=== PATIENT | female | born 1995 | race Caucasian/White ===

== ENCOUNTER 2020-01-19 01:04 | Emergency (ER) | payer BC, SELFPAY ==
--- OUTSIDE RECORDS SUMMARY | 2020-01-19 01:06 | XMS REPORT ---
:1995 [facility] Address [address] [place] [address] Care Team Providers Name Role Phone LINSEY GILLILAND Unavailable Unavailable Problems This patient has no known problems. Allergies, Adverse Reactions, Alerts This patient has no known allergies or adverse reactions. Medications This patient has no known medications. Results Test Description Test Time Test Comments Text Results Atomic Results Result Comments Culture, Urine 2017-05-08 10:14:00 Test Item Value Reference Range Comments Culture, Urine (test code=URC) NF Culture, Urine (test code=URC1) 25 MSF Chemistry - [id number] 01:45:00 Test Item Value Reference Range Comments Chemistry - Specials (test code=TSH3) 1.2111 uIU/mL 0.35-4.94 [id number] 01:41:00 Test Item Value Reference Range Comments Chemistry (test code=AMERICO) 28.0 U/L 25-125 [id number] 01:41:00 Test Item Value Reference Range Comments Chemistry (test code=LIP) 7 U/L 8-78 [id number] 01:41:00 Test Item Value Reference Range Comments Chemistry (test Less than 6.0 6.0-30.0 Therapeutic Range: 10.0 - 30.0 code=ACET-T) mcg/mL ug/mLToxic Range: Possible toxicity: 150 - 200 ug/mL Probable toxicity: Greater than 200 ug/mL*IMPORTANT TESTING INFORMATION* The half-life of NAC is 2 hours. The total NAC clearanceis 5.6 hours for adults and 11 hours for Newborns. Testing acetaminophen levels prior to a reasonable timeframe for clearance can cause falsely decreasedacetaminophen levels. Chemistry (test Less than 10 Less than 10 The pharmacological response to code=ETOH) mg/dL blood alcohol levels mayvary from individual to individual. Negative: Less than 10 mg/dL Toxic: 50 - 100 mg/dL Depression of EXCELSIOR MACHINE TENDER: Greater than 100 mg/dL Fatalities reported: Greater than 400 mg/dL Chemistry (test Less than 8.0 15.0-30.0 code=SALCY) mg/dL [id number] 01:32:00 Test Item Value Reference Range Comments Hematology (test code=WBCT) 10.8 thou/uL 4.8-10.8 Hematology (test code=RBCT) 4.69 mill/uL 4.20-5.40 Hematology (test code=HGBT) 14.3 g/dL 12.0-16.0 Hematology (test code=HCTT) 41.1 % 36.0-47.0 Hematology (test code=MCV) 87.8 fl 81.0-99.0 Hematology (test code=MCH) 30.5 pg 27.0-31.0 Hematology (test code=MCHC) 34.8 g/dL 32.0-36.0 Hematology (test code=RDW) 12.9 % 11.5-14.5 Hematology (test code=PLTT) 270 thou/uL 130-400 Hematology (test code=MPV) 10.3 fL 7.4-10.4 Hematology (test code=%NEUT) 69.3 % 42.0-75.0 Hematology (test code=%LYMPH) 22.9 % 21.0-51.0 Hematology (test code=%MONO) 6.3 % 0.0-10.0 Hematology (test code=%EOS) 0.6 % 0.0-10.0 Hematology (test code=%BASO) 0.9 % 0.0-1.0 Hematology (test code=NEUT#) 7.5 thou/uL 1.40-6.50 Hematology (test code=LYMPH#) 2.5 thou/uL 1.20-3.40 Hematology (test code=MONO#) 0.7 thou/uL 0.11-0.59 Hematology (test code=EOS#) 0.1 thou/uL 0.0-0.7 Hematology (test code=BASO#) 0.1 thou/uL 0.0-0.2 Chemistry - [id number] 01:32:00 Test Item Value Reference Range Comments Chemistry - Specials Less than 1.20 See Ranges Males and Non (test code=HCGQ) mIU/mL females: Less than 10 mIU/mLPregnancy, weeks of gestation mIU/mL 0.2 - 1 week 5 - 50 1 - 2 weeks 50 - 500 2 - 3 weeks 100 - 5,000 3 - 4 weeks 500 - 10,000 4 - 5 weeks 1,000 - 50,000 5 - 6 weeks 10,000 - 100,000 6 - 8 weeks 15,000 - 200,000 2 - 3 months 10,000 - 100,000 [id number] 01:24:00 Test Item Value Reference Range Comments Chemistry (test 140 mmol/L 136-145 code=NA-T) Chemistry (test code=K-T) 3.5 mmol/L 3.5-5.1 Chemistry (test code=CL) 108 mmol/L 98-107 Chemistry (test code=CO2) 20 mmol/L 22-29 Chemistry (test 16 mmol/L 10-20 code=ANGP) Chemistry (test code=BUN) 13 mg/dL 7.0-18.7 Chemistry (test 0.74 mg/dL 0.6-1.1 code=CREATT) Chemistry (test Greater than 90 Reference Range for code=EGFRMDRD) Estimated GFR: Greater than 90 mL/min/1.73 m2NOTE:The MDRD equation has not been validated for use with theelderly (over 70 years of age), women, patientswith serious comorbid condition or persons with extremes ofbody size, muscle mass, or nutritional status. Chemistry (test 113 mg/dL 70-105 code=GLU-T) Chemistry (test code=CA) 9.8 mg/dL 7.8-10.44 Chemistry (test 0.7 mg/dL 0.2-1.2 code=TBILI) Chemistry (test code=TP) 7.3 g/dL 6.0-8.3 Chemistry (test code=ALB) 4.5 g/dL 3.5-5.0 Chemistry (test 2.8 g/dL 2.4-3.5 code=GLOB) Chemistry (test code=AG) 1.6 g/dL 1.2-2.2 Chemistry (test code=ALP) 83 U/L 40-150 Chemistry (test code=AST) 14 U/L 5-34 Chemistry (test code=ALT) 14 U/L 8-55 [id number] 01:20:00 Test Item Value Reference Range Comments Urinalysis (test Dark Yellow Yellow code=UACLR) Urinalysis (test Slightly Cloudy Clear code=UACLY) Urinalysis (test 1.031 1.002-1.036 code=SPGR) Urinalysis (test 6.0 5.0-9.0 code=CARMEN) Urinalysis (test Negative Negative code=UALEU) Urinalysis (test Negative Negative code=UANIT) Urinalysis (test > or equal to 300 Neg-Trace code=PROUADIP) mg/dL Urinalysis (test Negative mg/dL Negative code=GLUCU) Urinalysis (test Negative mg/dL Negative code=KETU) Urinalysis (test 2.0 mg/dL 0.2-1.0 code=UAUROB) Urinalysis (test Small Negative CAU code=UABIL) TION Urine Bilirubin has a high incidence of false positiveresults due to urine color interference.Interpret results in conjunction with other clinicalfindings. Urinalysis (test Trace Negative code=UABLD) Urinalysis (test 4-6 HPF 0-3 code=UARBC) Urinalysis (test 11-20 HPF 0-3 code=UAWBC) Urinalysis (test 11-20 HPF 0-3 code=UASQUAM) Urinalysis (test 0-3 HPF 0-3 code=UATRANS) Urinalysis (test 0-3 HPF 0-3 code=UARENAL) Urinalysis (test 1+ HPF None Seen code=UABAC) Urinalysis (test Rare HPF None Seen code=UAYEAST) Urinalysis (test RARE AMORPH URATES Negative code=UACRST) HPF Urine Source: Urine [id number] 01:18:00 Test Item Value Reference Range Comments Toxicology (test Detected NotDetected code=ASCENCION) Toxicology (test Not Detected NotDetected code=PCP) Toxicology (test Not Detected NotDetected code=COCN) Toxicology (test Detected NotDetected code=METHAMPU) Toxicology (test Not Detected NotDetected code=OPIA) Toxicology (test Detected NotDetected code=AMPHU) Toxicology (test Not Detected NotDetected code=LIBIA) Toxicology (test Not Detected NotDetected code=TRICY) Toxicology (test Not Detected NotDetected code=MTD) Toxicology (test Not Detected NotDetected code=CATALINA) Toxicology (test Not Detected NotDetected code=OXYCOD) Toxicology (test Not Detected NotDetected code=PPX) Toxicology (test The [employer] Profile-V Panel code=MTCUTOFF) for Qualitative Drugs ofAbuse assays are for presumptive screening testing only.The drug class and detection limits are as follows:Drug Class Detection LimitAmphetamine 500 ng/mL*Barbiturates 200 ng/mLBenzodiazepines 150 ng/mL*Cocaine 150 ng/mL*Methamphetamine 500 ng/mL*Methadone 200 ng/mL*Opiates 100 ng/mL*Oxycodone 100 ng/mLPCP 25 ng/mLPropoxyphene 300 ng/mLTricyclic Antidepressants 300 ng/mLCannabinoids (THC) 50 ng/mLTests which yield a presumptive positive result must betested using a more specific alternate chemical method inorder to obtain a confirmed analytical result. Additionalconfirmation and identification may be ordered on a routinebasis, if desired. Presumptive positive urines are held fortwo weeks. Urine Source: Urine Voided
[2020-01-19] MEDS ORDERED: NA CHLORIDE 0.9% 1,000 ML ONE (01:53)
[2020-01-19 01:59] LABS: Absolute Lymphocytes (CBC) 3.5 K/uL (0.7-4.9); Basophils % 0.7 % (0-1.3); Hematocrit 39.4 % (36.0-45.0); Lymphocytes % 23.7 % (15.3-44.8); RBC Red Blood Cell Count 4.52 M/uL (3.86-4.86)
[2020-01-19 02:01] LABS: Protime INR 0.92
[2020-01-19 02:19] LABS: ALT/SGPT 25 U/L (12-78); AST/SGOT 15 U/L (15-37); Albumin 3.4 g/dL (3.4-5.0); Alkaline Phosphatase 89 U/L (45-117); BUN Blood Urea Nitrogen 10 mg/dL (7-18); Bicarbonate 21 mmol/L (21-32); Bilirubin Direct < 0.1 mg/dL (0-0.2); Bilirubin Total 0.2 mg/dL (0.2-1.0); Glucose Level 167 mg/dL (74-106); Potassium 3.5 mmol/L (3.5-5.1); Protein, Total 7.4 g/dL (6.4-8.2); Sodium Level 139 mmol/L (136-145); Troponin (Emerg Dept Use Only) < 0.02 ng/mL (0.0-0.045)
[2020-01-19] MEDS ORDERED: MORPHINE 4 MG/ML SYR ONE (02:45)
[2020-01-19] MEDS ORDERED: ONDANSETRON 4 MG/2 ML VIAL ONE (02:45)
--- NOTE | 2020-01-19 03:00 | ER ---
Nurse's Notes [facility] Name: Nina Parrish Age: 24 yrs Sex: Female : 1995 Arrival Date: 01/19/2020 Time: 01:06 Bed 17 Private MD: Diagnosis: Chest pain, unspecified Presentation: 01/19 01:21 Presenting complaint: Patient states: Pt reports she started having chest pain two to ea three days ago, reports pain radiates to back, states "I also have a lump in my left breast that has been there for the past ten years". Transition of care: patient was not received from another setting of care. Onset of symptoms was January 19, 2020. Risk Assessment: Do you want to hurt yourself or someone else? Patient reports no desire to harm self or others. Initial Sepsis Screen: Does the patient meet any 2 criteria? HR > 90 bpm. Does the patient have a suspected source of infection? No. Patient's initial sepsis screen is negative. Care prior to arrival: None. 01:21 Method Of Arrival: Ambulatory ea 01:21 Acuity: OMAIRA 3 ea Triage Assessment: :24 General: Appears uncomfortable, Behavior is appropriate for age. Pain: Complains of ea pain in left breast Pain radiates to back and chest. Cardiovascular: Patient's skin is warm and dry. Respiratory: Airway is patent Respiratory effort is even, unlabored, Respiratory pattern is regular, symmetrical. Derm: Skin is pink, warm \\T\\ dry. Musculoskeletal: Circulation, motion, and sensation intact. [employer] OFFICER: 01:22 LMP N/A - control method ea Historical: - Allergies: :24 No Known Allergies; ea - Home Meds: :24 None [Active]; ea - PMHx: :24 None; ea - PSHx: :24 None; ea - Immunization history:: Adult Immunizations up to date. - Coronavirus screen:: The patient has NOT traveled to [place] in the past 14 days. Proceed with normal triage process as indicated. - Social history:: Smoking status: Patient reports the use of cigarette tobacco products, denies chronic smoking, but will smoke occasionally. - Ebola Screening: : No symptoms or risks identified at this time. Screenin:23 Abuse screen: Denies threats or abuse. Nutritional screening: No deficits noted. ea Tuberculosis screening: No symptoms or risk factors identified. Fall Risk None identified. Assessment: 01:35 General: Appears in no apparent distress. Behavior is calm, cooperative, appropriate wh for age. Pain: Complains of pain in left breast Pain radiates to back Pain currently is 66 out of 10 on a pain scale. Quality of pain is described as aching, Pain began 2-3 days ago. Neuro: Level of Consciousness is awake, alert, obeys commands, Oriented to person, place, time, situation, Appropriate for age. Cardiovascular: Heart tones S1 S2 Rhythm is regular. Respiratory: Airway is patent Respiratory effort is even, unlabored, Respiratory pattern is regular, symmetrical, Breath sounds are clear bilaterally. GI: Abdomen is flat, non-distended. : No signs and/or symptoms were reported regarding the genitourinary system. EENT: No signs and/or symptoms were reported regarding the EENT system. Derm: Skin is intact, is healthy with good turgor, Skin is pink, warm \\T\\ dry. normal. Musculoskeletal: Circulation, motion, and sensation intact. 02:51 Reassessment: Patient appears in no apparent distress at this time. No changes from previously documented assessment. Patient and/or family updated on plan of care and expected duration. Pain level reassessed. Patient is alert, oriented x 3, equal unlabored respirations, skin warm/dry/pink. Vital Signs: 01:22 BP 134 / 78; Pulse 119; Resp 18; Temp 98.9; Pulse Ox 95% ; Weight 98.43 kg; Height 5 ea ft. 1 in. (154.94 cm); Pain 6/10; 02:54 BP 116 / 65; Pulse 92; Resp 18; Pulse Ox 98% on R/A; wh 03:09 BP 109 / 74; Pulse 102; Resp 17; Temp 98.5; Pulse Ox 100% on R/A; rv 01:22 Body Mass Index 41.00 (98.43 kg, 154.94 cm) ED Course: 01:06 Patient arrived in ED. ag3 01:21 Trent Schmidt NP is PHCP. pm1 01:21 Matheus Ann MD is Attending Physician. pm1 01:22 Triage completed. ea 01:24 Arm band placed on right wrist. Patient placed in an exam room, on a stretcher, on ea pulse oximetry. 01:25 Patient maintains SpO2 saturation greater than 95% on room air. ea 01:35 Patient has correct armband on for positive identification. Bed in low position. Call light in reach. Side rails up X 1. Pulse ox on. NIBP on. 01:49 Ceferino Proctor is Primary Nurse. 01:57 Inserted saline lock: 24 gauge in right hand, using aseptic technique. ea 02:34 XRAY Chest (1 view) In Process Unspecified. EDMS 03:09 No provider procedures requiring assistance completed. IV discontinued, intact, rv bleeding controlled, No redness/swelling at site. Pressure dressing applied. Administered Medications: 01:57 Drug: NS 0.9% 1000 ml Route: IV; Rate: 1000 ml; Site: right hand; ea 03:10 Follow up: Response: No adverse reaction; IV Status: Completed infusion ea 03:10 Follow up: IV Status: Completed infusion; IV Intake: 1000ml rv 02:47 Drug: morphine 4 mg Route: IVP; Site: right hand; ea 03:10 Follow up: Response: No adverse reaction ea 02:47 Drug: Zofran 4 mg Route: IVP; Site: right hand; ea 03:10 Follow up: Response: No adverse reaction rv Intake: 03:10 IV: 1000ml; Total: 1000ml. rv Outcome: 02:59 Discharge ordered by . pm1 03:09 Discharged to home ambulatory. rv 03:09 Condition: good 03:09 Discharge instructions given to patient, Instructed on discharge instructions, follow up and referral plans. medication usage, Demonstrated understanding of instructions, follow-up care, medications, Prescriptions given X 1. 03:10 Patient left the ED. rv Signatures: Dispatcher [employer] EDID Trent Schmidt, [employer]IC[employer] INTERNAL MEDICINE NURSE PRACTITIONER pm1 Emmie Pantoja, RN Ceferino Rob ea Malcolm Fragoso RN RN Delma Vargas3
--- NOTE | 2020-01-19 03:01 | EDPHYS ---
Physician Documentation [facility] Name: Nina Parrish Age: 24 yrs Sex: Female : 1995 Arrival Date: 01/19/2020 Time: 01:06 Bed 17 Private MD: ED Physician Matheus Ann HPI: 01/19 01:28 This 24 yrs old Female presents to ER via Ambulatory with complaints of Chest pm1 Pain. 01:28 The patient or guardian reports chest pain that is located primarily in the anterior pm1 aspect of right upper chest and left breast. Onset: The symptoms/episode began/occurred 1 week(s) ago. The pain radiates to back. Associated signs and symptoms: The patient has no apparent associated signs or symptoms, Pertinent negatives: abdominal pain, cough, fever, shortness of breath, vomiting. Modifying factors: The patient symptoms are alleviated by nothing, the patient symptoms are aggravated by Deep breathing. The chest pain is described as sharp. Duration: The patient or guardian reports multiple episodes. The patient has not experienced similar symptoms in the past. The patient has not recently seen a physician. Reports right breast mas present for 10 years. 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 - Coronavirus screen:: The patient has NOT traveled to [place] in the past 14 days. Proceed with normal triage process as indicated. - Social history:: Smoking status: Patient reports the use of cigarette tobacco products, denies chronic smoking, but will smoke occasionally. - Ebola Screening: : No symptoms or risks identified at this time. ROS: 01:28 Constitutional: Negative for fever, chills, and weight loss, Eyes: Negative for injury, pm1 pain, redness, and discharge, ENT: Negative for injury, pain, and discharge, Neck: Negative for injury, pain, and swelling. 01:28 Respiratory: Negative for shortness of breath, cough, wheezing, and pleuritic chest pain, Abdomen/GI: Negative for abdominal pain, nausea, vomiting, diarrhea, and constipation. 01:28 : Negative for injury, bleeding, discharge, and swelling, MS/Extremity: Negative for injury and deformity, Skin: Negative for injury, rash, and discoloration, Neuro: Negative for headache, weakness, numbness, tingling, and seizure. 01:28 Cardiovascular: Positive for chest pain, Negative for edema, palpitations. 01:28 Back: Positive for of the left scapular area and right scapular area. Exam: :28 Constitutional: This is a well developed, well nourished patient who is awake, alert, pm1 and in no acute distress. Head/Face: Normocephalic, atraumatic. Neck: Trachea midline, no thyromegaly or masses palpated, and no cervical lymphadenopathy. Supple, full range of motion without nuchal rigidity, or vertebral point tenderness. No Meningismus. :28 Cardiovascular: Regular rate and rhythm with a normal S1 and S2. No gallops, murmurs, or rubs. No pulse deficits. Respiratory: Lungs have equal breath sounds bilaterally, clear to auscultation and percussion. No rales, rhonchi or wheezes noted. No increased work of breathing, no retractions or nasal flaring. Abdomen/GI: Soft, non-tender, with normal bowel sounds. No distension or tympany. No guarding or rebound. No evidence of tenderness throughout. Back: No spinal tenderness. No costovertebral tenderness. Full range of motion. Skin: Warm, dry with normal turgor. Normal color with no rashes, no lesions, and no evidence of cellulitis. MS/ Extremity: Pulses equal, no cyanosis. Neurovascular intact. Full, normal range of motion. :28 Chest/axilla: Inspection: normal, Palpation: tenderness, that is mild, of the anterior aspect of left upper chest, that totally reproduces the patient's complaints, Breasts: exam deferred to PCP. :28 Neuro: Orientation: is normal, Motor: is normal, moves all fours. Vital Signs: 01:22 BP 134 / 78; Pulse 119; Resp 18; Temp 98.9; Pulse Ox 95% ; Weight 98.43 kg; Height 5 ea ft. 1 in. (154.94 cm); Pain 6/10; 02:54 BP 116 / 65; Pulse 92; Resp 18; Pulse Ox 98% on R/A; wh 03:09 BP 109 / 74; Pulse 102; Resp 17; Temp 98.5; Pulse Ox 100% on R/A; rv 01:22 Body Mass Index 41.00 (98.43 kg, 154.94 cm) ea MDM: 01:22 Patient medically screened. pm1 02:58 Data reviewed: vital signs. Data interpreted: Pulse oximetry: on room air is 98 %. pm1 Interpretation: normal. Counseling: I had a detailed discussion with the patient and/or guardian regarding: the historical points, exam findings, and any diagnostic results supporting the discharge/admit diagnosis, lab results, radiology results, the need for outpatient follow up, to return to the emergency department if symptoms worsen or persist or if there are any questions or concerns that arise at home. 01/19 01:28 Order name: Basic Metabolic Panel; Complete Time: 02:42 pm01/19 01:28 Order name: CBC with Diff; Complete Time: 02:42 pm01/19 01:28 Order name: LFT's; Complete Time: 02:42 pm01/19 01:28 Order name: Magnesium; Complete Time: 02:42 pm01/19 01:28 Order name: PT-INR; Complete Time: 02:42 pm01/19 01:28 Order name: Troponin (emerg Dept Use Only); Complete Time: 02:42 pm01/19 01:28 Order name: XRAY Chest (1 view) pm01/19 01:28 Order name: EKG; Complete Time: 01:31 pm01/19 01:28 Order name: Cardiac monitoring; Complete Time: 01:49 pm01/19 02:51 Order name: Urine Dipstick--Ancillary (enter results); Complete Time: 03:08 mt 01/19 02:51 Order name: Urine --Ancillary (enter results); Complete Time: 03:08 mt 01/19 01:28 Order name: EKG - Nurse/Tech; Complete Time: 01:49 pm01/19 01:28 Order name: IV Saline Lock; Complete Time: 01:57 pm01/19 01:28 Order name: Labs collected and sent; Complete Time: 01:49 pm01/19 01:28 Order name: O2 Per Protocol; Complete Time: 01:49 pm01/19 01:28 Order name: O2 Sat Monitoring; Complete Time: 01:49 pm1 01/19 01:28 Order name: Urine Dipstick-Ancillary (obtain specimen); Complete Time: 02:51 pm1 01/19 01:28 Order name: Urine Test (obtain specimen); Complete Time: 02:51 pm1 Administered Medications: 01:57 Drug: NS 0.9% 1000 ml Route: IV; Rate: 1000 ml; Site: right hand; ea 03:10 Follow up: Response: No adverse reaction; IV Status: Completed infusion ea 03:10 Follow up: IV Status: Completed infusion; IV Intake: 1000ml rv 02:47 Drug: morphine 4 mg Route: IVP; Site: right hand; ea 03:10 Follow up: Response: No adverse reaction ea 02:47 Drug: Zofran 4 mg Route: IVP; Site: right hand; ea 03:10 Follow up: Response: No adverse reaction rv Disposition: 01/19/20 02:59 Discharged to Home. Impression: Chest pain, unspecified. - Condition is Stable. - Discharge Instructions: Nonspecific Chest Pain. - Prescriptions for Cyclobenzaprine 10 mg Oral Tablet - take 1 tablet by ORAL route every 8 hours As needed; 30 tablet. - Medication Reconciliation Form, Thank You Letter, Antibiotic Education, Prescription Opioid Use, Work release form form. - Follow up: Emergency Department; When: As needed; Reason: Worsening of condition. Follow up: Private Physician; When: 2 - 3 days; Reason: Recheck today's complaints, Continuance of care, Re-evaluation by your physician. - Problem is new. - Symptoms have improved. Addendum: 01/25/2020 16:30 Co-signature as Attending Physician, Matheus jaimes a2 Signatures: Dispatcher [employer] EDMS Trent Schmidt NP VAMP MAKER pm1 Emmie Pantoja RN RN ea Alzahri, Mohammad, MD MD ma2 Malcolm Fragoso RN RN rv Corrections: (The following items were deleted from the chart) 01/19 03:10 02:59 01/19/2020 02:59 Discharged to Home. Impression: Chest pain, unspecified. rv Condition is Stable. Forms are Medication Reconciliation Form, Thank You Letter, Antibiotic Education, Prescription Opioid Use. Follow up: Emergency Department; When: As needed; Reason: Worsening of condition. Follow up: Private Physician; When: 2 - 3 days; Reason: Recheck today's complaints, Continuance of care, Re-evaluation by your physician. Problem is new. Symptoms have improved. pm1
[2020-01-19 03:06] LABS: Urine Blood 1+ (NEG); Urine Glucose NEGATIVE (NEG); Urine Protein NEGATIVE (NEG); Urine Specific Gravity 1.025 (1.005-1.030); Urine pH 5.5 (5.0-7.0)
[2020-01-19 04:51] VITALS: BP 109/74; TEMP 98.5; O2SAT 100
--- NOTE | 2020-01-19 06:55 | RAD REPORT ---
EXAM DESCRIPTION: RAD - Chest Single View - 01/19/2020 2:30 am CLINICAL HISTORY: CHEST PAIN Chest pain. COMPARISON: No comparisons FINDINGS: Portable technique limits examination quality. Mild nonspecific interstitial prominence may represent asthma or bronchitis. The lungs are otherwise clear. The heart is normal in size. No displaced fractures.
--- NOTE | 2020-01-19 10:00 | EKG ---
Test Date: 2020-01-19 Test Time: 01:21:38 Country Printer: CLIFFORD MEASUREMENT RESULTS: Intervals: Rate: 105 ME: 160 QRSD: 86 QT: 340 QTc: 449 [place]: P: 42 ME: 160 QRS: 9 T: 47 INTERPRETIVE STATEMENTS: Sinus tachycardia Possible Anterior infarct, age undetermined Abnormal ECG No previous ECG available for comparison Electronically Signed On 01-19-20 10:00:18 CENTER CUSTOMER SERVICE ASSOCIATE by Ernesto Riggs
== END 2020-01-19 03:10 | disposition home or self-care (01) ==
LOC: ER 01:04
DX: R07.9 Chest pain, unspecified (principal); Z72.0 Tobacco use
CPT/HCPCS: 36415; 71045; 80048; 80076; 81003; 81025; 83735; 84484; 85025; 85610; 93005; 96361; 96374; 96375; 99284; J2405; J7030

== ENCOUNTER 2020-02-11 17:19 | Emergency (ER) | payer SELFPAY ==
--- OUTSIDE RECORDS SUMMARY | 2020-02-11 17:22 | XMS REPORT ---
:1995 [facility] Address [address] [place] [address] Care Team Providers Name Role Phone LINSEY [...] Urine (test code=URC1) 25 MSF Chemistry - [id number] 01:45:00 Test Item Value Reference Range Comments Chemistry - Specials (test code=TSH3) 1.2111 uIU/mL 0.35-4.94 [id number] 01:41:00 Test Item Value Reference Range Comments Chemistry (test code=AMERICO) 28.0 U/L 25-125 [id number] 01:41:00 Test Item Value Reference Range Comments Chemistry (test code=LIP) 7 U/L 8-78 [id number] 01:41:00 Test Item Value Reference Range Comments [...] Toxic: 50 - 100 mg/dL Depression of BAG MAKING MACHINE TENDER: Greater than 100 mg/dL Fatalities reported: Greater than 400 mg/dL Chemistry (test Less than 8.0 15.0-30.0 code=SALCY) mg/dL [id number] 01:32:00 Test Item Value Reference Range Comments [...] (test code=BASO#) 0.1 thou/uL 0.0-0.2 Chemistry - [id number] 01:32:00 Test Item Value Reference Range Comments [...] 2 - 3 months 10,000 - 100,000 [id number] 01:24:00 Test Item Value Reference Range Comments [...] 5-34 Chemistry (test code=ALT) 14 U/L 8-55 [id number] 01:20:00 Test Item Value Reference Range Comments [...] URATES Negative code=UACRST) HPF Urine Source: Urine [id number] 01:18:00 Test Item Value Reference Range Comments [...] Not Detected NotDetected code=PPX) Toxicology (test The [employer] Profile-V Panel code=MTCUTOFF) for Qualitative Drugs ofAbuse [...]
--- NOTE | 2020-02-11 18:58 | RAD REPORT ---
EXAM DESCRIPTION: RAD - Chest Pa And Lat (2 Views) - 02/11/2020 6:37 pm CLINICAL HISTORY: CHEST PAIN, intermittent left-sided pain COMPARISON: Portable chest January 19, 2020 TECHNIQUE: Frontal and lateral views of the chest were obtained. FINDINGS: The lungs are clear of a peripheral mass or consolidation. Interstitial pattern matches co mparison. Heart size is normal and central vasculature is within normal limits. No pleural effusio n or pneumothorax seen. No acute bony finding noted. No aortic abnormality. IMPRESSION: No acute cardiopulmonary process.
[2020-02-11 19:28] LABS: Urine Bacteria <20 /HPF (<20); Urine Culture Reflex Order NOT NEEDED
--- NOTE | 2020-02-11 20:48 | RAD REPORT ---
EXAM DESCRIPTION: CT - Chest For Pe Angio - 02/11/2020 8:30 pm CLINICAL HISTORY: CHEST PAIN CHEST PAIN , left-sided chest pain COMPARISON: Chest Pa And Lat (2 Views) dated 02/11/2020 TECHNIQUE: Dynamically enhanced 3 mm thick images of the chest were obtained during administration o f approximately 150mL Isovue 370 IV contrast. Coronal and oblique MIP reconstruction images were gene rated and reviewed. Exam utilizes a protocol to evaluate the pulmonary arterial tree. All CT scans are performed using dose optimization technique as appropriate and may include automated exposure control or mA/KV adjustment according to patient size. FINDINGS: No pulmonary emboli are identified. The aorta as imaged shows no acute or suspicious finding. No pericardial thickening or effusion. No infiltrate or mass in the lung parenchyma. No pleural effusion or pleural thickening. No mediastinal or hilar suspicious masses. No chest wall masses or abnormal axillary lymphadenopathy. IMPRESSION: No pulmonary emboli identified. No other significant or suspicious findings.
--- NOTE | 2020-02-11 21:52 | ER ---
Nurse's Notes [facility] Name: Nina Parrish Age: 24 yrs Sex: Female : 1995 Arrival Date: 02/11/2020 Time: 17:22 Bed 24 Private MD: Diagnosis: Chest pain, unspecified;Abnormal uterine and vaginal bleeding, unspecified Presentation: 02/10 17:38 Chief complaint: Patient states: Left sided chest pain that radiates to the back for aj1 the past 2 weeks. Reports episodes are intermittent and she describes them as feeling like pressure on her chest. Patient also reports that she has a Nexplanon implant, she has not had a period in 2 years, but now she has had vaginal bleeding for the past 2 days. Coronavirus screen: The patient has NOT traveled to a country currently being monitored by the CDC within the last 14 days. Ebola Screen: Patient denies travel to an Ebola-affected area in the 21 days before illness onset. Initial Sepsis Screen: Does the patient meet any 2 criteria? No. Patient's initial sepsis screen is negative. Does the patient have a suspected source of infection? No. Patient's initial sepsis screen is negative. Risk Assessment: Do you want to hurt yourself or someone else? Patient reports no desire to harm self or others. 17:38 Method Of Arrival: Ambulatory aj1 17:38 Acuity: OMAIRA 3 aj1 Triage Assessment: 17:41 General: Appears in no apparent distress. comfortable, Behavior is calm, cooperative, aj1 appropriate for age. Pain: Complains of pain in anterior aspect of left upper chest Pain radiates to back Pain currently is 6 out of 10 on a pain scale. Quality of pain is described as pressure. Cardiovascular: Reports chest pain. 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 - Social history:: Smoking status: Reported history of juuling and/or vaping. Screenin:00 Abuse screen: Denies threats or abuse. Denies injuries from another. Nutritional aj1 screening: No deficits noted. Tuberculosis screening: No symptoms or risk factors identified. Assessment: 18:00 General: Appears in no apparent distress. comfortable, Behavior is calm, cooperative, aj1 appropriate for age. Pain: Complains of pain in anterior aspect of left upper chest Pain radiates to back. Pain: Pain began 2 weeks ago. Neuro: Level of Consciousness is awake, alert, obeys commands, Oriented to person, place, time, situation. Cardiovascular: Reports chest pain, Denies palpitations, shortness of breath, Heart tones S1 S2 present Patient's skin is warm and dry. Rhythm is regular. Respiratory: Airway is patent Respiratory effort is even, unlabored, Respiratory pattern is regular, symmetrical. GI: No signs and/or symptoms were reported involving the gastrointestinal system. : Reports vaginal bleeding that is bright red. EENT: No signs and/or symptoms were reported regarding the EENT system. Derm: No signs and/or symptoms reported regarding the dermatologic system. Skin is pink, warm \T\ dry. normal. Musculoskeletal: No signs and/or symptoms reported regarding the musculoskeletal system. Circulation, motion, and sensation intact. 19:14 Reassessment: Patient appears in no apparent distress at this time. Patient and/or ls4 family updated on plan of care and expected duration. Pain level reassessed. Patient is alert, oriented x 3, equal unlabored respirations, skin warm/dry/pink. Respiratory: Airway is patent Respiratory effort is even, unlabored, Breath sounds are clear bilaterally. 20:00 Reassessment: Patient appears in no apparent distress at this time. Patient and/or ls4 family updated on plan of care and expected duration. Pain level reassessed. Patient is alert, oriented x 3, equal unlabored respirations, skin warm/dry/pink. 21:00 Reassessment: Patient appears in no apparent distress at this time. Patient and/or ls4 family updated on plan of care and expected duration. Pain level reassessed. Patient is alert, oriented x 3, equal unlabored respirations, skin warm/dry/pink. Patient states feeling better. 22:00 Reassessment: Patient appears in no apparent distress at this time. Patient and/or ls4 family updated on plan of care and expected duration. Pain level reassessed. Patient is alert, oriented x 3, equal unlabored respirations, skin warm/dry/pink. 22:41 Also complains of no other symptoms. ls4 Vital Signs: 17:38 BP 126 / 95; Pulse 88; Resp 18; Temp 98.4; Pulse Ox 99% on R/A; Weight 90.72 kg (R); aj1 Height 5 ft. 1 in. (154.94 cm) (R); Pain 6/10; 22:15 BP 129 / 99; Pulse 75; Resp 14; Temp 98.2; Pulse Ox 99% on R/A; Pain 3/10; ls4 17:38 Body Mass Index 37.79 (90.72 kg, 154.94 cm) aj1 ED Course: 17:22 Patient arrived in ED. ag5 17:38 Celi Batres, RN is Primary Nurse. aj1 17:40 Triage completed. aj1 17:41 Arm band placed on Patient placed in an exam room. aj1 18:00 Patient has correct armband on for positive identification. Pulse ox on. NIBP on. aj1 18:00 No provider procedures requiring assistance completed. Patient maintains SpO2 aj1 saturation greater than 95% on room air. 18:11 Harmony Ness FNP-C is PHCP. snw 18:11 Marquise Sales MD is Attending Physician. snw 18:48 Chest Pa And Lat (2 Views) XRAY In Process Unspecified. EDMS 20:31 CT Chest For PE Angio In Process Unspecified. EDMS 22:00 IV discontinued, intact, bleeding controlled, No redness/swelling at site. ls4 Administered Medications: 22:39 Not Given (Patient Refused): TORadol 30 mg IVP once ls4 Outcome: 21:52 Discharge ordered by . snw 21:55 Discharged to home ambulatory. ls4 21:55 Condition: good 21:55 Discharge instructions given to patient, family, Instructed on discharge instructions, ls4 follow up and referral plans. medication usage, Demonstrated understanding of instructions, follow-up care, medications. 21:55 Patient left the ED. ls4 Signatures: Dispatcher [employer] EDVA Celi Batres, RN RN aj1 Harmony Ness FNP-C FNP-Divya Lara RN RN ls4 Pamela Blood ag5 Corrections: (The following items were deleted from the chart) 22:44 21:55 Discharged to home ambulatory, ls4 ls4 22:44 22:42 Patient left the ED. ls4 ls4
--- NOTE | 2020-02-11 21:53 | EDPHYS ---
Physician Documentation [facility] Name: Nina Parrish Age: 24 yrs Sex: Female : 1995 Arrival Date: 02/11/2020 Time: 17:22 Bed 24 Private MD: ED Physician Marquise Sales HPI: 02/10 20:35 This 24 yrs old Female presents to ER via Ambulatory with complaints of Chest snw Pain, Vaginal Bleeding. 20:35 The patient or guardian reports chest pain that is located primarily in the anterior snw chest wall, left. 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 - Social history:: Smoking status: Reported history of juuling and/or vaping. ROS: 20:32 Constitutional: Negative for fever, chills, and weight loss, Eyes: Negative for injury, snw pain, redness, and discharge, ENT: Negative for injury, pain, and discharge, Neck: Negative for injury, pain, and swelling, Respiratory: Negative for shortness of breath, cough, wheezing, and pleuritic chest pain, Abdomen/GI: Negative for abdominal pain, nausea, vomiting, diarrhea, and constipation, Back: Negative for injury and pain, MS/Extremity: Negative for injury and deformity, Skin: Negative for injury, rash, and discoloration, Neuro: Negative for headache, weakness, numbness, tingling, and seizure. 20:32 Cardiovascular: Positive for chest pain, of the anterior aspect of left upper chest. 20:32 : Positive for vaginal bleeding x 2 days - implanted control placed per Dr. Calderon 2 years ago, no menses until past two days. Exam: 20:32 Constitutional: This is a well developed, well nourished patient who is awake, alert, snw and in no acute distress. Head/Face: Normocephalic, atraumatic. Eyes: Pupils equal round and reactive to light, extra-ocular motions intact. Lids and lashes normal. Conjunctiva and sclera are non-icteric and not injected. Cornea within normal limits. Periorbital areas with no swelling, redness, or edema. ENT: Nares patent. No nasal discharge, no septal abnormalities noted. Tympanic membranes are normal and external auditory canals are clear. Oropharynx with no redness, swelling, or masses, exudates, or evidence of obstruction, uvula midline. Mucous membranes moist. Neck: Trachea midline, no thyromegaly or masses palpated, and no cervical lymphadenopathy. Supple, full range of motion without nuchal rigidity, or vertebral point tenderness. No Meningismus. Chest/axilla: Normal chest wall appearance and motion. Nontender with no deformity. No lesions are appreciated. Cardiovascular: Regular rate and rhythm with a normal S1 and S2. No gallops, murmurs, or rubs. Normal PMI, no JVD. No pulse deficits. Respiratory: Lungs have equal breath sounds bilaterally, clear to auscultation and percussion. No rales, rhonchi or wheezes noted. No increased work of breathing, no retractions or nasal flaring. Abdomen/GI: Soft, non-tender, with normal bowel sounds. No distension or tympany. No guarding or rebound. No evidence of tenderness throughout. Back: No spinal tenderness. No costovertebral tenderness. Full range of motion. Skin: Warm, dry with normal turgor. Normal color with no rashes, no lesions, and no evidence of cellulitis. MS/ Extremity: Pulses equal, no cyanosis. Neurovascular intact. Full, normal range of motion. Neuro: Awake and alert, GCS 15, oriented to person, place, time, and situation. Cranial nerves II-XII grossly intact. Motor strength 5/5 in all extremities. Sensory grossly intact. Cerebellar exam normal. Normal gait. Psych: Awake, alert, with orientation to person, place and time. Behavior, mood, and affect are within normal limits. Vital Signs: 17:38 BP 126 / 95; Pulse 88; Resp 18; Temp 98.4; Pulse Ox 99% on R/A; Weight 90.72 kg (R); aj1 Height 5 ft. 1 in. (154.94 cm) (R); Pain 6/10; 22:15 BP 129 / 99; Pulse 75; Resp 14; Temp 98.2; Pulse Ox 99% on R/A; Pain 3/10; ls4 17:38 Body Mass Index 37.79 (90.72 kg, 154.94 cm) aj1 MDM: 18:31 Patient medically screened. snw 21:20 Data interpreted: Pulse oximetry: on room air is 99 %. Interpretation: normal. snw Counseling: I had a detailed discussion with the patient and/or guardian regarding: the historical points, exam findings, and any diagnostic results supporting the discharge/admit diagnosis, the presence of at least one elevated blood pressure reading (>120/80) during this emergency department visit, lab results, radiology results, the need for outpatient follow up, to return to the emergency department if symptoms worsen or persist or if there are any questions or concerns that arise at home, smoking cessation. Response to treatment: the patient's symptoms have mildly improved after treatment. Special discussion: Based on the patient's history, exam, and Dx evaluation, there is no indication for emergent intervention or inpatient Tx. It is understood by the patient/guardian that if the Sx's persist or worsen they need to return immediately for re-evaluation. Based on the history and exam findings, there is no indication for further emergent testing or inpatient evaluation. I discussed with the patient/guardian the need to see the primary care provider for further evaluation of the symptoms. 22:03 ECG:. Data reviewed: vital signs, nurses notes. snw 02/10 18:14 Order name: Urine Microscopic Only; Complete Time: 19:33 snw 02/10 18:14 Order name: DD; Complete Time: 19:48 snw 02/10 18:14 Order name: Chest Pa And Lat (2 Views) XRAY; Complete Time: 19:33 snw 02/10 19:48 Order name: CT Chest For PE Angio; Complete Time: 20:57 snw 02/10 20:57 Order name: EKG; Complete Time: 20:57 snw 02/10 18:14 Order name: Urine Test (obtain specimen); Complete Time: 19:13 snw 02/10 18:14 Order name: Urine Dipstick-Ancillary (obtain specimen); Complete Time: 19:13 snw 02/10 20:57 Order name: EKG - Nurse/Tech; Complete Time: 22:16 snw EC:20 Rhythm is regular. QRS [place] is Normal. [place] interval is normal. QRS interval is normal. snw QT interval is normal. No Q waves. T waves are Normal. Clinical impression: Normal ECG. Administered Medications: 22:39 Not Given (Patient Refused): TORadol 30 mg IVP once ls4 Disposition: 02/11 07:38 Co-signature as Attending Physician, Marquise Sales MD I agree with the assessment and kdr plan of care. Disposition: 02/11/20 21:52 Discharged to Home. Impression: Chest pain, unspecified, Abnormal uterine and vaginal bleeding, unspecified. - Condition is Stable. - Discharge Instructions: Nonspecific Chest Pain, Hypertension, Dysfunctional Uterine Bleeding, Heat Therapy. - Prescriptions for Diclofenac Sodium 75 mg Oral Tablet Sustained Release - take 1 tablet by ORAL route 2 times per day; 30 tablet. orphenadrine citrate 100 mg Oral Tablet Sustained Release - take 1 tablet by ORAL route 2 times per day As needed; 20 tablet. - Work release form, Medication Reconciliation Form, Thank You Letter, Antibiotic Education, Prescription Opioid Use form. - Follow up: Emergency Department; When: As needed; Reason: Worsening of condition. Follow up: Private Physician; When: 2 - 3 days; Reason: Recheck today's complaints, Continuance of care, Re-evaluation by your physician. Signatures: Dispatcher [employer] EDMS Celi Batres RN RN aj1 Marquise Sales MD MD [facility] Harmony Ness, HOSPITALIST MEDICAL DIRECTOR-C HOSPITALIST MEDICAL DIRECTOR-Csnw Divya Barnes RN RN ls4 Corrections: (The following items were deleted from the chart) 02/10 22:42 21:52 02/11/2020 21:52 Discharged to Home. Impression: Chest pain, unspecified; ls4 Abnormal uterine and vaginal bleeding, unspecified. Condition is Stable. Forms are Medication Reconciliation Form, Thank You Letter, Antibiotic Education, Prescription Opioid Use. Follow up: Emergency Department; When: As needed; Reason: Worsening of condition. Follow up: Private Physician; When: 2 - 3 days; Reason: Recheck today's complaints, Continuance of care, Re-evaluation by your physician. snw
[2020-02-11 23:00] VITALS: O2SAT 99
[2020-02-11 23:01] VITALS: BP 129/99; TEMP 98.2
--- NOTE | 2020-02-12 07:29 | EKG ---
Test Date: 2020-02-11 Test Time: 21:48:14 Filter Screen Cleaner: ALYSHA MEASUREMENT RESULTS: Intervals: Rate: 73 MA: 146 QRSD: 94 QT: 422 QTc: 464 [place]: P: 37 MA: 146 QRS: 12 T: 37 INTERPRETIVE STATEMENTS: Normal sinus rhythm Normal ECG Compared to ECG 01/19/2020 01:21:38 Sinus tachycardia no longer present Myocardial infarct finding no longer present Electronically Signed On 02-12-20 07:27:43 CDT by Ernesto Riggs
== END 2020-02-11 22:42 | disposition home or self-care (01) ==
LOC: ER 17:19
DX: N93.9 Abnormal uterine and vaginal bleeding, unspecified (principal)
CPT/HCPCS: 36415; 71046; 71275; 81015; 85379; 93005; 99284; Q9967

== ENCOUNTER 2020-06-07 20:20 | Emergency (ER) | payer SELFPAY ==
--- NOTE | 2020-06-07 21:53 | ER ---
Nurse's Notes [facility] Name: Nina Parrish Age: 24 yrs Sex: Female : 1995 Arrival Date: 06/07/2020 Time: 20:22 Bed 11 Private MD: Diagnosis: Dental Abscess Presentation: 06/07 21:07 Chief complaint: Patient states: Abscess on gum on lower mouth. Pain and swelling on ca1 mouth at the lower lip area. Coronavirus screen: Proceed with normal triage. Patient denies a cough. Patient denies shortness of breath or difficulty breathing. Patient denies measured and/or subjective temperature greater than 100.4F prior to today's visit. Patient denies travel on a cruise ship or to a country the [facility] currently lists as an affected area. Patient denies contact with known and/or suspected case of COVID-19. Ebola Screen: Patient negative for fever greater than or equal to 101.5 degrees Fahrenheit, and additional compatible Ebola Virus Disease symptoms Patient denies exposure to infectious person. Patient denies travel to an Ebola-affected area in the 21 days before illness onset. No symptoms or risks identified at this time. Initial Sepsis Screen: Does the patient meet any 2 criteria? No. Patient's initial sepsis screen is negative. Does the patient have a suspected source of infection? No. Patient's initial sepsis screen is negative. Risk Assessment: Do you want to hurt yourself or someone else? Patient reports no desire to harm self or others. Onset of symptoms was June 07, 2020. 21:07 Method Of Arrival: Ambulatory ca1 21:07 Acuity: OMAIRA 5 ca1 [place] HAND: 21:10 LMP N/A - control method ca1 Historical: - Allergies: 21:10 No Known Allergies; ca1 - Home Meds: 21:10 Cyclobenzaprine Oral [Active]; ca1 - PMHx: 21:10 None; ca1 - PSHx: 21:10 D\T\C; ca1 - Immunization history:: Adult Immunizations not up to date, Last tetanus immunization: unknown. - Social history:: Smoking status: Patient reports the use of cigarette tobacco products, smokes one-half pack cigarettes per day. Screenin:46 Abuse screen: Denies threats or abuse. Denies injuries from another. Nutritional ca1 screening: No deficits noted. Tuberculosis screening: No symptoms or risk factors identified. Fall Risk None identified. Assessment: 21:46 General: Appears in no apparent distress. comfortable, Behavior is calm, cooperative, ca1 appropriate for age. Pain: Complains of pain in lower left lateral incisor, lower left central incisor, lower right central incisor and lower right lateral incisor Pain currently is 9 out of 10 on a pain scale. Neuro: Level of Consciousness is awake, alert, obeys commands, Oriented to person, place, time, situation, Appropriate for age. Derm: Skin is intact, is healthy with good turgor, Skin is pink, warm \T\ dry. Abscess located on mouth is dime sized, has purulent drainage, was lanced by patient prior to arrival. Musculoskeletal: Circulation, motion, and sensation intact. Capillary refill < 3 seconds. Vital Signs: 21:07 BP 96 / 57; Pulse 73; Resp 15 S; Temp 97.3(TE); Pulse Ox 100% on R/A; Weight 93.44 kg ca1 (R); Height 5 ft. 1 in. (154.94 cm) (R); Pain 7/10; 21:47 BP 110 / 69; Pulse 81; Resp 15 S; Pulse Ox 100% on R/A; ca1 21:07 Body Mass Index 38.92 (93.44 kg, 154.94 cm) ca1 ED Course: 20:22 Patient arrived in ED. cl3 21:09 Triage completed. ca1 21:10 Arm band placed on right wrist. ca1 21:45 Corby Chan PA is PHCP. jr8 21:45 Ramo Lemus MD is Attending Physician. jr8 21:46 Alecia Bishop, MIRIAM is Primary Nurse. ca1 21:46 Patient has correct armband on for positive identification. Call light in reach. Side ca1 rails up X 1. Pulse ox on. NIBP on. 21:46 No provider procedures requiring assistance completed. Patient did not have IV access ca1 during this emergency room visit. Administered Medications: 21:51 Drug: TORadol 30 mg Route: IM; Site: right gluteus; ca1 21:57 Follow up: Response: Medication administered at discharge. ca1 Outcome: 21:52 Discharge ordered by . jr8 21:57 Discharged to home ambulatory. ca1 21:57 Condition: stable 21:57 Discharge instructions given to patient, Instructed on discharge instructions, follow up and referral plans. medication usage, Demonstrated understanding of instructions, follow-up care, medications, Prescriptions given X 2. 21:57 Patient left the ED. ca1 Signatures: Corby Chan PA PA jr8 Acob, Cheryl RN RN ca1 Crystal Adamson cl3
--- NOTE | 2020-06-07 21:53 | EDPHYS ---
Physician Documentation [facility] Name: Nina Parrish Age: 24 yrs Sex: Female : 1995 Arrival Date: 06/07/2020 Time: 20:22 Bed 11 Private MD: ED Physician Ramo Lemus HPI: 06/07 21:49 This 24 yrs old Female presents to ER via Ambulatory with complaints of jr8 Abcess On Gums. 21:49 Onset: The symptoms/episode began/occurred gradually, 2 day(s) ago. Associated signs jr8 and symptoms: The patient has no apparent associated signs or symptoms. The patient has not experienced similar symptoms in the past. The patient has not recently seen a physician. 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 - Social history:: Smoking status: Patient reports the use of cigarette tobacco products, smokes one-half pack cigarettes per day. ROS: 21:49 Eyes: Negative for injury, pain, redness, and discharge, Neck: Negative for injury, jr8 pain, and swelling, Cardiovascular: Negative for chest pain, palpitations, and edema, Respiratory: Negative for shortness of breath, cough, wheezing, and pleuritic chest pain, Abdomen/GI: Negative for abdominal pain, nausea, vomiting, diarrhea, and constipation, Back: Negative for injury and pain, MS/Extremity: Negative for injury and deformity, Skin: Negative for injury, rash, and discoloration, Neuro: Negative for headache, weakness, numbness, tingling, and seizure. 21:49 ENT: Positive for dental pain, Gum pain Exam: 21:49 Constitutional: This is a well developed, well nourished patient who is awake, alert, jr8 and in no acute distress. ENT: Nares patent. No nasal discharge, no septal abnormalities noted. Tympanic membranes are normal and external auditory canals are clear. Oropharynx with no redness or evidence of obstruction, uvula midline. Mucous membranes moist. Right gum line by first incisor with small draining abscess. Gingival disease noted throughout mouth with poor dentition and cavities Cardiovascular: Regular rate and rhythm with a normal S1 and S2. No gallops, murmurs, or rubs. Normal PMI, no JVD. No pulse deficits. Respiratory: Lungs have equal breath sounds bilaterally, clear to auscultation and percussion. No rales, rhonchi or wheezes noted. No increased work of breathing, no retractions or nasal flaring. Skin: Warm, dry with normal turgor. Normal color with no rashes, no lesions, and no evidence of cellulitis. MS/ Extremity: Pulses equal, no cyanosis. Neurovascular intact. Full, normal range of motion. Neuro: Awake and alert, GCS 15, oriented to person, place, time, and situation. Cranial nerves II-XII grossly intact. Motor strength 5/5 in all extremities. Sensory grossly intact. Cerebellar exam normal. Normal gait. Vital Signs: 21:07 BP 96 / 57; Pulse 73; Resp 15 S; Temp 97.3(TE); Pulse Ox 100% on R/A; Weight 93.44 kg ca1 (R); Height 5 ft. 1 in. (154.94 cm) (R); Pain 7/10; 21:47 BP 110 / 69; Pulse 81; Resp 15 S; Pulse Ox 100% on R/A; ca1 21:07 Body Mass Index 38.92 (93.44 kg, 154.94 cm) ca1 MDM: 21:48 Patient medically screened. [facility] 21:49 Data reviewed: vital signs, nurses notes, and as a result, I will discharge patient. [facility] Data interpreted: Pulse oximetry: on room air is 100 %. Interpretation: normal. Counseling: I had a detailed discussion with the patient and/or guardian regarding: the historical points, exam findings, and any diagnostic results supporting the discharge/admit diagnosis, the need for outpatient follow up, a dentist, to return to the emergency department if symptoms worsen or persist or if there are any questions or concerns that arise at home. ED course: Was able to express gum abscess without lancing it. Will put on pain meds and Abx. If worse to come back. Otherwise needs to f/u with dentist . Administered Medications: 21:51 Drug: TORadol 30 mg Route: IM; Site: right gluteus; ca1 21:57 Follow up: Response: Medication administered at discharge. ca1 Disposition: 06/07/20 21:52 Discharged to Home. Impression: Dental Abscess . - Condition is Stable. - Discharge Instructions: Dental Abscess. - Prescriptions for Amoxicillin 875 mg Oral Tablet - take 1 tablet by ORAL route every 12 hours for 10 days; 20 tablet. Ibuprofen 800 mg Oral Tablet - take 1 tablet by ORAL route every 12 hours As needed take with food; 20 tablet. - Medication Reconciliation Form, Thank You Letter, Antibiotic Education, Prescription Opioid Use form. - Follow up: Private Physician; When: 5 - 6 days; Reason: Recheck today's complaints, Continuance of care, Re-evaluation by your physician. - Problem is new. - Symptoms have improved. Addendum: 06/13/2020 16:37 Co-signature as Attending Physician, Ramo Lemus MD I agree with the assessment and t w4 plan of care. Signatures: Corby Chan PA PA jr8 Ramo Lemus MD MD tw4 Alecia Bishop RN RN ca1 Corrections: (The following items were deleted from the chart) 06/07 21:57 21:52 06/07/2020 21:52 Discharged to Home. Impression: Dental Abscess . Condition is ca1 Stable. Forms are Medication Reconciliation Form, Thank You Letter, Antibiotic Education, Prescription Opioid Use. Follow up: Private Physician; When: 5 - 6 days; Reason: Recheck today's complaints, Continuance of care, Re-evaluation by your physician. Problem is new. Symptoms have improved. jr8
[2020-06-07] MEDS ORDERED: KETOROLAC 30 MG/ML INJ ONE (21:58)
[2020-06-07 22:57] VITALS: BP 96/57; TEMP 97.3; O2SAT 100
--- OUTSIDE RECORDS SUMMARY | 2020-06-08 02:37 | XMS REPORT | Continuity of Care Document ---
:1995 Author Organization [facility] t Address [address] [place] [address] Care Team Providers Name Role Phone GILLILAND Attending Clinician Unavailable Problems This patient has no known problems. Allergies, Adverse Reactions, Alerts This patient has no known allergies or adverse reactions. Medications This patient has no known medications. Procedures This patient has no known procedures. Results Test Description Test Time Test Comments Results Result Comments Source Culture, Urine 2017-05-08 10:14:00 Test Item Value Reference Range Interpretation Comme nts Culture, Urine (test code = URC) NF N Culture, Urine (test code = URC1) 25 MSF N Chemistry - [id number] 01:45:00 Test Item Value Reference Range Interpretation Comments Chemistry - Specials (test code 1.2111 uIU/mL 0.35-4.94 N = TSH3) [id number] 01:41:00 Test Item Value Reference Range Interpretation Comments Chemistry (test code = AMERICO) 28.0 U/L 25-125 N [id number] 01:41:00 Test Item Value Reference Range Interpretation Comments Chemistry (test code = LIP) 7 U/L 8-78 L [id number] 01:41:00 Test Item Value Reference Range Interpretation Comments Chemistry (test Less than 6.0-30.0 L Therapeutic Range: 10.0 - code = ACET-T) 6.0 mcg/mL 30.0 ug/mLTox ic Range: Possible tox icity: 150 - 200 ug/mL Probable toxicity: Grea ter than 200 ug/mL*IMPORTANT TESTING INFORMATION* T he half-life of NAC is 2 chepe rs. The total NAC clearanceis 5.6 hours for adults and 11 hours for Newborns. Test ing acetaminophen l evels prior to a reasonable timeframe for clearance c an cause falsely decreasedacetam inophen levels. Chemistry (test Less than Less than 10 The pharmaco logical response code = ETOH) 10 mg/dL to blood alcoho l levels mayvary from in dividual to individual. Negative: Less than 10 mg/dL Toxic: 50 - 10 0 mg/dL Depression o f SOIL ANALYST: Greater than 100 mg/dL Fatalities reported: Greater than 400 mg/dL Chemistry (test Less than 15.0-30.0 L code = SALCY) 8.0 mg/dL [id number] 01:32:00 Test Item Value Reference Range Interpretation Comments Hematology (test code = WBCT) 10.8 thou/uL 4.8-10.8 N Hematology (test code = RBCT) 4.69 mill/uL 4.20-5.40 N Hematology (test code = HGBT) 14.3 g/dL 12.0-16.0 N Hematology (test code = HCTT) 41.1 % 36.0-47.0 N Hematology (test code = MCV) 87.8 fl 81.0-99.0 N Hematology (test code = MCH) 30.5 pg 27.0-31.0 N Hematology (test code = MCHC) 34.8 g/dL 32.0-36.0 N Hematology (test code = RDW) 12.9 % 11.5-14.5 N Hematology (test code = PLTT) 270 thou/uL 130-400 N Hematology (test code = MPV) 10.3 fL 7.4-10.4 N Hematology (test code = %NEUT) 69.3 % 42.0-75.0 N Hematology (test code = %LYMPH) 22.9 % 21.0-51.0 N Hematology (test code = %MONO) 6.3 % 0.0-10.0 N Hematology (test code = %EOS) 0.6 % 0.0-10.0 N Hematology (test code = %BASO) 0.9 % 0.0-1.0 N Hematology (test code = NEUT#) 7.5 thou/uL 1.40-6.50 H Hematology (test code = LYMPH#) 2.5 thou/uL 1.20-3.40 N Hematology (test code = MONO#) 0.7 thou/uL 0.11-0.59 H Hematology (test code = EOS#) 0.1 thou/uL 0.0-0.7 N Hematology (test code = BASO#) 0.1 thou/uL 0.0-0.2 N Chemistry - [id number] 01:32:00 Test Item Value Reference Range Interpretation Comments Chemistry - Less than 1.20 See Ranges Males and Specials (test code mIU/mL Nonpregn ant females: = HCGQ) Less than 10 mIU/mLPregnancy , weeks of gestat ion mIU/mL 0. 2 - 1 week 5 - 50 1 - 2 weeks 50 - 500 2 - 3 weeks 1 00 - 5,000 3 - 4 we eks 500 - 10,000 4 - 5 weeks 1,000 - 5 0,000 5 - 6 weeks 10, 000 - 100,000 6 - 8 weeks 15,000 - 200,00 0 2 - 3 months 10,000 - 100,000 [id number] 01:24:00 Test Item Value Reference Range Interpretation Comments Chemistry (test 140 mmol/L 136-145 N code = NA-T) Chemistry (test 3.5 mmol/L 3.5-5.1 N code = K-T) Chemistry (test 108 mmol/L 98-107 H code = CL) Chemistry (test 20 mmol/L 22-29 L code = CO2) Chemistry (test 16 mmol/L 10-20 N code = ANGP) Chemistry (test 13 mg/dL 7.0-18.7 N code = BUN) Chemistry (test 0.74 mg/dL 0.6-1.1 N code = CREATT) Chemistry (test Greater than 90 Referenc e Range for code = EGFRMDRD) Estimated G FR: Gre ater than 90 mL/min/ 1.73 m2NOTE:The MDRD equation has no t been validated for use with theeld erly (over 70 years of age), women, patients with serious comorbi d condition or pe rsons with extremes o fbody size, muscle ma ss, or nutritional status. Chemistry (test 113 mg/dL 70-105 H code = GLU-T) Chemistry (test 9.8 mg/dL 7.8-10.44 N code = CA) Chemistry (test 0.7 mg/dL 0.2-1.2 N code = TBILI) Chemistry (test 7.3 g/dL 6.0-8.3 N code = TP) Chemistry (test 4.5 g/dL 3.5-5.0 N code = ALB) Chemistry (test 2.8 g/dL 2.4-3.5 N code = GLOB) Chemistry (test 1.6 g/dL 1.2-2.2 N code = AG) Chemistry (test 83 U/L 40-150 N code = ALP) Chemistry (test 14 U/L 5-34 N code = AST) Chemistry (test 14 U/L 8-55 N code = ALT) [id number] 01:20:00 Test Item Value Reference Range Interpretation Comments Urinalysis (test Dark Yellow Yellow code = UACLR) Urinalysis (test Slightly Cloudy Clear code = UACLY) Urinalysis (test 1.031 1.002-1.036 N code = SPGR) Urinalysis (test 6.0 5.0-9.0 N code = CARMEN) Urinalysis (test Negative Negative code = UALEU) Urinalysis (test Negative Negative code = UANIT) Urinalysis (test > or equal to Neg-Trace A code = PROUADIP) 300 mg/dL Urinalysis (test Negative mg/dL Negative code = GLUCU) Urinalysis (test Negative mg/dL Negative code = KETU) Urinalysis (test 2.0 mg/dL 0.2-1.0 A code = UAUROB) Urinalysis (test Small Negative A code = UABIL) CAUTION *Urine Bilirubin has a high incidence of fa lse positiveresults due to urine color interference.In terpret results in conj unction with other clinicalfinding s. Urinalysis (test Trace Negative A code = UABLD) Urinalysis (test 4-6 HPF 0-3 code = UARBC) Urinalysis (test 11-20 HPF 0-3 A code = UAWBC) Urinalysis (test 11-20 HPF 0-3 A code = UASQUAM) Urinalysis (test 0-3 HPF 0-3 code = UATRANS) Urinalysis (test 0-3 HPF 0-3 code = UARENAL) Urinalysis (test 1+ HPF None Seen A code = UABAC) Urinalysis (test Rare HPF None Seen code = UAYEAST) Urinalysis (test RARE AMORPH Negative code = UACRST) URATES HPF Urine Source: Urine [id number] 01:18:00 Test Item Value Reference Range Interpretation Comments Toxicology (test Detected NotDetected A code = ASCENCION) Toxicology (test Not Detected NotDetected code = PCP) Toxicology (test Not Detected NotDetected code = COCN) Toxicology (test Detected NotDetected A code = METHAMPU) Toxicology (test Not Detected NotDetected code = OPIA) Toxicology (test Detected NotDetected A code = AMPHU) Toxicology (test Not Detected NotDetected code = LIBIA) Toxicology (test Not Detected NotDetected code = TRICY) Toxicology (test Not Detected NotDetected code = MTD) Toxicology (test Not Detected NotDetected code = CATALINA) Toxicology (test Not Detected NotDetected code = OXYCOD) Toxicology (test Not Detected NotDetected code = PPX) Toxicology (test The MedT ox Profile-V code = MTCUTOFF) Panel for Q ualitative Drugs ofAbuse a ssays are for presump tive screening testi ng only.The drug c lass and detection l imits are as follows: Drug Class Detection LimitAmphetamin e 500 ng/mL*Barbitura lashonda 200 ng/mLBenzodiaze pines 150 ng/mL*Cocaine 150 ng/mL*Methamphe tamine 500 ng/mL*Methadone 200 ng/mL*Opiates 100 ng/mL*Oxycodone 100 n g/mLPCP 25 ng/mLPropox yphene 30 0 ng/mLTricyclic Antidepressants 300 ng/mLCannabinoi ds (THC) 50 ng/mLTests whic h yield a presumptive p ositive result must bet ested using a more sp ecific alternate chemi sandy method inorder to obtain a confir med analytical resu lt. Additionalconfi rmation and identificat ion may be ordered on a routinebasis, i f desired. Presu mptive positive urines are held fortwo malachi delgado. Urine Source: Urine Voided
== END 2020-06-07 21:57 | disposition home or self-care (01) ==
LOC: ER 20:20
DX: K04.7 Periapical abscess without sinus (principal); F17.210 Nicotine dependence, cigarettes, uncomplicated
CPT/HCPCS: 96372; 99283

== ENCOUNTER 2021-05-29 15:33 | Emergency (ER) | payer SELFPAY ==
--- OUTSIDE RECORDS SUMMARY | 2021-05-29 15:35 | XMS REPORT | Continuity of Care Document ---
:1995 Author Organization [facility] t Address [address] [place] [address] Care Team Providers Name Role Phone GILLILAND [...] = URC1) 25 MSF N Chemistry - [id number] 01:45:00 Test Item Value Reference Range Interpretation Comments Chemistry - Specials (test code 1.2111 uIU/mL 0.35-4.94 N = TSH3) [id number] 01:41:00 Test Item Value Reference Range Interpretation [...] - 10 0 mg/dL Depression o f POLE FRAMER: Greater than 100 mg/dL Fatalities reported: Greater than 400 mg/dL Chemistry (test Less than 15.0-30.0 L code = SALCY) 8.0 mg/dL [id number] 01:41:00 Test Item Value Reference Range Interpretation Comments Chemistry (test code = AMERICO) 28.0 U/L 25-125 N [id number] 01:41:00 Test Item Value Reference Range Interpretation Comments Chemistry (test code = LIP) 7 U/L 8-78 L [id number] 01:32:00 Test Item Value Reference Range Interpretation [...] BASO#) 0.1 thou/uL 0.0-0.2 N Chemistry - [id number] 01:32:00 Test Item Value Reference Range Interpretation [...] 2 - 3 months 10,000 - 100,000 [id number] 01:24:00 Test Item Value Reference Range Interpretation [...] 14 U/L 8-55 N code = ALT) [id number] 01:20:00 Test Item Value Reference Range Interpretation [...] = UACRST) URATES HPF Urine Source: Urine [id number] 01:18:00 Test Item Value Reference Range Interpretation [...] desired. Presu mptive positive urines are held [facility]. Urine Source: Urine Voided
--- NOTE | 2021-05-29 17:25 | ER ---
Nurse's Notes [facility] Name: Nina Parrish Age: 25 yrs Sex: Female : 1995 Arrival Date: 05/29/2021 Time: 15:35 Bed Waiting Private MD: Diagnosis: Presentation: 05/29 15:39 Chief complaint: Patient states: "I have this spot on my right leg upper thigh where it jd3 looks like there are popped blood vessels and it it hurting. I am also maybe about 2 months .". Coronavirus screen: At this time, the client does not indicate any symptoms associated with coronavirus-19. Ebola Screen: Patient negative for fever greater than or equal to 101.5 degrees Fahrenheit, and additional compatible Ebola Virus Disease symptoms. Initial Sepsis Screen: Does the patient meet any 2 criteria? No. Patient's initial sepsis screen is negative. Does the patient have a suspected source of infection? No. Patient's initial sepsis screen is negative. Risk Assessment: Do you want to hurt yourself or someone else? Patient reports no desire to harm self or others. Onset of symptoms was May 29, 2021. 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 - Social history:: Smoking status: Patient reports the use of cigarette tobacco products, denies chronic smoking, but will smoke occasionally. Vital Signs: 15:42 BP 116 / 89; Pulse 96; Resp 17 S; Temp 98.2(TE); Pulse Ox 100% on R/A; Weight 86.18 kg jd3 (R); Height 5 ft. 1 in. (154.94 cm) (R); Pain 3/10; 15:42 Body Mass Index 35.90 (86.18 kg, 154.94 cm) jd3 ED Course: 15:35 Patient arrived in ED. ds1 15:41 Triage completed. jd3 15:43 Arm band placed on. jd3 17:02 Karie Little, RN is Primary Nurse. sv 17:04 Patient's name was called from ER [place]. No response. jd3 17:24 Patient's name was called from ER [place]. No response. jd3 Administered Medications: No medications were administered Outcome: 17:24 Patient left the ED. jd3 Signatures: Karie Little, RN Milla Flores ds1 German Santana RN RN jstan
[2021-05-29 18:28] VITALS: BP 116/89; TEMP 98.2; O2SAT 100
== END 2021-05-29 17:24 | disposition left against medical advice (07) ==
LOC: ER 15:33
DX: Z02.9 Encounter for administrative examinations, unspecified (principal)
CPT/HCPCS: 99281

== ENCOUNTER 2024-09-09 18:11 | Emergency (ER) | payer OTHER, SELFPAY ==
--- OUTSIDE RECORDS SUMMARY | 2024-09-09 18:14 | XMS REPORT | Continuity of Care Document ---
Author Name Unknown Address [address] [facility] [address] [place] [address] [facility] Address [address] [facility] [address] [place] [address] Care Team Providers Care Dural Mechanic Name Role Phone Butch Vo Attending Clinician Unavailable Amy Handy Attending Clinician Unavaila Rdaha Harrell Attending Clinician Unavailab Zo Wadsworth Attending Clinician Unavailable Will Lopez Attending Clinician Unavailab Ena Luna Attending Clinician Unavailable Amy Brand Attending Clinician Unavailable Timi Bolivar Attending Clinician Unavailable Venita Attending Clinician Unavailable Johann Steel Attending Clinician Unavailable Butch Ribeiro Attending Clinician Unavailable Bhupinder Campos Attending Clinician Unavailable Rakan Rodriguez Attending Clinician Unavailable Sunday Berkowitz Attending Clinician Unavailable Ke Damico Attending Clinician Unavailable JASE GILLILAND Attending Clinician Unavailable Sean Gary Attending Clinician Unavailable Demarco Temple Attending Clinician Unavailable Ricardo Benz Attending Clinician Unakacie ellsworthle Audrey_OrmbergMD Admitting Clinician Unavailable Rakan Rodriguez Admitting Clinician Unavailable Demarco Temple Admitting Clinician Unavailable Payers Payer Name Policy Type Policy Number Effective Date Expirati on Date Source [employer] [facility] (MEDICAID HMO) [id number] 2022 00:00:00 2022 00:00:00 Allergies, Adverse Reactions, Alerts Allergy Name Allergy Type Status Severity Reaction(s) Onset Date Inactive Date Treating Clinician Comments Source No Known Allergie s DA Active U 12-04 00:00: 00 [facility] No Known Allergie s DA Active U 2020-12 00:00: 00 [facility] No Known Allergie s DA Active U 02-21 00:00: 00 [facility] Vital Signs Vital Name Observation Time Observation Value Comments S ource WEIGHT 2021-12-04 20:52:00 98.413461 kg HEIGHT 2021-12-04 20:52:00 154.94 cm Body Mass Index (BMI) 2021-11-09 13:40:38 40.0 Height 2021-11-09 13:40:38 61 Weight 2021-11-09 13:40:38 3392 Pre- Weight 2021-11-09 13:40:38 2160 Hx Suicide Attempt 2021-11-09 13:40:38 N Largest Baby Weight: 2021-11-09 13:40:38 8#4 OZ Hx Suicide Attempt 2021-11-09 13:40:36 N Largest Baby Weight: 2021-11-09 13:40:36 8#4 OZ Body Mass Index (BMI) 2021-11-09 13:40:36 40.0 Height 2021-11-09 13:40:36 61 Weight 2021-11-09 13:40:36 3392 Pre- Weight 2021-11-09 13:40:36 2160 Hx Suicide Attempt 2021-11-06 11:48:16 N Largest Baby Weight: 2021-11-06 11:48:16 8#4 OZ Body Mass Index (BMI) 2021-11-06 11:48:16 40.0 Height 2021-11-06 11:48:16 61 Weight 2021-11-06 11:48:16 3392 Pre- Weight 2021-11-06 11:48:16 2160 Hx Suicide Attempt 2021-10-29 22:32:14 N Largest Baby Weight: 2021-10-29 22:32:14 8#4 OZ Body Mass Index (BMI) 2021-10-29 22:32:14 40.0 Height 2021-10-29 22:32:14 61 Weight 2021-10-29 22:32:14 3392 Pre- Weight 2021-10-29 22:32:14 2160 Hx Suicide Attempt 2021-10-29 20:37:32 N Largest Baby Weight: 2021-10-29 20:37:32 8#4 OZ Body Mass Index (BMI) 2021-10-29 20:37:32 40.0 Height 2021-10-29 20:37:32 61 Weight 2021-10-29 20:37:32 3392 Pre- Weight 2021-10-29 20:37:32 2160 Hx Suicide Attempt 2021-10-29 20:35:28 N Largest Baby Weight: 2021-10-29 20:35:28 8#4 OZ Pre- Weight 2021-10-29 20:35:28 2160 WEIGHT 2021-10-29 20:35:00 96.588605 kg HEIGHT 2021-10-29 20:35:00 154.94 cm Hx Suicide Attempt 2021-10-29 20:10:56 N Largest Baby Weight: 2021-10-29 20:10:56 8#4 OZ Pre- Weight 2021-10-29 20:10:56 2160 Hx Suicide Attempt 2021-11-09 13:40:36 N Largest Baby Weight: 2021-11-09 13:40:36 8#4 OZ Pre- Weight 2021-11-09 13:40:36 2160 Hx Suicide Attempt 2021-11-06 11:48:16 N Largest Baby Weight: 2021-11-06 11:48:16 8#4 OZ Pre- Weight 2021-11-06 11:48:16 2160 Hx Suicide Attempt 2021-11-06 11:47:44 N Largest Baby Weight: 2021-11-06 11:47:44 8#4 OZ Pre- Weight 2021-11-06 11:47:44 2160 Hx Suicide Attempt 2021-11-06 11:47:14 N Largest Baby Weight: 2021-11-06 11:47:14 8#4 OZ Pre- Weight 2021-11-06 11:47:14 2160 Largest Baby Weight: 2021-10-17 07:37:42 8#4 OZ Pre- Weight 2021-10-17 07:37:42 2160 Hx Suicide Attempt 2021-10-17 07:37:42 N Hx Suicide Attempt 2021-10-17 07:37:39 N Largest Baby Weight: 2021-10-17 07:37:39 8#4 OZ Pre- Weight 2021-10-17 07:37:39 2160 Hx Suicide Attempt 2021-10-08 05:28:14 N Largest Baby Weight: 2021-10-08 05:28:14 8#4 OZ Pre- Weight 2021-10-08 05:28:14 2160 Hx Suicide Attempt 2021-10-08 05:27:07 N Largest Baby Weight: 2021-10-08 05:27:07 8#4 OZ Pre- Weight 2021-10-08 05:27:07 2160 Hx Suicide Attempt 2021-10-08 05:25:04 N Largest Baby Weight: 2021-10-08 05:25:04 8#4 OZ Pre- Weight 2021-10-08 05:25:04 2160 Hx Suicide Attempt 2021-10-08 05:25:03 N Largest Baby Weight: 2021-10-08 05:25:03 8#4 OZ Pre- Weight 2021-10-08 05:25:03 2160 Hx Suicide Attempt 2021-11-09 13:40:36 N Largest Baby Weight: 2021-11-09 13:40:36 8#4 OZ Pre- Weight 2021-11-09 13:40:36 2160 Hx Suicide Attempt 2021-11-06 11:48:16 N Largest Baby Weight: 2021-11-06 11:48:16 8#4 OZ Pre- Weight 2021-11-06 11:48:16 2160 Hx Suicide Attempt 2021-10-17 07:37:42 N Largest Baby Weight: 2021-10-17 07:37:42 8#4 OZ Pre- Weight 2021-10-17 07:37:42 2160 Hx Suicide Attempt 2021-10-08 05:25:04 N Largest Baby Weight: 2021-10-08 05:25:04 8#4 OZ Pre- Weight 2021-10-08 05:25:04 2160 Hx Suicide Attempt 2021-10-08 01:31:37 N Largest Baby Weight: 2021-10-08 01:31:37 8#4 OZ Pre- Weight 2021-10-08 01:31:37 2160 Pre- Weight 2021-10-08 01:29:10 2160 Hx Suicide Attempt 2021-10-08 01:29:10 N Largest Baby Weight: 2021-10-08 01:29:10 8#4 OZ Hx Suicide Attempt 2021-10-08 01:22:52 N Largest Baby Weight: 2021-10-08 01:22:52 8#4 OZ Pre- Weight 2021-10-08 01:22:52 2160 WEIGHT 2016-11-13 02:19:00 80.976151 kg HEIGHT 2016-11-13 02:19:00 154.94 cm WEIGHT 2014-05-21 14:26:00 84.580118 kg HEIGHT 2014-05-21 14:26:00 162.56 cm Encounters Start Date/Time End Date/Time Encounter Type Admission Type Attending [facility] Care Department Encounter ID Source 2024-07-19 17:06:00 Outpatient Butch Vo [facility] [id number] [facility] 2024-07-13 17:18:00 Outpatient Amy Handy [facility] HP[facility] [id number] [facility] 2024-03-25 10:40:01 Outpatient Amy Brand [facility] HP[facility] [id number] [facility] 2024-02-19 09:28:00 Outpatient Amy Brand [facility] HP[facility] [id number] [facility] 2024-01-24 11:05:01 Outpatient Amy Brand HP[facility] HP[facility] [id number] [facility] 2024-01-22 10:11:00 Outpatient Amy Brand HPNT HPNT [id number] [facility] 2023-12-17 15:21:00 Outpatient Amy Brand [facility] HP[facility] [id number] [facility] 2023-09-11 08:30:00 Outpatient Butch Vo HPNT HPNT [id number] [facility] 2023-08-21 13:25:00 Outpatient Butch Vo HPNT HP[facility] [id number] [facility] 2023-06-29 15:58:00 Outpatient Radha Clemente HPNT HPNT [id number] [facility] 2023-06-10 15:07:00 Outpatient Butch Vo HPNT HPNT [id number] [facility] 2023-03-14 13:03:05 Outpatient Butch Vo HPNT HPNT [id number] [facility] 2023-03-06 14:22:00 Outpatient Butch Vo HPNT HPNT [id number] [facility] 2023-01-30 09:31:01 Outpatient HPNT HPNT [id number] [facility] 2023-01-29 11:30:01 Outpatient HPNT HPNT [id number] [facility] 2022-09-24 09:15:03 Outpatient HPNT HPNT [id number] [facility] 2022-08-13 14:55:02 Outpatient HPNT HPNT [id number] [facility] 2022-08-01 17:43:00 Outpatient HPNT HPNT [id number] [facility] 2022-05-18 10:26:00 Outpatient HPNT HPNT [id number] [facility] 2022-02-12 11:09:02 Outpatient HPNT HPNT [id number] [facility] 2021-12-27 14:12:22 Outpatient HPNT HPNT [id number] [facility] 2021-12-27 14:05:30 Outpatient HPNT HPNT [id number] [facility] 2024-05-02 10:24:00 2024-05-02 11:57:00 Emergency ER Lester, Zo STLSJM STLS [id number] [facility] 2023-12-16 18:00:00 2023-12-16 22:49:00 Emergency ER Will Lopez STLSJM STLS [id number] [facility] 2023-10-08 12:26:00 2023-10-08 15:35:00 Emergency ER Ena Duarte STLSJM STLS [id number] [facility] 2023-05-14 23:06:00 2023-05-14 23:55:00 Emergency ER Zo Batista STLS STLS [id number] [facility] 2023-03-19 22:41:00 2023-03-19 23:35:00 Emergency ER Ena Duarte [facility] [id number] [facility] 2023-03-01 22:36:00 2023-03-01 23:45:00 Emergency ER Zo Batista STLSJ [facility] [id number] [facility] 2023-02-25 22:34:00 2023-02-26 02:11:00 Emergency ER Zo Batista STLS [facility] [id number] [facility] 2023-02-19 08:51:00 2023-02-19 08:52:00 Outpatient Amy Daily [facility]LSJX ST[facility]JX [id number] [facility] 2023-02-12 00:00:00 2023-02-12 00:00:00 Outpatient mAy Brand STLSJX STLSJX [id number] [facility] 2022-12-03 16:37:00 2022-12-03 18:38:00 Emergency ER Timi Bolivar STLSM STLS [id number] [facility] 2022-11-14 14:47:00 2022-11-14 15:53:00 Emergency ER Zo Batista STLSJM STLS [id number] [facility] 2022-07-24 13:36:00 2022-07-24 14:06:00 Emergency ER Lester, Zo STLSJM STLS [id number] [facility] 2022-05-28 11:36:00 2022-05-28 11:36:00 Outpatient Audrey[facility]Ormb ergMD [facility] [id number] 2022-05-21 16:23:00 2022-05-21 17:30:00 Emergency ER Johann Steel STLSJM [facility] [id number] [facility] 2022-05-18 18:05:00 2022-05-18 19:05:00 Emergency ER Butch Ribeiro STLSJ [facility] [id number] [facility] 2022-04-10 19:00:00 2022-04-10 19:59:00 Emergency ER Zo Batista STLSJ [facility] [id number] [facility] 2022-03-30 21:54:00 2022-03-30 22:35:00 Emergency ER Bhupinder Campos STLSJ STLS [id number] [facility] 2022-03-27 08:15:00 2022-03-27 09:31:00 Emergency ER Zo Batista STLSJM STLS [id number] [facility] 2022-03-11 00:29:00 2022-03-11 01:21:00 Emergency ER Johann Steel STLSJM STLS [id number] [facility] 2021-12-04 20:12:00 2021-12-06 19:55:00 Inpatient Rakan Sue STLSJX OB [id number] [facility] 2021-11-30 10:10:00 2021-11-30 10:11:00 Outpatient Rakan Melvin STLSJX STJX [id number] [facility] 2021-10-29 20:08:00 2021-10-29 22:31:00 Outpatient Rakan Sue STJX STJX [id number] [facility] 2021-10-04 10:05:00 2021-10-04 16:20:00 Outpatient Rakan Sue STLSJX STJX [id number] [facility] 2021-09-20 09:21:00 2021-09-20 09:22:00 [facility] [id number] [facility] 2021-08-22 14:53:00 2021-08-22 14:54:00 Outpatient Lizzie BrandGanesh eugeney STJX STJX [id number] [facility] 2021-08-22 14:00:00 2021-08-22 14:00:00 [facility] [id number] [facility] 2021-07-16 09:48:00 2021-07-16 09:48:00 Emergency ER [facility] [id number] [facility] 2020-08-03 02:29:00 2020-08-03 02:29:00 Emergency ER Ke Damico [facility] [id number] [facility] 2017-05-05 23:33:00 2017-05-06 04:29:00 Emergency ER Jase Gilliland [facility] [id number] [facility] 2016-11-13 01:44:00 2016-11-13 08:15:00 Outpatient ER Rakan Rodriguez [facility] [id number] [facility] 2016-09-27 23:06:00 2016-09-27 23:56:00 Emergency ER Jase Gilliland [facility] [id number] [facility] 2016-09-04 10:41:00 2016-09-04 10:42:00 Outpatient R Rakan Rodriguez [facility] [id number] [facility] 2016-08-22 11:13:00 2016-08-22 12:06:00 Emergency ER Sean Gary [facility] [id number] [facility] 2016-07-06 19:55:00 2016-07-06 22:03:00 Emergency ER Jase Gilliland [facility] [id number] [facility] 2014-05-21 15:28:00 2014-05-24 15:40:00 Inpatient Demarco Young [facility] OB [id number] [facility] 2014-05-07 15:21:00 2014-05-07 15:22:00 Outpatient Lizzie Benz Ricardo [facility] [id number] [facility] Results Test Description Test Time Test Comments Results Result Co mments Source Vaginitis Panel 3 by DNA [id number] 15:57:00* Test Item Value Reference Range Interpretation Comme nts Vaginitis Panel 3 by DNA Pro be (test code = VP3) VPIIICANDI Vaginitis Panel 3 by DNA Pro be (test code = VP31) N A Vaginitis Panel 3 by DNA Pro be (test code = VP31) VPIIITRICH A [id number] 11:40:00* Test Item Value Reference Range Interpretation Comme nts Hematology (test code = WETTRICH) Trichomonas Absent None Seen Hematology (test code = WETCLUE) Clue Cells Absent None Seen Hematology (test code = WETYEAST) BudYeas/Hyph Absent None Seen Hematology (test code = WETSPERM) Spermatozoa Absent None Seen Hematology (test code = WETSOURCE) Vaginal Hematology (test code = WETSEX) No Wet Prep Sources: VaginalSexual Assault Suspected? [id number] 11:18:00* Test Item Value Reference Range Interpretation Comme nts Urinalysis (test code = UACLR) Yellow Yellow Urinalysis (test code = UACLY) Hazy Clear Urinalysis (test code = SPGR) 1.042 1.002-1.036 H Urinalysis (test code = CARMEN) 5.5 5.0-9.0 N Urinalysis (test code = UALEU) Negative Negative Urinalysis (test code = UANIT) Negative Negative Urinalysis (test code = PROUADIP) Negative mg/dL Neg-Trace Urinalysis (test code = GLUCU) >=1000 mg/dL Negative A Urinalysis (test code = KETU) Negative mg/dL Negative Urinalysis (test code = UAUROB) 0.2 mg/dL Less than 2 Urinalysis (test code = UABIL) Negative Negative Urinalysis (test code = UABLD) Trace Negative A Urinalysis (test code = UARBC) 0-3 HPF 0-3 Urinalysis (test code = UAWBC) 0-3 HPF 0-3 Urinalysis (test code = UASQUAM) 11-20 HPF 0-3 A Urinalysis (test code = UABAC) Rare-Few HPF None Seen Urinalysis (test code = UAMCS) 2+ LPF See_Comment A [Automated messa ge] The system which generated this result transmitted reference range: <2+. The reference range was not used to interpret this result as normal/abnormal. Indications to order a Urinalysis: Pelvic or flank painUrine Source: Urine Clean [id number] 11:18:00* Test Item Value Reference Range Interpretation Comme nts Urinalysis (test code = UACRFLXNO) No Indications to order a Urinalysis: Pelvic or flank painUrine Source: Urine Clean [id number] 11:11:00* Test Item Value Reference Range Interpretation Comme [facility] Urinalysis (test code = BHCGUT) Negative Negative Method of sensit ivity- INDETERMINANT: results should be repeated after 48-72 hrs POSITIVE: results may be detected as early as 1 day after the first missed period A dilute urine specimen may not contain representativelevels of hCG.If is still suspected, a first morning urinespecimen OR a random blood specimen should be obtainedfrom the patient 48-72 hours later and re-tested. Urinalysis (test code = PREGUSG) 1.042 1.002-1.036 H [id number] 19:58:00* Test Item Value Reference Range Interpretation Comme [facility] Chemistry (test code = NA-T) 141 mmol/L 136-145 N Chemistry (test code = K-T) 4.2 mmol/L 3.5-5.1 N Chemistry (test code = CL-T) 108 mmol/L 98-107 H Chemistry (test code = CO2-T) 23 mmol/L 22-29 N Chemistry (test code = ANGP) 14 mmol/L 10-20 N Chemistry (test code = BUN) 10 mg/dL 7.0-18.7 N Chemistry (test code = CREATT) 0.67 mg/dL 0.6-1.1 N Chemistry (test code = EGFRCR) 121 Reference Range for Estimated GFR: Greater than 90 mL/min/1.73 p5Ryxfesqr eGFR is based on the CKD-EPI 2020 equation thatdoes not use a race coefficient. Chemistry (test code = GLU-T) 151 mg/dL 70-105 H Chemistry (test code = CA-T) 9.8 mg/dL 7.8-10.44 N Chemistry (test code = TBILI-T) Less than 0.2 mg/dL 0.2-1.2 L Chemistry (test code = TP) 7.1 g/dL 6.0-8.3 N Chemistry (test code = ALB) 4.0 g/dL 3.5-5.0 N Chemistry (test code = GLOB) 3.1 g/dL 2.4-3.5 N Chemistry (test code = AG) 1.3 g/dL 1.2-2.2 N Chemistry (test code = ALP) 73 U/L 40-110 N Chemistry (test code = AST) 17 U/L 5-34 N Chemistry (test code = ALT) 23 U/L 8-55 N [id number] 19:38:00* Test Item Value Reference Range Interpretation Comme nts Hematology (test code = WBCT) 8.1 10x3/uL 4.8-10.8 N Hematology (test code = RBCT) 4.71 mill/uL 4.20-5.40 N Hematology (test code = HGBT) 13.4 g/dL 12.0-16.0 N Hematology (test code = HCTT) 42.5 % 36.0-47.0 N Hematology (test code = MCV) 90.2 fl 78.0-98.0 N Hematology (test code = MCH) 28.5 pg 27.0-31.0 N Hematology (test code = MCHC) 31.6 g/dL 32.0-36.0 L Hematology (test code = RDW) 13.4 % 11.5-14.5 N Hematology (test code = PLTT) 291 10x3/uL 130-400 N Hematology (test code = MPV) 10.4 fL 7.4-10.4 N Hematology (test code = %NEUT) 60.7 % 42.0-75.0 N Hematology (test code = %LYMPH) 27.7 % 21.0-51.0 N Hematology (test code = %MONO) 7.1 % 0.0-10.0 N Hematology (test code = %EOS) 3.3 % 0.0-10.0 N Hematology (test code = %BASO) 1.3 % 0.0-1.0 H Hematology (test code = NEUT#) 4.9 thou/uL 1.40-6.50 N Hematology (test code = LYMPH#) 2.3 thou/uL 1.20-3.40 N Hematology (test code = MONO#) 0.6 thou/uL 0.11-0.59 H Hematology (test code = EOS#) 0.3 thou/uL 0.0-0.7 N Hematology (test code = BASO#) 0.1 thou/uL 0.0-0.2 N [id number] 19:20:00* Test Item Value Reference Range Interpretation Comme nts Urinalysis (test code = UACLR) Yellow Yellow Urinalysis (test code = UACLY) Hazy Clear Urinalysis (test code = SPGR) 1.026 1.005-1.030 N Urinalysis (test code = CARMEN) 5.5 5.0-9.0 N Urinalysis (test code = UALEU) Negative Negative Urinalysis (test code = UANIT) Negative Negative Urinalysis (test code = PROUADIP) Negative mg/dL Neg-Trace Urinalysis (test code = GLUCU) Negative mg/dL Negative Urinalysis (test code = KETU) Negative mg/dL Negative Urinalysis (test code = UAUROB) 0.2 mg/dL Less than 2 Urinalysis (test code = UABIL) Negative Negative Urinalysis (test code = UABLD) Negative Negative Urinalysis (test code = UARBC) None Seen HPF 0-3 Urinalysis (test code = UAWBC) 4-6 HPF 0-3 Urinalysis (test code = UASQUAM) 21-50 HPF 0-3 A Urinalysis (test code = UABAC) 1+ HPF None Seen A HIndications to order a Urinalysis: Pelvic or flank painUrine Source: Urine [id number] 19:20:00* Test Item Value Reference Range Interpretation Comme nts Urinalysis (test code = BHCGUT) Negative Negative Method of sensit ivity- INDETERMINANT: results should be repeated after 48-72 hrs POSITIVE: results may be detected as early as 1 day after the first missed period A dilute urine specimen may not contain representativelevels of hCG.If is still suspected, a first morning urinespecimen OR a random blood specimen should be obtainedfrom the patient 48-72 hours later and re-tested. Urinalysis (test code = PREGUSG) 1.026 1.002-1.036 N [id number] 19:20:00* Test Item Value Reference Range Interpretation Comme nts Urinalysis (test code = UACRFLXNO) No HIndications to order a Urinalysis: Pelvic or flank painUrine Source: Urine [id number] 14:41:00* Test Item Value Reference Range Interpretation Comme nts Coagulation (test code = DDIMTT) 0.38 *mcg/mL 0.27-0.43 N * Reference Rang e Units: mcg/mL of fibrinogen equivalent units(FEU)Based upon a retrospective study of [facility] patients in April 2006, a result of"Less than 0.44 mcg/mL FEU" is predictive of the absence ofa DVT or PE. [id number] 14:28:00* Test Item Value Reference Range Interpretation Comme nts Chemistry (test code = CRP) 0.59 mg/dL See_Comment H [Automated [place] ge] The system which generated this result transmitted reference range: = or < 0.5. The reference range was not used to interpret this result as normal/abnormal. SWhat test does the doctor want? C-REACTIVE PROTEIN (CRP)[id number] 13:58:00* Test Item Value Reference Range Interpretation Comme nts Urinalysis (test code = UACLR) Yellow Yellow Urinalysis (test code = UACLY) Clear Clear Urinalysis (test code = SPGR) 1.020 1.005-1.030 N Urinalysis (test code = CARMEN) 7.5 5.0-9.0 N Urinalysis (test code = UALEU) Negative Negative Urinalysis (test code = UANIT) Negative Negative Urinalysis (test code = PROUADIP) Negative mg/dL Neg-Trace Urinalysis (test code = GLUCU) Negative mg/dL Negative Urinalysis (test code = KETU) Negative mg/dL Negative Urinalysis (test code = UAUROB) 0.2 mg/dL Less than 2 Urinalysis (test code = UABIL) Negative Negative Urinalysis (test code = UABLD) Negative Negative Urinalysis (test code = UARBC) 0-3 HPF 0-3 Urinalysis (test code = UAWBC) 0-3 HPF 0-3 Urinalysis (test code = UASQUAM) 4-6 HPF 0-3 Urinalysis (test code = UABAC) Rare-Few HPF None Seen HIndications to order a Urinalysis: Pelvic or flank painUrine Source: Urine Clean [id number] 13:58:00* Test Item Value Reference Range Interpretation Comme nts Urinalysis (test code = UACRFLXNO) No HIndications to order a Urinalysis: Pelvic or flank painUrine Source: Urine Clean [id number] 13:52:00* Test Item Value Reference Range Interpretation Comme nts Urinalysis (test code = BHCGUT) Negative Negative Method of sensit ivity- INDETERMINANT: results should be repeated after 48-72 hrs POSITIVE: results may be detected as early as 1 day after the first missed period A dilute urine specimen may not contain representativelevels of hCG.If is still suspected, a first morning urinespecimen OR a random blood specimen should be obtainedfrom the patient 48-72 hours later and re-tested. Urinalysis (test code = PREGUSG) 1.020 1.002-1.036 N HCulture, Strep Group A [id number] 16:47:00* Test Item Value Reference Range Interpretation Comme nts Culture, Strep Group A Rflx (test code = STRPACULT) STRPCULT Culture, Strep Group A Rflx (test code = STRPACULT1) N Strep Group A [id number] 23:49:00* Test Item Value Reference Range Interpretation Comme nts Strep Group A Screen (test c ode = STRP) STRPANEG1 Strep Group A Screen (test c ode = STRP1) N Strep Group A Screen (test c ode = STRP1) STRPTH TONS HChemistry - [id number] 23:21:00* Test Item Value Reference Range Interpretation Comme nts Chemistry - Specials (test code = BHCGST) Negative NEGATIVE Method of s ensitivity- Indeterminant: results should be repeated after 48-72 hrs Positive: results may be detected as early as 1 day after the first missed menses. [id number] 23:01:00* Test Item Value Reference Range Interpretation Comme nts Hematology (test code = HGBT) 12.5 g/dL 12.0-16.0 N Hematology (test code = HCTT) 39.4 % 36.0-47.0 N [id number] 12:05:00* Test Item Value Reference Range Interpretation Comme nts Hematology (test code = WBCT) 11.2 10x3/uL 4.8-10.8 H Hematology (test code = RBCT) 4.61 mill/uL 4.20-5.40 N Hematology (test code = HGBT) 13.0 g/dL 12.0-16.0 N Hematology (test code = HCTT) 40.1 % 36.0-47.0 N Hematology (test code = MCV) 87.0 fl 78.0-98.0 N Hematology (test code = MCH) 28.2 pg 27.0-31.0 N Hematology (test code = MCHC) 32.4 g/dL 32.0-36.0 N Hematology (test code = RDW) 13.1 % 11.5-14.5 N Hematology (test code = PLTT) 346 10x3/uL 130-400 N Hematology (test code = MPV) 8.6 fL 7.4-10.4 N Hematology (test code = NE) 47 % 42-75 N Hematology (test code = BA) 4 % 5-11 L Hematology (test code = LY) 37 % 21-51 N Hematology (test code = CANDIE) 1 % 0-10 N Hematology (test code = MO) 8 % 0-10 N Hematology (test code = EO) 3 % 0-10 N Hematology (test code = PCOMMENT) Appears Adequate Hematology (test code = MC) Normal [id number] 02:02:00* Test Item Value Reference Range Interpretation Comme nts Chemistry (test code = TROPI-T) Less than 0.010 ng/mL < 0.028 [id number] 23:23:00* Test Item Value Reference Range Interpretation Comme nts Chemistry (test code = TROPI-R) Less than 0.010 ng/mL < 0.028 * Reference Range 0.00 - 0.028 ng/mL Negative 0.029 - 0.29 ng/mL Indeterminate Greater or Equal to 0.3 ng/mL Strongly suggests HI Chemistry - BNP, HgbA1c, [id number] 23:23:00* Test Item Value Reference Range Interpretation Comme nts Chemistry - BNP, HgbA1c, PTHi (test code = BNP) Less than 10.0 pg/mL 0-100 N [id number] 23:22:00* Test Item Value Reference Range Interpretation Comme nts Chemistry (test code = NA-T) 141 mmol/L 136-145 N Chemistry (test code = K-T) 3.9 mmol/L 3.5-5.1 N Chemistry (test code = CL-T) 108 mmol/L 98-107 H Chemistry (test code = CO2-T) 22 mmol/L 22-29 N Chemistry (test code = ANGP) 15 mmol/L 10-20 N Chemistry (test code = BUN) 15 mg/dL 7.0-18.7 N Chemistry (test code = CREATT) 0.69 mg/dL 0.6-1.1 N Chemistry (test code = EGFRCR) 120 Reference Range for Estimated GFR: Greater than 90 mL/min/1.73 o9Hmmtapod eGFR is based on the CKD-EPI 2020 equation thatdoes not use a race coefficient. Chemistry (test code = GLU-T) 155 mg/dL 70-105 H Chemistry (test code = CA-T) 10.3 mg/dL 7.8-10.44 N Chemistry (test code = TBILI-T) Less than 0.2 mg/dL 0.2-1.2 L Chemistry (test code = TP) 7.1 g/dL 6.0-8.3 N Chemistry (test code = ALB) 4.0 g/dL 3.5-5.0 N Chemistry (test code = GLOB) 3.1 g/dL 2.4-3.5 N Chemistry (test code = AG) 1.3 g/dL 1.2-2.2 N Chemistry (test code = ALP) 66 U/L 40-110 N Chemistry (test code = AST) 12 U/L 5-34 N Chemistry (test code = ALT) 15 U/L 8-55 N Pvtukwwqb4575-16-81 23:22:00* Test Item Value Reference Range Interpretation Comme nts Chemistry (test code = MG-T) 2.1 mg/dL 1.6-2.6 N [id number] 23:20:00* Test Item Value Reference Range Interpretation Comme nts Coagulation (test code = DDIMTT) 0.33 *mcg/mL 0.27-0.43 N * Reference Rang e Units: mcg/mL of fibrinogen equivalent units(FEU)Based upon a retrospective study of [facility] patients in April 2006, a result of"Less than 0.44 mcg/mL FEU" is predictive of the absence ofa DVT or PE. Chemistry - [id number] 23:12:00* Test Item Value Reference Range Interpretation Comme nts Chemistry - Specials (test code = BHCGST) Negative NEGATIVE Method of s ensitivity- Indeterminant: results should be repeated after 48-72 hrs Positive: results may be detected as early as 1 day after the first missed menses. Strep Group A Fzwmhm1093-00-77 18:06:00* Test Item Value Reference Range Interpretation Comme nts Strep Group A Screen (test c ode = STRP) STRPTH A Strep Group A Screen (test c ode = STRP1) P A Chemistry - [id number] 15:34:00* Test Item Value Reference Range Interpretation Comme nts Chemistry - Specials (test code = BHCGST) Negative NEGATIVE Method of s ensitivity- Indeterminant: results should be repeated after 48-72 hrs Positive: results may be detected as early as 1 day after the first missed menses. Huswescxca3822-72-47 15:25:00* Test Item Value Reference Range Interpretation Comme nts Hematology (test code = HGBT) 13.3 g/dL 12.0-16.0 N Hematology (test code = HCTT) 40.7 % 36.0-47.0 N Molecular Testing [id number] 15:01:00* Test Item Value Reference Range Interpretation Comme nts Molecular Testing MM (test code = [id number]) DETECTED NotDetected AA Results called t o: ENDY.[id number]@1501Results called and verbally verified through "read-back".by Neena Shea on 07/24/22 at 1500.Performance of the Cepheid SARS-CoV-2 has only beenestablished in nasopharyngeal swab specimens. This testcannot rule out diseases caused by other bacterial or viralpathogens.Cepheid has been provided an FDA EUA that will be effectiveuntil the declaration that circumstances exist justifyingthe authorization of the emergency use of in vitrodiagnostic tests for detection and/or diagnosis ofCOVID-19 is terminated under Section 564(b)(2) of the Act orthe EUA is revoked under Section 564(g) of the Act. Resident in [facility] Setting: UnknownEmployed in Healthcare: UnknownFirst Test: UnknownHospitalized: UnknownICU: UnknownDate of Symptom Onset: [id number]: UnknownReason for Testing: PUI -SymptomaticSource: Nasopharyngeal SwabSymptomatic as defined by CDC: WgikigiEkvnjujxjp9943-65-60 18:49:00* Test Item Value Reference Range Interpretation Comme nts Urinalysis (test code = UACLR) Yellow Yellow Urinalysis (test code = UACLY) Hazy Clear Urinalysis (test code = SPGR) 1.046 1.002-1.036 H Urinalysis (test code = CARMEN) 5.0 5.0-9.0 N Urinalysis (test code = UALEU) Negative Negative Urinalysis (test code = UANIT) Negative Negative Urinalysis (test code = PROUADIP) 30 mg/dL Neg-Trace A Urinalysis (test code = GLUCU) Negative mg/dL Negative Urinalysis (test code = KETU) Negative mg/dL Negative Urinalysis (test code = UAUROB) 0.2 mg/dL Less than 2 Urinalysis (test code = UABIL) Small Negative A CAUTION Urine Bilirubin has a high incidence of false positiveresults due to urine color interference.Interpret results in conjunction with other clinicalfindings. Urinalysis (test code = UABLD) Negative Negative Urine Source: Urine [id number] 18:49:00* Test Item Value Reference Range Interpretation Comme nts Urinalysis (test code = UARBC) None Seen HPF 0-3 Urinalysis (test code = UAWBC) None Seen HPF 0-3 Urinalysis (test code = UASQUAM) 7-10 HPF 0-3 A Urinalysis (test code = UABAC) Rare-Few HPF None Seen Urinalysis (test code = UAMCS) 2+ LPF See_Comment A [Automated messa ge] The system which generated this result transmitted reference range: <2+. The reference range was not used to interpret this result as normal/abnormal. Urine Source: Urine [id number] 18:45:00* Test Item Value Reference Range Interpretation Comme nts Urinalysis (test code = BHCGUT) Negative Negative Method of sensit ivity- INDETERMINANT: results should be repeated after 48-72 hrs POSITIVE: results may be detected as early as 1 day after the first missed period A dilute urine specimen may not contain representativelevels of hCG.If is still suspected, a first morning urinespecimen OR a random blood specimen should be obtainedfrom the patient 48-72 hours later and re-tested. Urinalysis (test code = PREGUSG) 1.046 1.002-1.036 H [id number] 15:02:00* Test Item Value Reference Range Interpretation Comme nts Chemistry (test code = [id number]) H F GLU 99 Col: 1 0925 1 GLU 207 H Col: 09/20/21 1100 2 GLU 187 H Col: 09/20/21 1200 3 GLU 114 H Col: 09/20/21 1300Normal Ranges Fasting: <95 mg/dL 1 hr: <180 mg/dL 2 hr: <155 mg/dL 3 hr: <140 mg/dLInterpretive Guidelines: A glucose result above the NORMAL range at TWO or more timed intervals is indicative of a POSITIVE result.Ref: International Assoc of Diabetes and StudyGroup Recommendations on the Diagnosis and Classification ofHyperglycemia in . Diabetes Care, Volume 33, Number3, January 2010. Is patient fasting? YMolecular Testing [id number] 17:48:00* Test Item Value Reference Range Interpretation Comme nts Molecular Testing MM (test code = COVIDNAAT) Not Detected NotDetected Negative (Not Detected) results do not preclude infectionwith SARS-CoV-2 virus, and should not be the sole basis of apatient management decision. Consider testing for otherviruses if clinically indicated.The use of this assay as an In vitro diagnostic under theFDA Emergency Use Authorization (EUA) is limited tolaboratories that are certified under the ClinicalLaboratory Improvement Amendments of 1988 (CLIA), 42 U.S.C.263a, to perform high complexity tests. Molecular Testing MM (test code = COVIDSOURCEMM) Nasopharyngeal Swab [facility] Setting: NoEmployed in Healthcare: NoFirst Test: NoHospitalized: NoICU:NoDate of Symptom Onset: [id number]: UnknownReason for Testing: PUI -SymptomaticSource: Nasopharyngeal SwabSymptomatic as defined by CDC: YesCulture, [id number] 10:14:00* Test Item Value Reference Range Interpretation Comme nts Culture, Urine (test code = URC) NF N Culture, Urine (test code = URC1) 25 MSF N Chemistry - Moboghrz2237-96-96 01:45:00* Test Item Value Reference Range Interpretation Comme nts Chemistry - Specials (test c ode = TSH3) 1.2111 uIU/mL 0.35-4.94 N Vxsxjkbzs7871-55-41 01:41:00* Test Item Value Reference Range Interpretation [facility] Chemistry (test code = AMERICO) 28.0 U/L 25-125 N Avzrjtxng9165-68-97 01:41:00* Test Item Value Reference Range Interpretation [facility] Chemistry (test code = LIP) 7 U/L 8-78 L Uruhvqwbs1223-89-94 01:41:00* Test Item Value Reference Range Interpretation [facility] Chemistry (test code = ACET-T) Less than 6.0 mcg/mL 6.0-30.0 L Therapeutic Range: 1 0.0 - 30.0 ug/mLToxic Range: Possible toxicity: 150 - 200 ug/mL Probable toxicity: Greater than 200 ug/mL*IMPORTANT TESTING INFORMATION* The half-life of NAC is 2 hours. The total NAC clearanceis 5.6 hours for adults and 11 hours for Newborns. Testing acetaminophen levels prior to a reasonable timeframe for clearance can cause falsely decreasedacetaminophen levels. Chemistry (test code = ETOH) Less than 10 mg/dL Less than 10 The pharmacological response to blood alcohol levels mayvary from individual to individual. Negative: Less than 10 mg/dL Toxic: 50 - 100 mg/dL Depression of [place] WINDER: Greater than 100 mg/dL Fatalities reported: Greater than 400 mg/dL Chemistry (test code = SALCY) Less than 8.0 mg/dL 15.0-30.0 L [id number] 01:32:00* Test Item Value Reference Range Interpretation [facility] Hematology (test code = WBCT) 10.8 thou/uL [...] BASO#) 0.1 thou/uL 0.0-0.2 N Chemistry - Fxltsmrj1903-43-61 01:32:00* Test Item Value Reference Range Interpretation Comme [facility] Chemistry - Specials (test code = HCGQ) Less than 1.20 mIU/mL See Ranges Males and Non females: Less than 10 mIU/mLPregnancy, weeks of [...] 2 - 3 months 10,000 - 100,000 Ydokneurp1550-34-28 01:24:00* Test Item Value Reference Range Interpretation Comme [facility] Chemistry (test code = NA-T) 140 mmol/L 136-145 N Chemistry (test code = K-T) 3.5 mmol/L 3.5-5.1 N Chemistry (test code = CL) 108 mmol/L 98-107 H Chemistry (test code = CO2) 20 mmol/L 22-29 L Chemistry (test code = ANGP) 16 mmol/L 10-20 N Chemistry (test code = BUN) 13 mg/dL 7.0-18.7 N Chemistry (test code = CREATT) 0.74 mg/dL 0.6-1.1 N Chemistry (test code = EGFRMDRD) Greater than 90 Reference Range for Estimated GFR: Greater than 90 mL/min/1.73 m2NOTE:The MDRD equation has not been validated for use with theelderly (over 70 years of age), women, patientswith serious comorbid condition or persons with extremes ofbody size, muscle mass, or nutritional status. Chemistry (test code = GLU-T) 113 mg/dL 70-105 H Chemistry (test code = CA) 9.8 mg/dL 7.8-10.44 N Chemistry (test code = TBILI) 0.7 mg/dL 0.2-1.2 N Chemistry (test code = TP) 7.3 g/dL 6.0-8.3 N Chemistry (test code = ALB) 4.5 g/dL 3.5-5.0 N Chemistry (test code = GLOB) 2.8 g/dL 2.4-3.5 N Chemistry (test code = AG) 1.6 g/dL 1.2-2.2 N Chemistry (test code = ALP) 83 U/L 40-150 N Chemistry (test code = AST) 14 U/L 5-34 N Chemistry (test code = ALT) 14 U/L 8-55 N Nphibohwwk4401-93-97 01:20:00* Test Item Value Reference Range Interpretation Comme nts Urinalysis (test code = UACLR) Dark Yellow Yellow Urinalysis (test code = UACLY) Slightly Cloudy Clear Urinalysis (test code = SPGR) 1.031 1.002-1.036 N Urinalysis (test code = CARMEN) 6.0 5.0-9.0 N Urinalysis (test code = UALEU) Negative Negative Urinalysis (test code = UANIT) Negative Negative Urinalysis (test code = PROUADIP) > or equal to 300 mg/dL Neg-Trace A Urinalysis (test code = GLUCU) Negative mg/dL Negative Urinalysis (test code = KETU) Negative mg/dL Negative Urinalysis (test code = UAUROB) 2.0 mg/dL 0.2-1.0 A Urinalysis (test code = UABIL) Small Negative A CAUTION Urine Bilirubin has a high incidence of false positiveresults due to urine color interference.Interpret results in conjunction with other clinicalfindings. Urinalysis (test code = UABLD) Trace Negative A Urinalysis (test code = UARBC) 4-6 HPF 0-3 Urinalysis (test code = UAWBC) 11-20 HPF 0-3 A Urinalysis (test code = UASQUAM) 11-20 HPF 0-3 A Urinalysis (test code = UATRANS) 0-3 HPF 0-3 Urinalysis (test code = UARENAL) 0-3 HPF 0-3 Urinalysis (test code = UABAC) 1+ HPF None Seen A Urinalysis (test code = UAYEAST) Rare HPF None Seen Urinalysis (test code = UACRST) RARE AMORPH URATES HPF Negative Urine Source: Urine BjmfkmSjuxsjmarr9764-83-76 01:18:00* Test Item Value Reference Range Interpretation Comme nts Toxicology (test code = ASCENCION) Detected NotDetected A Toxicology (test code = PCP) Not Detected NotDetected Toxicology (test code = COCN) Not Detected NotDetected Toxicology (test code = METHAMPU) Detected NotDetected A Toxicology (test code = OPIA) Not Detected NotDetected Toxicology (test code = AMPHU) Detected NotDetected A Toxicology (test code = LIBIA) Not Detected NotDetected Toxicology (test code = TRICY) Not Detected NotDetected Toxicology (test code = MTD) Not Detected NotDetected Toxicology (test code = CATALINA) Not Detected NotDetected Toxicology (test code = OXYCOD) Not Detected NotDetected Toxicology (test code = PPX) Not Detected NotDetected Toxicology (test code = MTCUTOFF) The [employer] Profile-V Panel for Qualitative Drugs ofAbuse assays are for [...] are held fortwo weeks. Urine Source: Urine VoidedCT Abdomen Pelvis W Con [facility] 1995 [facility] Pt Name: BRIANA FRASER [address] Phys: [place] [address] : 1995 Age: 28 SEX:F [phone] Exam Date: 12/16/23 Status: REG ER Acct: [id number] Loc: [facility]ULIO C[facility]AR Pt Unit #: [id number] Report #: [id number] CC: Will Lopez MD PULSECHECKSJX:[id number] CAT SCAN REPORT Report Status: Signed Order # Category/Exam [id number] CT/CT Abdomen Pelvis W Con ([id number]): . Results EXAM: CT ABDOMEN AND PELVIS WITH CONTRAST TECHNIQUE: CT of the abdomen with intravenous contrast and without oral contrast. Dose modulation, iterative reconstruction, and/or weight-based adjustment of the mA/kV was utilized to reduce the radiation dose to as low as reasonably achievable. INDICATION: Relevant Clinical Info. COMPARISON: comparison. FINDINGS: LOWER THORAX: Unremarkable.. HEPATOBILIARY: No focal hepatic lesion. Hepatic steatosis.. .Gallbladder is unremarkable. . No biliary ductal dilatation. SPLEEN: No splenomegaly. PANCREAS:No focal masses or ductal dilatation. ADRENALS: No adrenal nodule. KIDNEYS/URETERS: 1 cm simple appearing cyst within the left kidney midpole. No hydronephrosis, stones or solid mass lesion. PERITONEU M/RETROPERITONEUM: Stranding within the left anterior abdominal fat (axial image 45). Epiploic appendicitis would be a consideration. LYMPH NODES: No lymphadenopathy. VESSELS: Unremarkable. GI TRACT:Diverticulosis without CT evidence of diverticulitis. No free fluid or free air. No distention or wall thickening. BONES AND SOFT TISSUES: Unremarkable. IMPRESSION: 1. Stranding within the left anterior abdominal fat (axial image 45). Epiploic appendicitis would be a consideration. 2. Diverticulosis. No definite CT evidence of diverticulitis. No free fluid or free air. 3. Hepatic steatosis. 4. 3.3 cm soft tissue lesion within the left breast, indeterminate on imaging. Correlation with outpatient mammography and ultrasound is recommended. Reported By: Karina Gonzalez MD Electronically Signed Date/Time: 12/16/232108 Technologist: KAMERON Dictated Date/Time: 12/16/232101 Transcribed Date/Time:XR Knee Rt 4 View [facility] B[facility] FR[facility] JAN : 1995 Sex: [facility] Pt Name: BRIANA FRASER [address] Phys: Ena Duarte MDMaedd, [place] [address] : 1995 Age: 27 SEX:F [phone] Exam Date: 03/19/23 Status: DEP ER Acct: [id number] Loc: MYLENE Pt Unit #: [id number] Report #: [id number] CC: Ena Duarte MD IMAGING SERVICES REPORT Report Status: Signed Order # Category/Exam [id number] RAD/XR Knee Rt 4 View STANDARD ([id number]): . Results Radiograph right knee 4 views: HISTORY: 27-year-old female with acute on chronic right knee pain FINDINGS: Difficult to evaluate for joint effusion because of overlyingclothing. There is probably edema in Hoffa's fat pad. No fracture or dislocation. Joint spaces are maintained without erosions or osteophytes. No destructive osseous lesion. IMPRESSION: 1. No osseousabnormality. 2. Edema in Hoffa's fat pad and questionable joint effusion. Reported By: Rakesh Barrios MD Electronically Signed Date/Time: 03/20/23100 Technologist: KALI Dictated Date/Time: 03/20/23 010 Transcribed Date/Time:XR Chest 1 View PortableUNIVERSITY MED[facility]ame: BRIANA FRASER : 1995 Sex: [facility] Pt Name: BRIANA FRASER [address] Phys: [place] [address] : 1995 Age: 27 SEX:F [phone] Exam Date: 02/25/23 Status: REG ERAcct: [id number] Loc: [facility]IO C[facility] Pt Unit #: [id number] Report #: [id number] CC: LesterZo DO IMAGING SERVICES REPORT Report Status: Signed Order # Category/Exam [id number] RAD/XR Chest 1 View Portable ([id number]): . Results RADIOGRAPH CHEST 1 VIEW: DATE: 02/25/2023 HISTORY: Chest pain FINDINGS: There are no airspace densities, pulmonary edema, pneumothorax, or cardiomegaly. The lateral costophrenic angles are sharp. IMPRESSION: No acute cardiopulmonary findings. Reported By: Rakesh Barrios MD Electronically Signed Date/Time: 02/25/232307 Technologist: ELZBIETA Dictated Date/Time: 02/25/232301 Transcribed Date/Time:US Breast Limited Lt Name: BRIANA FRASER : 1995 Sex: F Pt Name: BRIANA FRASER JAN Phys: Amy Brand NP , : 1995 Age: 27 SEX:F Exam Date: 02/19/23 Status: REG CLI Acct: [id number] Loc: CSLT Pt Unit #: [id number] Report #: [id number] CC: Amy Brand NP ULTRASOUND REPORT Report Status: Signed Order # Category/Exam [id number] ULT/US Breast Limited Lt ([id number]): . Results US Breast Limited Lt History: Left breast palpable lump Comparison: None. Findings: Real-timegrayscale and color evaluation of the left breast was performed first by the technologist and then in real-time by the radiologist. Corresponding to the palpable abnormality left breast which appears to be 3 adjacent fibroadenomas measuring 1.1 cm in greatest transverse dimension, 1.5 cm greatest transverse dimension, and 1.9 cm in greatest transverse dimension all abutting each other and individually and as a conglomerate encapsulated with fibrous septations. No angular margins. No abnormal calcifications. Impression: BI-RADS Category 3: Likely benign. Imaging appearance of benign fibroadenoma left breast 11:00 1 cm from the nipple in the area of palpable abnormality. Of note the patient does state she did have an ultrasound of this same region numerous years ago and a benign mass was present at thattime. Six-month follow-up ultrasound recommended for confirmation of stability. Reported By: BUTCH RASMUSSEN Electronically Signed Date/Time: 02/19/23 1007 Technologist: Dictated Date/Time: 02/19/23 0938 Transcribed Date/Time:US OB Ltd Name: BRIANA FRASER JAN : 1995 Sex: [facility] Pt Name: BRIANA FRASER [address] [facility] Phys: [place] [address] : 1995 Age: 26 SEX:F Exam Date: 10/04/21 Status: REG [facility] Acct: [id number] Loc: [facility]/OP Pt Unit #: [id number] Report #: [id number] CC: Mariana Vega ULTRASOUND REPORTOrder # Category/Exam [id number] ULT/ OB [facility] ([id number]): . Results EXAM: OB [facility] 10/04/2021 11:47 AM HISTORY: CSH . H/O Leaking fluid, needs EDILIA TECHNIQUE: Grayscale, M-mode Doppler, color Doppler and spectral Doppler images were obtained. Imaging is focused on the clinical indication. COMPARISON: Second trimester OB ultrasound 08/22/2021 FINDINGS: GESTATION: Number of gestations: Single. Presentation: Cephalic. heart rate: 159 bpm. Placental location: Anterior Previa: No evidence for previa. EDILIA: 6.93 cm. BIOMETRY: Biparietal diameter: 7.38cm, 29 weeks 4 days, Not calculated..Head circumference: 27.15 cm, 29 weeks 4 days, Not calculated. Abdominal circumference: 25.62 cm, 29 weeks 6 days, Not calculated. Femoral length: 5.49cm, 29 weeks 0 days, Not calculated. Estimated weight: 1403 g +/- 210.52g (3 lbs. 1 oz. +/- 7 ounces), Not calculated. The average gestationalage by ultrasound is 29 weeks 4 days +/- 2 weeks 0 dayswith estimated due date of 12/16/2021. The estimated dates by clinical data is 29 weeks 2 dayswith estimated due date of 12/18/2021. IMPRESSION: 1. Single live intrauterine gestation with size and dates as above. 2. EDILIA: 6.93 cm on today's exam. Previously measuring 8.3 cm on 08/22/2021 comparison. Reported By: Jose Gibson Electronically Signed : 10/04/2021 12:25 PM Reported By: Jose Gibson MD Electronically Signed Date/Time: 10/04/21 1225 Technologist: CHANTAL Dictated Date/Time: 10/04/21 1218 Transcribed Date/Time: OB Complete STANDARD Name: BRIANA FRASER : 1995 Sex: [facility] Pt Name: BRIANA FRASER [address] [facility] Phys: [place] [address] : 1995 Age: 26 SEX:F Exam Date: 08/22/21 Status: REG CLI Acct: [id number] Loc: [facility] Pt Unit #: [id number] Report #: [id number] CC: Amy Brand NP ULTRASOUND REPORT Order # Category/Exam [id number] ULT/US OB Complete STANDARD ([id number]): . Results EXAM: Completeobstetrical ultrasound HISTORY: Encounter for supervision of normal first TECHNIQUE: Grayscale, M-mode Doppler and Doppler images were obtained of the abdomen and pelvis to evaluate the fahad ent's known . COMPARISON: None. FINDINGS: Number of gestations: Single. Presentation: Cephalic. Placental location: Anterior Previa: No evidence for previa. Cervical length: 4.3 cm. EDILIA: 8.31 cm. heart rate: 157 bpm. Biparietal diameter: 5.6cm, 23 weeks 1 day, 15th percentile. Head circumference: 20.93 cm, 23 weeks 0 days, 7th percentile Abdominal circumference: 18.95 cm, 23 weeks 5 days, 32nd percentile Femoral length: 3.98cm, 22 weeks 6 days, 9th percentile Estimated weight: 579.25 g +/- 86.89g (1 lb. 4 oz. +/- 3 ounces), 14th percentile SURVEY: head: Normalappearing. Cerebellum: Normal appearing. Cisterna magna: Normal appearing. Lateral ventricles: Normal appearing. 4 chamber heart: Normal appearing.. Stomach: Normal appearing. Kidneys: Normal appearing. Cord insertion: Normal appearing. Bladder: Normal appearing. Spine: Normal appearing. Lips and nose: Not well seen. Extremities: Normal appearing. Three-vessel CORD: Normal appearing. The averagegestational age by ultrasound is 23 weeks 1 daywith estimated due date of December 18, 2021. The estimated dates by clinical data is 24 weeks 0 dayswith estimated due date of December 12, 2021. IMPRESSION: 1. Single live intrauterine gestation with size and dates as above. 2. The lips and nose were not well seen on the survey. Follow-up exam in one to 2 weeks is recommended to complete survey. The fetus is slightly small for gestational age. A follow-up examination would be helpful todocument interval growth. Reported By: Harris Reid MD Electronically Signed Date/Time: 08/22/21 1558 Technologist: Dictated Date/Time: 08/22/21 155 Transcribed Date/Time: Notes Date/Time Note Provider Source 2021-10-29 20:56:00 [facility] Name: BRIANA FRASER [address] [facility] : 1995, Age: 26, Sex: [place] [address] Unit #: [id number], Status: REG [facility] Location: [facility]/OP Report Dict DrTennille: Georgia Cotton MD Admission Date: Report #: [id number] Discharge Date: CC: Labor and Delivery H P Labor and Delivery H P Chief complaint: other (back pain) HPI: 26 y/o at 32w6d, patient of Dr. Rodriguez, presents with constant left flank and lower back pain for 3-4 days. Believes it is muscle spasms. Took Tylenol and drinking water all day with little relief. Does have some dysuria and frequency. Sees Dr. Rodriguez tomorrow Denies VB, LOF, ctx, or decreased FM. ROS neg for HEENT, cv, pulm, gi, gu, neuro, psych, skin, musculoskeletal or constitutional symptoms other than mentioned above. 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 No e/o pyelonephritis or UTI. status reassuring with reactive NST. - Plan -: Given a dose of morphine for pain relief, Rx for Flexeril sent to pharmacy. D/c home with precautions. Comfort measures discussed. Advised to keep all appointments. <Electronically signed by Georgia Cotton MD> 10/29/21 2158 Georgia Cotton STLSJX 2021-10-04 11:46:00 [facility] Name: BRIANA FRASER [address] [facility] : 1995, Age: 26, [place]: [place] [address] Unit #: [id number], Status: REG [facility] Location: CSHLD/OP Report Dict DrTennille: Mariana Vega DO Admission Date: Report #: [id number] Discharge Date: CC: Labor and Delivery H P Labor and Delivery H P Chief complaint: loss of fluid, decreased movement (States she felt leaking yesterday. Noted that it was clear to yellow.), other (Noted some blood when she wiped. She started having vaginal pressure at the same time.) HPI: 26yo EDC [id number] presents for vaginal bleeding and decreased movement. Patient states she had some leaking yesterday, but felt vaginal pressure today along with seeing blood when she wiped. She also stated prior to coming to hospital she didn't feel her baby move. Since being in triage, she has felt a lot of movement. 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 Denies SI or HI today, blood transfusion x 2, GDM FHx: HTN-maternal and paternal side, DM - maternal and maternal side, Cancer - Mother (cervical), PGM (breast) Current medications: pre-jose daniel vitamins Previous surgical history: dilation and curettage, other (LEEP () Colpo x 2 (, )) Allergies/Adverse Reactions: Allergies Allergy/AdvReac Type Severity Reaction Status Date / Time No Known Allergies Allergy Verified 02/22/20 20:51 Social history: tobacco use (Stopped ), alcohol use (Social drinker, stopped 3yrs ago), drug use (Meth addiction, stopped , is currently in support group) - Physical Exam Vital signs reviewed and normal: yes General: NAD Heart: RRR Lungs: CTAB Abdomen: gravid Extremeties: trace edema FHT: variability present (Strip appropriate for gestational age) - Vaginal Exam cm dilated: 0 (No vaginal bleeding or pooling apprecited) Effacement: 0% - OB Labs Blood type: unknown RH: unknown Antibody Screen: unknown HIV: unknown RPR: unknown HEPSAg: unknown 1 hour GCT: unknown GBS: unknown Urine drug screen: not done ( labs not available at the time of this encounter) - Assessment 1. IUP @ 29.3 wk 2. Bedside US shows an anterior placenta, VTX presentation, but fluid looks low 3. H/O Vaginal bleeding 4. H/O DFM - Plan -: 1. Bedside US 2. Obtain a formal US 3. Obtain aminosure, VP3, UA, and GC/Chlamydia <Electronically signed by Mariana Vega DO> 10/04/21 1219 Mariana Vega STLSJX
[2024-09-09 19:07] LABS: Absolute Basophils 0.1 K/uL (0-0.5); Absolute Eosinophils 0.2 K/uL (0-0.5); Absolute Lymphocytes (CBC) 3.1 K/uL (0.7-4.9); Absolute Monocytes 0.8 K/uL (0.1-1.3); Absolute Neutrophil 6.7 K/uL (1.8-8.0); Basophils % 0.6 % (0-1.3); Hematocrit 37.6 % (36.0-45.0); Hemoglobin 12.7 g/dL (12.0-15.0); Lymphocytes % 28.6 % (15.3-44.8); MCH 30.3 pg (27.0-35.0); MCHC 33.9 g/dL (32.0-36.0); MCV 89.6 fL (80-100); MPV 8.4 fL (7.6-11.3); Monocytes % 7.3 % (3.3-12.3); Neutrophils % 61.5 % (41.7-73.7); Nucleated Red Blood Cells % 0.1 % (0-0); Platelets 369 thou/uL (152-406); Red Cell Distribution Width 14.4 % (12.1-15.2)
[2024-09-09 19:11] LABS: ALT/SGPT 15 U/L (13-56); Albumin 3.1 g/dL (3.4-5.0); Albumin/Globulin Ratio 0.8 (1.1-1.8); Alkaline Phosphatase 61 U/L (45-117); Anion Gap 9.8 mEq/L (5.0-15.0); BUN Blood Urea Nitrogen 15 mg/dL (7-18); Bicarbonate 23 mEq/L (21-32); Globulin 3.9 g/dL (2.3-3.5); Glomerular Filtration Rate 125 ml/min (=/>90); Glucose Level 104 mg/dL (74-106); Magnesium 2.1 mg/dL (1.6-2.4); Potassium 3.8 mEq/L (3.5-5.1); Sodium Level 139 mEq/L (136-145); Troponin High Sensitivity 7.4 pg/mL (<58.9)
[2024-09-09 19:12] LABS: AST/SGOT < 10 U/L (15-37); Bilirubin Direct < 0.2 mg/dL (0-0.2); Bilirubin Total < 0.2 mg/dL (0.2-1.0)
--- NOTE | 2024-09-09 19:13 | RAD REPORT ---
EXAMINATION: ONE VIEW CHEST XR CLINICAL INDICATION: Female, 29 years old.,CHEST PAIN TECHNIQUE: Frontal chest projection is submitted. Examination is limited by patient positioning and t echnique. COMPARISON: 02/11/2020 FINDINGS: The lungs are well inflated and clear. No pneumothorax or sizable effusion. The heart is normal in s ize. IMPRESSION: No acute intrathoracic abnormalities.
--- NOTE | 2024-09-09 19:22 | ER ---
Nurse's Notes [facility] Name: Nina Parrish Age: 29 yrs Sex: Female : 1995 Arrival Date: 09/09/2024 Time: 18:11 Bed 2 Private MD: Diagnosis: Chest pain, unspecified Presentation: 09/09 18:27 Chief complaint: Patient states: CP for years, worse for 2 days. Coronavirus screen: ll1 Client denies travel out of the [place] in the last 14 days. At this time, the client does not indicate any symptoms associated with coronavirus-19. Ebola Screen: Patient denies travel to an Ebola-affected area in the 21 days before illness onset. Initial Sepsis Screen: Does the patient meet any 2 criteria? No. Patient's initial sepsis screen is negative. Does the patient have a suspected source of infection? No. Patient's initial sepsis screen is negative. Risk Assessment: Do you want to hurt yourself or someone else? Patient reports no desire to harm self or others. Onset of symptoms was September 08, 2024. 18:27 Method Of Arrival: Ambulatory ll1 18:27 Acuity: OMAIRA 3 ll1 Triage Assessment: 18:28 General: Appears in no apparent distress. Behavior is calm, cooperative, appropriate ll1 for age. Pain: Complains of pain in chest Quality of pain is described as aching, pressure, Pain began 2-3 days ago. Cardiovascular: Reports chest pain. 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 - Infectious Disease History:: Denies. - Social history:: Smoking status: Patient denies any tobacco usage or history of. Screenin:27 [facility] ED Fall Risk Assessment (Adult) History of falling in the last 3 months, me1 including since admission No falls in past 3 months (0 pts) Confusion or Disorientation No (0 pts) Intoxicated or Sedated No (0 pts) Impaired Gait No (0 pts) Mobility Assist Device Used No (0 pt) Altered Elimination No (0 pt) Score/Fall Risk Level 0 - 2 = Low Risk Maintained a safe environment, Provided non-skid footwear, Hourly rounding (assess needs \T\ fall precautionary measures) done. Abuse screen: Denies threats or abuse. Nutritional screening: No deficits noted. Tuberculosis screening: No symptoms or risk factors identified. Assessment: 18:27 General: Appears uncomfortable, well developed, well nourished, Behavior is calm, me1 cooperative, appropriate for age, Reports epigastric cp 4/10 that is sharp and tight and radiates straight through to her back. Pain: Complains of pain in xiphoid area Pain radiates to thoracic area Pain currently is 4 out of 10 on a pain scale. Quality of pain is described as sharp, tight Pain began suddenly, this morning. Neuro: Level of Consciousness is awake, alert, obeys commands, Oriented to person, place, time, situation, Appropriate for age. Cardiovascular: Patient's skin is warm and dry. Respiratory: Airway is patent Respiratory effort is even, unlabored, Respiratory pattern is regular, symmetrical. GI: No signs and/or symptoms were reported involving the gastrointestinal system. : No signs and/or symptoms were reported regarding the genitourinary system. EENT: No signs and/or symptoms were reported regarding the EENT system. Derm: Skin is intact, is healthy with good turgor, Skin is pink, warm \T\ dry. Musculoskeletal: No signs and/or symptoms reported regarding the musculoskeletal system. Vital Signs: 18:27 BP 129 / 92; Pulse 76; Resp 19; Temp 97.7; Pulse Ox 96% on R/A; Weight 81.65 kg; Height ll1 5 ft. 1 in. ; 19:00 BP 124 / 76; Pulse 63; Resp 19; Temp 98.1; Pulse Ox 98% ; me1 18:27 Body Mass Index 34.01 (81.65 kg, 154.94 cm) ll1 ED Course: 18:12 Patient arrived in ED. mr 18:12 Ari[facility]ared[facility]-C [facility] kb 18:12 Rafal Mclain MD is Attending Physician. kb 18:14 Arm band placed on Patient placed in an exam room, on a stretcher. 1 18:22 EKG completed in triage. Results shown to MD. 1 18:27 Patient has correct armband on for positive identification. Bed in low position. Call me1 light in reach. Side rails up X2. Provided Education on: POC. Verbalized understanding. . Client placed on continuous cardiac and pulse oximetry monitoring. NIBP monitoring applied. vehicle monitor technician on. Pulse ox on. NIBP on. 18:27 No provider procedures requiring assistance completed. Patient maintains SpO2 me1 saturation greater than 95% on room air. 18:28 Triage completed. 1 18:32 EKG done, by ED staff, reviewed by Ariela REYES. pa1 18:49 Chanda Sawyer, RN is Primary Nurse. pa1 18:49 Basic Metabolic Panel Sent. pa1 18:49 CBC with Diff Sent. me1 18:49 LFT's Sent. pa1 18:49 Magnesium Sent. pa1 18:49 Troponin HS Sent. pa1 18:49 Initial lab(s) drawn, by me, sent to lab. Inserted saline lock: 22 gauge in left me1 antecubital area, using aseptic technique. 19:03 XRAY Chest (1 view) In Process Unspecified. EDMS 19:36 IV discontinued, intact, bleeding controlled, No redness/swelling at site. Pressure me1 dressing applied. Administered Medications: No medications were administered Medication: 18:27 VIS not applicable for this client. pa1 Outcome: 19:21 Discharge ordered by . kb 19:36 Discharged to home ambulatory, pa1 19:36 Condition: stable 19:36 Discharge instructions given to patient, Instructed on discharge instructions, follow up and referral plans. Demonstrated understanding of instructions, follow-up care, 19:37 Patient left the ED. pa1 Signatures: Dispatcher [employer] EDPA Ariela Paredes FNP-C FNP-Courtney Lockett, Jason Reg Fang Hinkle, RN RN 1 Chanda Sawyer, RN RN pa1 Corrections: (The following items were deleted from the chart) 18:27 18:14 Allergies: No Known Allergies; [facility]
--- NOTE | 2024-09-09 19:22 | EDPHYS ---
Physician Documentation [facility] Name: Nina Parrish Age: 29 yrs Sex: Female : 1995 Arrival Date: 09/09/2024 Time: 18:11 Bed 2 Private MD: ED Physician Rafal Mclain HPI: 09/09 19:33 This 29 yrs old Female presents to ER via Ambulatory with complaints of Chest Pain. kb 19:33 Pt is a 29 year old female who presents for chest pain to center of her chest that has kb been ongoing for years, but became constant yesterday. Denies nausea, vomiting, shortness of breath. States she was recently diagnosed bipolar and PTSD but hasn't started medications for that yet. 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 - Infectious Disease History:: Denies. - Social history:: Smoking status: Patient denies any tobacco usage or history of. ROS: 19:17 Constitutional: As per HPI kb Exam: 19:17 Constitutional: This is a well developed, well nourished patient who is awake, alert, kb and in no acute distress. Head/Face: Normocephalic, atraumatic. ENT: Moist Mucous membranes Cardiovascular: Regular rate Respiratory: Respirations even and unlabored. No increased work of breathing. Talking in full sentences Abdomen/GI: Soft, non-tender. No distention Skin: Warm, dry with normal turgor. Normal color. MS/ Extremity: Pulses equal, no cyanosis. Neurovascular intact. Full, normal range of motion. Neuro: Awake and alert, GCS 15, oriented to person, place, time, and situation. Moves all extremities. Normal gait. 19:17 ECG was reviewed by the Attending Physician. Vital Signs: 18:27 BP 129 / 92; Pulse 76; Resp 19; Temp 97.7; Pulse Ox 96% on R/A; Weight 81.65 kg; Height ll1 5 ft. 1 in. ; 19:00 BP 124 / 76; Pulse 63; Resp 19; Temp 98.1; Pulse Ox 98% ; me1 18:27 Body Mass Index 34.01 (81.65 kg, 154.94 cm) ll1 MDM: 18:13 Patient medically screened. kb 19:33 Differential diagnosis: acute mi, arrhythmia, stress reaction. Data reviewed: vital kb signs, nurses notes. Counseling: I had a detailed discussion with the patient and/or guardian regarding the historical points, exam findings, and any diagnostic results supporting the discharge/admit diagnosis, lab results, radiology results, the need for outpatient follow up, a family practitioner, to return to the emergency department if symptoms worsen or persist or if there are any questions or concerns that arise at home. 09/09 18:25 Order name: Basic Metabolic Panel; Complete Time: 19:15 kb 09/09 18:25 Order name: CBC with Diff; Complete Time: 19:16 kb 09/09 18:25 Order name: LFT's; Complete Time: 19:15 kb 09/09 18:25 Order name: Magnesium; Complete Time: 19:15 kb 09/09 18:25 Order name: Troponin HS; Complete Time: 19:15 kb 09/09 18:25 Order name: XRAY Chest (1 view); Complete Time: 19:15 kb 09/09 18:25 Order name: EKG; Complete Time: 18:25 kb 09/09 18:25 Order name: Cardiac monitoring; Complete Time: 18:32 kb 09/09 18:25 Order name: EKG - Nurse/Tech; Complete Time: 18:32 kb 09/09 18:25 Order name: IV Saline Lock; Complete Time: 18:49 kb 09/09 18:25 Order name: Labs collected and sent; Complete Time: 18:49 kb 09/09 18:25 Order name: O2 Per Protocol; Complete Time: 18:32 kb 09/09 18:25 Order name: O2 Sat Monitoring; Complete Time: 18:32 kb EC:17 Rate is 63 beats/min. Rhythm is regular. QRS Rembert is Normal. PA interval is normal at kb 158 msec. QRS interval is normal at 88 msec. QT interval is normal at 437 msec. Administered Medications: No medications were administered Disposition Summary: 09/09/24 19:21 Discharge Ordered Notes: Location: Home kb Condition: Stable kb Diagnosis - Chest pain, unspecified kb Followup: kb - With: Emergency Department - When: As needed - Reason: Worsening of condition Followup: kb - With: Private Physician - When: 2 - 3 days - Reason: Recheck today's complaints, Continuance of care, Re-evaluation by your physician Discharge Instructions: - Discharge Summary Sheet kb - Nonspecific Chest Pain, Adult, [id number] kb Forms: - Medication Reconciliation Form kb - Antibiotic Education kb - Prescription Opioid Use kb - Patient Portal Instructions kb - Leadership Thank You Letter kb Addendum: 09/11/2024 07:44 I was immediately available for consultation during this patient's visit. I did not e c2 personally see the patient or discuss the patient with the RAUL. . Signatures: Dispatcher [employer] EDAriela Squires, ERIC ROBERTSON-Fang Barbosa RN RN ll1 Chanda Sawyer RN RN me1 Rafal Mclain MD MD ec2 Corrections: (The following items were deleted from the chart) 09/09 18:27 18:14 Allergies: No Known Allergies; [email or web address] ll1
[2024-09-09 22:45] VITALS: BP 124/76; TEMP 98.1; O2SAT 98
--- NOTE | 2024-09-10 16:53 | EKG ---
Test Date: 2024-09-09 Test Time: 18:21:07 Receipt And Report Clerk: LML MEASUREMENT RESULTS: Intervals: Rate: 63 NC: 158 QRSD: 88 QT: 428 QTc: 437 Sutton: P: 20 NC: 158 QRS: 61 T: 42 INTERPRETIVE STATEMENTS: Normal sinus rhythm Normal ECG Compared to ECG 02/11/2020 21:48:14 No significant changes Electronically Signed On 09-10-24 16:50:19 CDT by Pb Sierra
== END 2024-09-09 19:37 | disposition home or self-care (01) ==
LOC: ER 18:11
DX: R07.9 Chest pain, unspecified (principal)
CPT/HCPCS: 36415; 71045; 80048; 80076; 83735; 84484; 85025; 93005

== ENCOUNTER 2025-01-12 18:58 | Emergency (ER) | payer OTHER ==
--- OUTSIDE RECORDS SUMMARY | 2025-01-12 19:01 | XMS REPORT | Continuity of Care Document ---
Author Name Unknown Address [address] 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 Role Phone Pcp, Patient Does Not Have A Primary Care Physic meeta Butch Vo Attending Clinician Unavailable Amy Handy Attending Clinician Unavaila Radha Harrell Attending Clinician Unavailab JESUS Garza Attending Clinician Unavailable Jesus Powell Attending Clinician [phone] Vtc-Lab Attending Clinician Unavailable AVRIL SANTOS Attending Clinician Unavailable Zo Batista Attending Clinician Unavailable Will Lopez Attending Clinician Unavailab Ena Luna Attending Clinician Unavailable Amy Brand Attending Clinician Unavailable Timi Bolivar Attending Clinician Unavailable Venita Attending Clinician Unavailable Johann Steel Attending Clinician Unavailable Butch Ribeiro Attending Clinician Unavailable Bhupinder Campos Attending Clinician Unavailable Sheryl Ruelas MA Attending Clinician UnavailRakan Cannon Attending Clinician Unavailable Sunday Berkowitz Attending Clinician Unavailable BRET MARTINEZ Attending Clinician Unavailab tino Lebron, Ang-Rmchp Attending Clinician Unavailable DEVONTE FUENTES Attending Clinician Unavail able Ke Damico Attending Clinician Unavailable JASE GILLILAND Attending Clinician Unavailable Sean Gary Attending Clinician Unavailable Demarco Temple Attending Clinician Unavailable Ricardo Benz Attending Clinician Unakacie Nathan Admitting Clinician Unavailable Rakan Rodriguez Admitting Clinician Unavailable Demarco Temple Admitting Clinician Unavailable Payers Payer Name Policy Type Policy Number Effective Date Expirati on Date Source [facility] (MEDICAID HMO) [id number] 2022 00:00:00 2022 00:00:00 MEDICAID PENDING PENDING 2021 00:00:00 Problems Condition Name Condition Details Condition Category Status Onset Date Resolution Date Last Treatment Date Treating Clinician Comments Source Panic attack Panic attack Disease Active 2023-12 00:00: 00 [facility] PTSD (post-trau matic stress disorder) PTSD (post-trau matic stress disorder) Disease Active 2023-12 00:00: 00 [facility] Bipolar 1 disorder Bipolar 1 disorder Disease Active 2023-12 00:00: 00 [facility] High cholestero l High cholestero l Disease Active 06-05 00:00: 00 [facility] Rubella non-immune status, antepartum Rubella non-immune status, antepartum Disease Active 06-13 00:00: 00 Overview: Formattin g of this note might be different from the original. Address in PP. [facility] Supervisio n of high risk in first trimester Supervisio n of high risk in first trimester Disease Active 06-12 00:00: 00 [facility] Inmate in correction al facility Inmate in correction al facility Disease Active 06-12 00:00: 00 [facility] Obesity in Obesity in Disease Active 06-12 00:00: 00 [facility] BMI 37.0-37.9, adult BMI 37.0-37.9, adult Disease Active 06-12 00:00: 00 [facility] Multiparit y Multiparit y Disease Active 06-12 00:00: 00 [facility] History of depression History of depression Disease Active 06-12 00:00: 00 [facility] Constipati on, unspecifie d constipati on type Constipati on, unspecifie d constipati on type Disease Active 06-12 00:00: 00 [facility] Alcohol dependence in remission Alcohol dependence in remission Disease Active 06-12 00:00: 00 [facility] History of drug abuse History of drug abuse Disease Active 06-12 00:00: 00 [facility] Cramping affecting , antepartum Cramping affecting , antepartum Disease Active 06-12 00:00: 00 [facility] Chlamydia Chlamydia Disease Active 2016-12 00:00: 00 [facility] Encounter for contracept luis felipe management , unspecifie d type Encounter for contracept luis felipe management , unspecifie d type Disease Active 2016-12 00:00: 00 [facility] Breast mass, right Breast mass, right Disease Active 2016-12 00:00: 00 [facility] Depression , unspecifie d depression type Depression , unspecifie d depression type Disease Active 2016-12 00:00: 00 [facility] Drug usage Drug usage Disease Active 2016-12 00:00: 00 [facility] BMI 25.0-25.9, adult BMI 25.0-25.9, adult Disease Active 2016-12 00:00: 00 [facility] Anemia, unspecifie d type Anemia, unspecifie d type Disease Active 2016-12 00:00: 00 [facility] BMI 25.0-25.9, adult BMI 25.0-25.9, adult Disease Active 2016-12 00:00: 00 [facility] Allergies, Adverse Reactions, Alerts Allergy Name Allergy Type Status Severity Reaction(s) Onset Date Inactive Date Treating Clinician Comments Source No Known Allergie s DA Active U 12-04 00:00: [address] [facility] mary jo No Known Allergie s DA Active U 2020-12 00:00: [address] [facility] mary jo No Known Allergie s DA Active U 02-21 00:00: 00 ST[facility]JX Shrimp Propensi ty to adverse reaction s Active Shortness of Breath 2016-12 00:00: 00 Lips swell [facility] SHRIMP DRUG INGREDI Active SOB 2016-12 00:00: 00 [facility] Social History Social Habit Start Date Stop Date Quantity Comments Source ASSERTION 2021-03-29 00:00:00 [facility] History of tobacco use Cigarette Smoker [facility] Alcoholic beverage intake 2022-03-14 00:00:00 2022-03-14 00:00:00 Current non-drinker of alcohol (finding) [facility] Cigarettes smoked current (pack per day) - Reported 2021-06-12 00:00:00 2021-06-12 00:00:00 [facility] Cigarette pack-years 2021-06-12 00:00:00 2021-06-12 00:00:00 [facility] Tobacco use and exposure 2021-06-12 00:00:00 2021-06-12 00:00:00 Smokeless tobacco non-user [facility] Alcohol intake 2021-06-12 00:00:00 2021-06-12 00:00:00 Current non-drinker of alcohol (finding) [facility] Tobacco Comment 2021-06-12 00:00:00 2021-06-12 00:00:00 trying to wean herself 3-4 cigarrettes per day [facility] History of Social function 2021-06-12 00:00:00 2021-06-12 00:00:00 [facility] Sex assigned at 1995 00:00:00 1995 00:00:00 [facility] Smoking Status Start Date Stop Date Source Light tobacco smoker 2021-06-12 00:00:00 [facility] Medications Ordered Medication Name Filled Medication Name Start Date Stop Date Current Medication? Ordering Clinician Indication Dosage Frequency Signature (SIG) Comments Components Source ergocalcife rol, vitamin d2, 1,250 mcg (50,000 unit) capsule 2023-12 00:00: 00 Yes [id number] Take 1 capsule by mouth weekly. [facility] semaglutide (OZEMPIC) 0.25 mg or 0.5 mg (2 mg/3 mL) PnIj 2023-12 00:00: 00 Yes [id number] Start with 0.25 mg weekly for 4 weeks and thereafter increase dose to 0.5 mg weekly. [facility] metformin HCl (METFORMIN ORAL) 2023-12 15:25: 37 11-06 00:00 :00 Yes Take by mouth. [facility] atorvastati n 10 mg tablet 2023-12 00:00: 00 Yes [id number] 10mg Take 1 tablet by mouth at bedtime. [facility] OLANZapine 10 mg tablet 2023-12 00:00: 00 Yes 10mg Take 1 tablet by mouth at bedtime. [facility] OXcarbazepi ne 300 mg tablet 2023-12 00:00: 00 Yes TAKE 1 TABLET BY MOUTH TWICE DAILY FOR MOOD OR IRRITABILI GY [facility] prazosin 1 mg capsule 2023-12 00:00: 00 Yes 1mg Take 1 capsule by mouth at bedtime. [facility] SERTraline 100 mg tablet 08-03 00:00: 00 Yes [facility] desogestreL -ethinyl estradioL (APRI) 0.15-0.03 mg per tablet 05-11 00:00: 00 Yes [facility] 25/iron fum/folic/d mclain (-1 ORAL) 06-12 11:00: 04 Yes Take by mouth. [facility] Vital Signs Vital Name Observation Time Observation Value Comments S tim Systolic blood pressure 2024-11-06 21:29:00 124 mm[Hg] [facility] Diastolic blood pressure 2024-11-06 21:29:00 89 mm[Hg] [facility] Heart rate 2024-11-06 21:29:00 86 /min [facility] Respiratory rate 2024-11-06 21:29:00 18 /min [facility] Body height 2024-11-06 21:29:00 154.9 cm [facility] Body weight 2024-11-06 21:29:00 95.255 kg [facility] BMI 2024-11-06 21:29:00 39.68 kg/m2 [facility] Oxygen saturation in Arterial blood by Pulse oximetry 2024-11-06 21:29:00 96 /min [facility] WEIGHT 2021-12-04 20:52:00 98.480832 kg HEIGHT 2021-12-04 20:52:00 154.94 cm Largest Baby Weight: 2021-11-09 13:40:38 8#4 OZ Body Mass Index (BMI) 2021-11-09 13:40:38 40.0 Height 2021-11-09 13:40:38 61 Weight 2021-11-09 13:40:38 3392 Pre- Weight 2021-11-09 13:40:38 2160 Hx Suicide Attempt 2021-11-09 13:40:38 N Hx Suicide Attempt 2021-11-09 13:40:36 N Largest [...] Weight 2021-10-29 20:35:28 2160 WEIGHT 2021-10-29 20:35:00 96.974645 kg HEIGHT 2021-10-29 20:35:00 154.94 cm Hx [...] Weight 2021-10-08 01:22:52 2160 WEIGHT 2016-11-13 02:19:00 80.474014 kg HEIGHT 2016-11-13 02:19:00 154.94 cm WEIGHT 2014-05-21 14:26:00 84.279485 kg HEIGHT 2014-05-21 14:26:00 162.56 cm Procedures Procedure Date / Time Performed Performing Clinicia n Source POCT GLUCOSE (AUTOMATED) 2024-11-06 21:49:00 Jesus Mares [facility] EXTERNAL PAP SMEAR 2021-05-10 21:01:00 Doctor Un assigned, Bearden [facility] Encounters Start Date/Time End Date/Time Encounter Type Admission Type Attending [facility] Care Facility Care Department Encounter ID Source 2024-07-19 17:06:00 Outpatient Butch Vo [facility] [id number] [facility] 2024-07-13 17:18:00 Outpatient Amy Handy [facility] HPNT [id number] [facility] 2024-03-25 10:40:01 Outpatient Amy Brand [facility] HP[facility] [id number] [facility] 2024-02-19 09:28:00 Outpatient Amy Brand HPNT HPNT [id number] [facility] 2024-01-24 11:05:01 Outpatient Amy Brand HPNT HPNT [id number] [facility] 2024-01-22 10:11:00 Outpatient Amy Brand HPNT HPNT [id number] [facility] 2023-12-17 15:21:00 Outpatient Amy Brand HPNT HPNT [id number] [facility] 2023-09-11 08:30:00 Outpatient RewButch HPNT HPNT [id number] [facility] 2023-08-21 13:25:00 Outpatient Butch Vo HPNT HPNT [id number] [facility] 2023-06-29 15:58:00 Outpatient GastonaramsilvaRadha dimas HPNT HPNT [id number] [facility] 2023-06-10 15:07:00 Outpatient Butch Vo HPNT HPNT [id number] [facility] 2023-03-14 13:03:05 Outpatient Butch Vo HPNT HPNT [id number] [facility] 2023-03-06 14:22:00 Outpatient Butch Vo HPNT HPNT [id number] [facility] 2023-01-30 09:31:01 Outpatient HPNT HPNT [id number] [facility] 2023-01-29 11:30:01 Outpatient HPNT HPNT [id number] [facility] 2022-09-24 09:15:03 Outpatient HPNT HPNT [id number] [facility] 2022-08-13 14:55:02 Outpatient HPNT HPNT [id number] [facility] 2022-08-01 17:43:00 Outpatient HPNT HPNT [id number] [facility] 2022-05-18 10:26:00 Outpatient HPNT HPNT [id number] [facility] 2022-02-12 11:09:02 Outpatient HPNT HPNT [id number] [facility] 2021-12-27 14:12:22 Outpatient HPNT HPNT [id number] [facility] oint 2021-12-27 14:05:30 Outpatient HPNT HPNT [id number] [facility] oint 2021-10-02 04:27:52 Emergency [facility] [id number] [facility] 2025-01-01 00:00:00 2025-01-01 11:32:51 [facility] [id number] [id number] [facility] 2024-12-29 00:00:00 2024-12-30 08:54:31 Telephone [facility] [place] [facility] [id number] [id number] [id number] [id number] [facility] 2024-11-20 00:00:00 2024-11-26 09:06:51 [facility] [place] [facility] [id number] [id number] [id number] [id number] [facility] 2024-11-18 15:15:00 2024-11-18 15:30:00 Refrigerator Repair Technician Visit Vtc-Lab Jesus Mares [facility]ALTY [place] [facility] [id number] 350.1.13.10 [id number] [id number] [facility] 2024-11-18 15:15:00 2024-11-18 15:15:00 Outpatient R JESUS MARES [facility] [id number] [facility] 2024-11-06 15:30:00 2024-11-06 16:10:54 Outpatient R JESUS MARES [facility] [id number] [facility] 2024-11-06 15:30:00 2024-11-06 16:10:54 [facility] [id number] [id number] [id number] [id number] [facility] 2024-05-02 10:24:00 2024-05-02 11:57:00 Emergency ER Lester, Zo [facility] [id number] [facility] 2023-12-16 18:00:00 2023-12-16 22:49:00 Emergency ER Will Lopez [facility] [id number] [facility] 2023-10-08 12:26:00 2023-10-08 15:35:00 Emergency ER Ena Duarte [facility] [id number] [facility] 2023-05-14 23:06:00 2023-05-14 23:55:00 Emergency ER Lester, Zo STLSJM STLS [id number] [facility] 2023-03-19 22:41:00 2023-03-19 23:35:00 Emergency ER Ena Duarte STLSJM STLS [id number] [facility] 2023-03-01 22:36:00 2023-03-01 23:45:00 Emergency ER Lester, Zo STLSJM STLSJ [id number] [facility] 2023-02-25 22:34:00 2023-02-26 02:11:00 Emergency ER Lester, Zo STLSJM STLSJM [id number] [facility] 2023-02-19 08:51:00 2023-02-19 08:52:00 Outpatient R Amy Brand STLSJX STLSJX [id number] [facility] 2023-02-12 00:00:00 2023-02-12 00:00:00 Outpatient Amy Brand STLSJX STLSJX [id number] [facility] 2022-12-03 16:37:00 2022-12-03 18:38:00 Emergency ER Timi Bolivar STLSM STLSM [id number] [facility] 2022-11-14 14:47:00 2022-11-14 15:53:00 Emergency ER Zo Batista [facility]LSM [facility] [id number] [facility] 2022-07-24 13:36:00 2022-07-24 14:06:00 Emergency ER Zo Batista [facility] [id number] [facility] 2022-05-28 11:36:00 2022-05-28 11:36:00 Outpatient Audrey_Ormb [facility] [id number] [facility] 2022-05-21 16:23:00 2022-05-21 17:30:00 Emergency ER Johann Steel STLS [facility] [id number] [facility] 2022-05-18 18:05:00 2022-05-18 19:05:00 Emergency ER Butch Ribeiro STLSM STLS [id number] [facility] 2022-04-10 19:00:00 2022-04-10 19:59:00 Emergency ER Zo Batista STLSJM STLS [id number] [facility] 2022-03-30 21:54:00 2022-03-30 22:35:00 Emergency ER Bhupinder Campos [facility] [id number] [facility] 2022-03-27 08:15:00 2022-03-27 09:31:00 Emergency ER Zo Batista [facility] [id number] [facility] 2022-03-11 00:29:00 2022-03-11 01:21:00 Emergency ER Johann Steel [facility] STLS [id number] [facility] 2022-02-28 00:00:00 2022-02-28 00:00:00 Case Management Sheryl Ruelas [id number] [id number] [id number] [id number] [facility] 2021-12-04 20:12:00 2021-12-06 19:55:00 Inpatient U Rakan Rodriguez STLSJX [id number] ST[facility]JX 2021-11-30 10:10:00 2021-11-30 10:11:00 Outpatient R Rakan Rodriguez STLSJX STLSJX [id number] [facility] 2021-10-29 20:08:00 2021-10-29 22:31:00 Outpatient U Rakan Rodriguez STLSJX STLSJX [id number] [facility] 2021-10-04 10:05:00 2021-10-04 16:20:00 Outpatient U Rakan Rodriguez STLSJX STLSJX [id number] [facility] 2021-09-20 09:21:00 2021-09-20 09:22:00 Outpatient R Rakan Rodriguez [facility]ERT[facility] [id number] [facility]ary jo 2021-08-22 14:53:00 2021-08-22 14:54:00 Outpatient Amy Daily STJX STJX [id number] STLSJX 2021-08-22 14:00:00 2021-08-22 14:00:00 [facility] [id number] [facility] Sean 2021-08-02 10:45:00 2021-08-02 10:45:00 Outpatient P [facility] [id number] [facility] 2021-07-16 09:48:00 2021-07-16 09:48:00 Emergency ER Sunday Berkowitz [facility] [id number] [facility] 2021-07-10 09:30:00 2021-07-10 09:30:00 Outpatient R BRET MARTINEZ [facility] [id number] [facility] 2021-06-19 08:18:45 2021-06-19 08:44:57 Refrigerator Repair Technician Visit Lab, [facility]Rm[facility] PRICING [facility] [id number] [id number] 2021-06-19 08:00:00 2021-06-19 08:00:00 Outpatient R DEVONTE FUENTES [facility] [id number] [facility] 2021-06-12 11:15:00 2021-06-12 11:15:00 Outpatient BRET ANDREWS [facility] [id number] [facility] 2021-06-06 08:00:00 2021-06-06 08:00:00 Outpatient R [facility] [id number] [facility] 2020-08-03 02:29:00 2020-08-03 02:29:00 Emergency ER Ke Damico [facility] [id number] [facility] 2017-05-05 23:33:00 2017-05-06 04:29:00 Emergency ER Jase Gilliland [facility] [id number] [facility] 2016-11-13 01:44:00 2016-11-13 08:15:00 Outpatient ER Rakan Rodriguez [facility] [id number] [facility] 2016-09-27 23:06:00 2016-09-27 23:56:00 Emergency ER Jase Gilliland [facility] [id number] [facility] 2016-09-04 10:41:00 2016-09-04 10:42:00 Outpatient Rakan Melvin [facility] [id number] [facility] 2016-08-22 11:13:00 2016-08-22 12:06:00 Emergency ER Sean Gary [facility] [id number] [facility] 2016-07-06 19:55:00 2016-07-06 22:03:00 Emergency ER Jase Gilliland [facility] [id number] [facility] 2014-05-21 15:28:00 2014-05-24 15:40:00 Inpatient U Demarco Temple [facility] [id number] [facility] 2014-05-07 15:21:00 2014-05-07 15:22:00 Outpatient Lizzie Benz Ricardo [facility] [id number] [facility] Results Test Description Test Time Test Comments Results Result Co mments [id number] 22:57:00* Test Item Value Reference Range Interpretation Comme nts Molecular Testing MM (test code = GCPCRSET) Not Detected NotDetected Molecular Testing MM (test code = PCRINTERP) Accurate results are dependent on adequate specimencollection, absence of inhibitors and sufficient DNA to bedetected. Acceptable specimens for this test are vaginal orendocervical swabs (self collected or clinician collected)Viability or infectivity can NOT be inferred since targetDNA may persist in the absence of viable organisms. Vaginitis Panel 3 by DNA [id number] 15:57:00* Test Item Value Reference Range Interpretation Comme nts Vaginitis Panel 3 by DNA Pro be (test code = VP3) VPIIICANDI Vaginitis Panel 3 by DNA Pro be (test code = VP31) N A Vaginitis Panel 3 by DNA Pro be (test code = VP31) VPIIITRICH A [id number] 11:40:00* Test Item Value Reference Range Interpretation [...] No Wet Prep Sources: VaginalSexual Assault Suspected? [id number] 11:18:00* Test Item Value Reference Range Interpretation [...] Pelvic or flank painUrine Source: Urine Clean [id number] 11:18:00* Test Item Value Reference Range Interpretation Comme nts Urinalysis (test code = UACRFLXNO) No Indications to order a Urinalysis: Pelvic or flank painUrine Source: Urine Clean [id number] 11:11:00* Test Item Value Reference Range Interpretation [...] (test code = PREGUSG) 1.042 1.002-1.036 H [id number] 19:58:00* Test Item Value Reference Range Interpretation [...] for Estimated GFR: Greater than 90 mL/min/1.73 j4Xlgatpnd eGFR is based on the CKD-EPI 2020 [...] code = ALT) 23 U/L 8-55 N [id number] 19:38:00* Test Item Value Reference Range Interpretation [...] code = BASO#) 0.1 thou/uL 0.0-0.2 N [id number] 19:20:00* Test Item Value Reference Range Interpretation [...] Urinalysis: Pelvic or flank painUrine Source: Urine [id number] 19:20:00* Test Item Value Reference Range Interpretation [...] (test code = PREGUSG) 1.026 1.002-1.036 N [id number] 19:20:00* Test Item Value Reference Range Interpretation Comme nts Urinalysis (test code = UACRFLXNO) No HIndications to order a Urinalysis: Pelvic or flank painUrine Source: Urine [id number] 14:41:00* Test Item Value Reference Range Interpretation Comme nts Coagulation (test code = DDIMTT) 0.38 *mcg/mL 0.27-0.43 N * Reference Rang e Units: mcg/mL of fibrinogen equivalent units(FEU)Based upon a retrospective study of [facility] patients in April 2006, a result of"Less than 0.44 mcg/mL FEU" is predictive of the absence ofa DVT or PE. [id number] 14:28:00* Test Item Value Reference Range Interpretation Comme nts Chemistry (test code = CRP) 0.59 mg/dL See_Comment H [Automated messa ge] The system which generated this result transmitted reference range: = or < 0.5. The reference range was not used to interpret this result as normal/abnormal. SWhat test does the doctor want? C-REACTIVE PROTEIN (CRP)[id number] 13:58:00* Test Item Value Reference Range Interpretation [...] Pelvic or flank painUrine Source: Urine Clean [id number] 13:58:00* Test Item Value Reference Range Interpretation Comme nts Urinalysis (test code = UACRFLXNO) No HIndications to order a Urinalysis: Pelvic or flank painUrine Source: Urine Clean [id number] 13:52:00* Test Item Value Reference Range Interpretation [...] 1.020 1.002-1.036 N HCulture, Strep Group A [id number] 16:47:00* Test Item Value Reference Range Interpretation Comme nts Culture, Strep Group A Rflx (test code = STRPACULT) STRPCULT Culture, Strep Group A Rflx (test code = STRPACULT1) N Strep Group A [id number] 23:49:00* Test Item Value Reference Range Interpretation Comme nts Strep Group A Screen (test c ode = STRP) STRPANEG1 Strep Group A Screen (test c ode = STRP1) N Strep Group A Screen (test c ode = STRP1) STRPTH TONS HChemistry - [id number] 23:21:00* Test Item Value Reference Range Interpretation Comme nts Chemistry - Specials (test code = BHCGST) Negative NEGATIVE Method of s ensitivity- Indeterminant: results should be repeated after 48-72 hrs Positive: results may be detected as early as 1 day after the first missed menses. [id number] 23:01:00* Test Item Value Reference Range Interpretation Comme [facility] (test code = HGBT) 12.5 g/dL 12.0-16.0 N Hematology (test code = HCTT) 39.4 % 36.0-47.0 N Rbaoyjnchf4939-13-30 12:05:00* Test Item Value Reference Range Interpretation [...] Adequate Hematology (test code = MC) Normal Xzsrbluea9225-10-52 02:02:00* Test Item Value Reference Range Interpretation Comme nts Chemistry (test code = TROPI-T) Less than 0.010 ng/mL < 0.028 Byrmiapfl7166-91-33 23:23:00* Test Item Value Reference Range Interpretation Comme nts Chemistry (test code = TROPI-R) Less than 0.010 ng/mL < 0.028 * Reference Range 0.00 - 0.028 ng/mL Negative 0.029 - 0.29 ng/mL Indeterminate Greater or Equal to 0.3 ng/mL Strongly suggests [place] Chemistry - BNP, HgbA1c, PKOi3556-96-11 23:23:00* Test Item Value Reference Range Interpretation Comme nts Chemistry - BNP, HgbA1c, PTHi (test code = BNP) Less than 10.0 pg/mL 0-100 N Toqbjshuq6254-94-49 23:22:00* Test Item Value Reference Range Interpretation [...] for Estimated GFR: Greater than 90 mL/min/1.73 z3Mckpqlnp eGFR is based on the CKD-EPI 2020 [...] code = ALT) 15 U/L 8-55 N Qxotppkto4531-24-85 23:22:00* Test Item Value Reference Range Interpretation Comme nts Chemistry (test code = MG-T) 2.1 mg/dL 1.6-2.6 N Rcbghxpxdyz6807-57-59 23:20:00* Test Item Value Reference Range Interpretation Comme nts Coagulation (test code = DDIMTT) 0.33 *mcg/mL 0.27-0.43 N * Reference Rang e Units: mcg/mL of fibrinogen equivalent units(FEU)Based upon a retrospective study of [facility] patients in April 2006, a result of"Less than 0.44 mcg/mL FEU" is predictive of the absence ofa DVT or PE. Chemistry - Kznoumfd5417-97-05 23:12:00* Test Item Value Reference Range Interpretation Comme nts Chemistry - Specials (test code = BHCGST) Negative NEGATIVE Method of s ensitivity- Indeterminant: results should be repeated after 48-72 hrs Positive: results may be detected as early as 1 day after the first missed menses. Strep Group A Ittdyh1579-62-81 18:06:00* Test Item Value Reference Range Interpretation Comme nts Strep Group A Screen (test c ode = STRP) STRPTH A Strep Group A Screen (test c ode = STRP1) P A Chemistry - Pdujpokn4057-68-90 15:34:00* Test Item Value Reference Range Interpretation Comme nts Chemistry - Specials (test code = BHCGST) Negative NEGATIVE Method of s ensitivity- Indeterminant: results should be repeated after 48-72 hrs Positive: results may be detected as early as 1 day after the first missed menses. Ohjgveqhrx9975-94-10 15:25:00* Test Item Value Reference Range Interpretation Comme nts Hematology (test code = HGBT) 13.3 g/dL 12.0-16.0 N Hematology (test code = HCTT) 40.7 % 36.0-47.0 N Molecular Testing IY8034-26-20 15:01:00* Test Item Value Reference Range Interpretation Comme nts Molecular Testing MM (test code = [id number]) DETECTED NotDetected AA Results called t o: AW2@1501Results called and verbally verified through "read-back".by Neena Shea on 07/24/22 at 1500.Performance of the Cepheid SARS-CoV-2 has only beenestablished in nasopharyngeal swab specimens. This testcannot rule out diseases caused by other bacterial or viralpathogens.[employer] has been provided an FDA EUA that [...] Test: UnknownHospitalized: UnknownICU: UnknownDate of Symptom Onset: [id number]: UnknownReason for Testing: PUI -SymptomaticSource: Nasopharyngeal SwabSymptomatic as defined by CDC: XxuysbzXgzxjhowlf2512-24-99 18:49:00* Test Item Value Reference Range Interpretation [...] = UABLD) Negative Negative Urine Source: Urine CvqfxhHztvhdzeaq0400-42-01 18:49:00* Test Item Value Reference Range Interpretation [...] this result as normal/abnormal. Urine Source: Urine CgkpzsMvwqpkijpg0799-48-53 18:45:00* Test Item Value Reference Range [facility] Ur[facility] (test code = BHCGUT) Negative [...] (test code = PREGUSG) 1.046 1.002-1.036 H Otiveuzcv2082-53-02 15:02:00* Test Item Value Reference Range Interpretation [facility] Chemistry (test code = [id number]) H F GLU 99 Col: 1 0925 [...] January 2010. Is patient fasting? YMolecular Testing MH1629-47-36 17:48:00* Test Item Value Reference Range Interpretation [facility] Molecular Testing MM (test code = COVIDNAAT) [...] code = COVIDSOURCEMM) Nasopharyngeal Swab Resident in Congregate Care Setting: NoEmployed in Healthcare: NoFirst Test: NoHospitalized: NoICU:NoDate of Symptom Onset: [id number]: UnknownReason for Testing: PUI -SymptomaticSource: Nasopharyngeal SwabSymptomatic as defined by CDC: YesCulture, Jxasq4444-60-44 10:14:00* Test Item Value Reference Range Interpretation Comme nts Culture, Urine (test code = URC) NF N Culture, Urine (test code = URC1) 25 MSF N Chemistry - Fjxtqkax6029-58-64 01:45:00* Test Item Value Reference Range Interpretation Comme nts Chemistry - Specials (test c ode = TSH3) 1.2111 uIU/mL 0.35-4.94 N Ihelterss1462-04-38 01:41:00* Test Item Value Reference Range Interpretation Comme nts Chemistry (test code = AMERICO) 28.0 U/L 25-125 N Hlfuurfjy4830-58-29 01:41:00* Test Item Value Reference Range Interpretation Comme nts Chemistry (test code = LIP) 7 U/L 8-78 L Xiftesmet1777-00-76 01:41:00* Test Item Value Reference Range Interpretation Comme nts Chemistry (test code = ACET-T) Less than [...] Toxic: 50 - 100 mg/dL Depression of RESPONDER: Greater than 100 mg/dL Fatalities reported: Greater than 400 mg/dL Chemistry (test code = SALCY) Less than 8.0 mg/dL 15.0-30.0 L Jjlhtahifr6950-56-87 01:32:00* Test Item Value Reference Range Interpretation Comme nts Hematology (test code = WBCT) 10.8 thou/uL [...] BASO#) 0.1 thou/uL 0.0-0.2 N Chemistry - Qoncturn4216-68-68 01:32:00* Test Item Value Reference Range Interpretation Comme nts Chemistry - Specials (test code = HCGQ) [...] 2 - 3 months 10,000 - 100,000 Ekqwwcpzs4267-53-04 01:24:00* Test Item Value Reference Range Interpretation Comme nts Chemistry (test code = NA-T) 140 mmol/L [...] code = ALT) 14 U/L 8-55 N Ntbxsxnphu3591-84-16 01:20:00* Test Item Value Reference Range Interpretation [...] AMORPH URATES HPF Negative Urine Source: Urine HaqzdeRdycdqzufz7122-26-72 01:18:00* Test Item Value Reference Range Interpretation [...] NotDetected Toxicology (test code = MTCUTOFF) The Cumulocity Profile-V Panel for Qualitative Drugs ofAbuse assays [...] Source: Urine VoidedCT Abdomen Pelvis W Con [facility] : 1995 [facility] BRIANA P[facility] Cross Phys: [place] [address] : 1995 Age: 28 SEX:F [phone] Exam Date: 12/16/23 Status: REG ER Acct: [id number] Loc: [facility] Pt Unit #: [id number] Report #: [id number] CC: Will Lopez MD PULSECHECKSJX:[id number] CAT SCAN REPORT Report Status: Signed Order # Category/Exam [id number] CT/CT Abdomen Pelvis W Con ([id number]): . Results EXAM: CT ABDOMEN AND PELVIS [...] No biliary ductal dilatation. SPLEEN: No splenomegaly. PANCREAS: No focal masses or ductal dilatation. ADRENALS: No adrenal nodule. KIDNEYS/URETERS: 1 cm simpleappearing cyst within the left kidney midpole. No hydronephrosis, stones or solid mass lesion. PERIT ONEUM/RETROPERITONEUM: Stranding within the left anterior abdominal fat (axial image 45). Epiploic appendicitis would be a consideration. LYMPH NODES: No lymphadenopathy. VESSELS: Unremarkable. GI TRACT: Diverticulosis without CT evidence of diverticulitis. No free [...] 12/16/232101 Transcribed Date/Time:XR Knee Rt 4 View STANDARDCHI COX WAL[facility] LAWNVILLEName: BRIANA PARRISH JAN : 1995 [facility] Pt Name: BRIANA PARRISH [address] Cross Phys: Ena Duarte [facility] [place] [place] [address] : 1995 Age: 27 SEX:F [phone] Exam Date: 03/19/23 Status: DEP ER Acct: [id number] Loc: [facility] Pt Unit #: [id number] Report #: [id number] CC: Ena Duarte MD IMAGING SERVICES REPORT Report Status: Signed Order # Category/Exam [id number] RAD/XR Knee Rt 4 View STANDARD ([id number]): . Results Radiograph right knee 4 views: [...] Signed Date/Time: 03/20/23100 Technologist: KALI Dictated Date/Time: 03/20/2399 Transcribed Date/Time:XR Chest 1 View PortableCHI [facility]ALTHS[facility]Name: [facility] : 1995 [facility] Pt Name: BRIANA PARRISH [address] Cross Phys: [place] [address] : 1995 Age: 27 SEX:F [phone] Exam Date: 02/25/23 Status: REG ER Acct: [id number] Loc: [facility] Pt Unit #: [id number] Report #: [id number] CC: Zo Batista DO IMAGING SERVICES REPORT Report Status: Signed Order # Category/Exam [id number] RAD/XR Chest 1 View Portable ([id number]): . Results RADIOGRAPH CHEST 1 VIEW: DATE: 02/25/2023 HISTORY: Chest pain FINDINGS: There are no airspace densities, pulmonary edema, pneumothorax, or cardiomegaly. The lateral costophrenic angles are sharp. IMPRESSION: No acute cardiopulmonary findings. Reported By: Rakesh Barrios MD Electronically Signed Date/Time: Technologist: ELZBIETA Dictated Date/Time: 02/25/232301 Transcribed Date/Time:US Breast Limited Lt Name: BRIANA PARRISH : 1995 Sex: F Pt Name: BRIANA PARRISH Phys: Amy Brand [employer] , : 1995 Age: 27 SEX:F Exam Date: 02/19/23 Status: REG CLI Acct: [id number] Loc: [facility] Pt Unit #: [id number] Report #: [id number] CC: Amy Brand NP ULTRASOUND REPORT Report Status: Signed Order # Category/Exam [id number] ULT/US Breast Limited Lt ([id number]): . Results US Breast Limited Lt History: [...] 1007 Technologist: Dictated Date/Time: 02/19/23 0938 Transcribed Date/Time: OB Ltd Name: BRIANA PARRISH : 1995 Sex[facility] Pt Name: BRIANA PARRISH [address] Phys: [place] [address] : 1995 Age: 26 SEX:F Exam Date: 10/04/21 Status: REG [facility] [place]ct: [id number] Loc: [facility]/OP Pt Unit #: [id number] Report #: [id number] CC: Mariana Vega DO ULTRASOUND REPORT Order # Category/Exam [id number] ULT/US OB Ltd ([id number]): . Results EXAM: US OB Ltd 10/04/2021 11:47AM HISTORY: CSH . H/O Leaking fluid, needs [...] diameter: 7.38cm, 29 weeks 4 days, Not calculated.. Head circumference: 27.15 cm, 29 weeks 4 days, Not calculated. Abdominal circumference: 25.62 cm, 29 weeks 6 days, Not calculated. Femoral length: 5.49cm, 29 weeks 0 days, Not calculated. Estimated weight: 1403 g +/- 210.52g (3 lbs. 1 oz. +/- 7 ounces), Not calculated. The average gestational age by ultrasound is 29 weeks 4 days +/- 2 weeks 0 dayswith estimated due date of 12/16/2021. The estimated dates by clinical data is 29 weeks 2 dayswith estimated due date of 12/18/2021. IMPRESSION: 1. Single live intrauterine gestation with size and dates as above. 2. EDILIA: 6.93 cm on today's exam. Previously measuring 8.3 cm on 08/22/2021 comparison. Reported By: Jose Gibson MD Electronically Signed Date/Time: 10/04/21 1225 Technologist: CHANTAL Dictated Date/Time: 10/04/21 1218 Transcribed Date/Time:US OB Complete STANDARD Name: BRIANA PARRISH : 1995 Sex[facility] Pt Name: BRIANA PARRISH [address] [facility] Phys: [place] [address] : 1995 Age: 26 SEX:F Exam Date: 08/22/21 Status: REG CLI Acct: [id number] Loc: [facility] Pt Unit #: [id number] Report #: [id number] CC: Amy Brand NP ULTRASOUND REPORT Order # Category/Exam [id number] ULT/US OB Complete STANDARD ([id number]): . Results EXAM: Completeobstetrical ultrasound HISTORY: Encounter [...] Normal appearing. Three-vessel CORD: Normal appearing. The average gestational age by ultrasound is 23 weeks 1 [...] age. A follow-up examination would be helpful to document interval growth. Reported By: Harris Reid MD Electronically Signed Date/Time: 08/22/21 1558 Technologist: Dictated Date/Time: 08/22/21 1554 Transcribed Date/Time: Notes Date/Time Note Provider Source 2025-01-01 11:31:16 Form received: [facility] PA: Ozemphaseeb 0.25/0.5 mg PA Approved Approval dates: 12/30/2024- 12/30/2025 ER FIXER Iqra Vega RN [facility] 2024-12-30 08:51:59 MORA completed Sheth [id number] Pending determination [facility] Rufino Harris RN [facility] 2024-12-29 16:05:58 Images from the original note were not included. [facility] Erica Hyman [facility] 2024-11-18 15:15:00 Images from the original note were not included. Patient has been identified by and was provided with cup, antiseptic towelette, and clean catch instructions. 1 urine specimen(s) sent. Unpreserved 1 Urine Culture Aptima tube Other urine [facility] 2024-11-06 15:30:00 Addended by: JESUS MARES on: 11/11/2024 05:34 PM Modules accepted: Orders [facility] 2021-10-29 20:56:00 [facility] Name: BRIANA PARRISH [address] [facility] : 1995, Age: 26, Sex: [place] [address] Unit #: [id number], Status: [place] [facility] Location: HLD/OP Report Dict DrTennille: Georgia Cotton MD Admission Date: Report #: [id number] Discharge Date: CC: Labor and Delivery H [...] gravid Extremeties: no edema FHT: category 1 [place] contractions every: none - Assessment 26 at [...] 10/29/21 2158 Georgia Cotton STLSJX 2021-10-04 11:46:00 [facility] Name: BRIANA PARRISH [address] [facility] : 1995, Age: 26, Sex: [place] [address] Unit #: [id number], Status: REG [facility] Location: [facility]/OP Report Dict DrTennille: Mariana Vega DO Admission Date: Report #: [id number] Discharge Date: CC: Labor and Delivery H P Labor and Delivery H P Chief complaint: loss of fluid, decreased movement (States she felt leaking yesterday. Noted that it was clear to yellow.), other (Noted some blood when she wiped. She started having vaginal pressure at the same time.) HPI: 26yo EDC [id number] presents for vaginal bleeding and decreased movement. [...]
--- NOTE | 2025-01-12 19:42 | ER ---
Nurse's Notes [facility] Name: Nina Parrish Age: 29 yrs Sex: Female : 1995 Arrival Date: 01/12/2025 Time: 18:58 Bed Waiting Private MD: Diagnosis: ED Course: 01/12 19:00 Patient arrived in ED. im 19:02 Ari[facility]aredes FNP-C [facility] kb 19:02 Ernesto Ingram MD is Attending Physician. kb 19:38 Patient's name was called from [facility]. Unable to locate patient. Will disposition as cm10 left without being seen by a provider. Administered Medications: No medications were administered Outcome: 19:41 Patient left the ED. cm10 Signatures: Ariela Paredes FNP-C FNP-Ckb Mendoza, Itzel im Martinez, Clarissa, RN RN cm10
== END 2025-01-12 19:41 | disposition left against medical advice (07) ==
LOC: ER 18:58
DX: Z02.9 Encounter for administrative examinations, unspecified (principal)

== ENCOUNTER 2025-01-14 06:16 | Emergency (ER) | payer OTHER ==
--- OUTSIDE RECORDS SUMMARY | 2025-01-14 06:20 | XMS REPORT | Continuity of Care Document ---
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 Resident in Congregate Care Setting: NoEmployed in Healthcare: NoFirst Test: NoHospitalized: NoICU:NoDate of Symptom Onset: [id number]: UnknownReason for Testing: PUI -SymptomaticSource: Nasopharyngeal SwabSymptomatic as defined by CDC: YesCulture, Fyjwm0779-63-67 10:14:00* Test Item Value Reference Range Interpretation Comme nts Culture, Urine (test code = URC) NF N Culture, Urine (test code = URC1) 25 MSF N Chemistry - Nixuttwr5481-01-90 01:45:00* Test Item Value Reference Range Interpretation Comme nts Chemistry - Specials (test c ode = TSH3) 1.2111 uIU/mL 0.35-4.94 N Ggcdpxbwh5919-22-96 01:41:00* Test Item Value Reference Range Interpretation Comme nts Chemistry (test code = AMERICO) 28.0 U/L 25-125 N Cjrasqzzi7028-21-60 01:41:00* Test Item Value Reference Range Interpretation Comme nts Chemistry (test code = LIP) 7 U/L 8-78 L Tisrpzmbd1543-78-45 01:41:00* Test Item Value Reference Range Interpretation [...] Toxic: 50 - 100 mg/dL Depression of [employer]: Greater than 100 mg/dL Fatalities reported: Greater than 400 mg/dL Chemistry (test code = SALCY) Less than 8.0 mg/dL 15.0-30.0 L Okvjvsvcez1394-93-95 01:32:00* Test Item Value Reference Range Interpretation [...] BASO#) 0.1 thou/uL 0.0-0.2 N Chemistry - Glawlpmm2877-75-98 01:32:00* Test Item Value Reference Range Interpretation [...] 2 - 3 months 10,000 - 100,000 Tktnlbnrs9297-04-15 01:24:00* Test Item Value Reference Range Interpretation [...] code = ALT) 14 U/L 8-55 N Enshfdlegr2144-96-12 01:20:00* Test Item Value Reference Range Interpretation [...] AMORPH URATES HPF Negative Urine Source: Urine SjqlldYfxadpeczn7376-17-25 01:18:00* Test Item Value Reference Range Interpretation [...] NotDetected Toxicology (test code = MTCUTOFF) [employer] Profile-V Panel for Qualitative Drugs ofAbuse assays [...] Source: Urine VoidedCT Abdomen Pelvis W Con [facility] : 1995 Sex: FRUTH ANN [facility] Pt Name: BRIANA PARRISH Cross Phys: [place] [address] : 1995 Age: 28 SEX:F [phone] Exam Date: 12/16/23 Status:REG ER Acct: [id number] Loc: [facility] Pt Unit #: [id number] Report #: [id number] CC: Will Lopez MD PULSECHECKSJX:[id number] CAT SCAN REPORT Report Status: Signed Order # Category/Exam [id number] CT/CT Abdomen Pelvis W Con ([id number]): . Results EXAM: CT ABDOMEN AND PELVIS [...] No hydronephrosis, stones or solid mass lesion. PERITON EUM/RETROPERITONEUM: Stranding within the left anterior abdominal fat (axial image 45). Epiploic appendicitis would be a consideration. LYMPH NODES: No lymphadenopathy. VESSELS: Unremarkable. GI TRACT: Diverticulosis without CT evidence of diverticulitis. No free fluid or free air. No distention orwall thickening. BONES AND SOFT TISSUES: Unremarkable. IMPRESSION: [...] 12/16/232101 Transcribed Date/Time:XR Knee Rt 4 View [facility] : 1995 [facility] Pt Name: BRIANA PARRISH [address] Cross Phys: [place] [address] : 1995 Age: 27 SEX:F [phone] Exam Date: 03/19/23 Status: DEP Acct: [id number] Loc: [facility] Pt Unit #: [id number] Report #: [id number] CC: Ena Duarte MD IMAGING SERVICES REPORT Report Status: Signed Order # Category/Exam [id number] RAD/XR Knee Rt 4 View STANDARD ([id number]): . Results Radiograph right knee 4 views: HISTORY: 27-year-old female with acute on chronic right knee pain FINDINGS: Difficult to evaluate for joint effusion because of overlying clothing. There is probably edema in Hoffa's fat pad. No fracture or dislocation. Joint spaces are maintained without erosions or osteophytes. No destructive osseous lesion. IMPRESSION: 1. No osseou s abnormality. 2. Edema in Hoffa's fat pad and questionable joint effusion. Reported By: Rakesh Barrios MD Electronically Signed Date/Time:03/20/23 010 Technologist: IMAG.VE Dictated Date/Time: 03/20/23 0100 Transcribed Date/Time:XR Chest 1 View Portable [facility] : 1995 [facility] Pt Name: BRIANA PARRISH [address] Cross Phys: [place] [address] : 1995 Age: 27 SEX:F [phone] Exam Date: 02/25/23 Status: REG ERAcct: [id number] Loc: [facility] Pt Unit #: [id number] Report #: [id number] CC: oZ Batista DO IMAGING SERVICES REPORT Report Status: Signed Order # Category/Exam [id number] RAD/XR Chest 1 View Portable ([id number]): . Results RADIOGRAPH CHEST 1 VIEW: DATE: [...] Pt Name: BRIANA PARRISH Phys: Amy Brand [employer] , : 1995 Age: 27 SEX:F Exam Date: 02/19/23 Status: REG CLI Acct: [id number] Loc: [facility] Pt Unit #: [id number] Report #: [id number] CC: Amy Brand NP ULTRASOUND REPORT Report Status: Signed Order # Category/Exam [id number] ULT/US Breast Limited Lt ([id number]): . Results US Breast Limited Lt History: [...] Name: BRIANA PARRISH : 1995 [facility] Pt Name: BRIANA PARRISH [address] [facility] Phys: [place] [address] : 1995 Age: 26 SEX:F Exam Date: 10/04/21 Status: REG [facility] Acct: [id number] Loc: C[facility]/OP Pt Unit #: [id number] Report #: [id number] CC: Mariana Vega DO ULTRASOUND REPORTOrder # Category/Exam [id number] ULT/US OB Ltd ([id number]): . Results EXAM: US OB Ltd 10/04/2021 11:47 AM HISTORY: CSH . H/O [...] Jose Gibson MD Electronically Signed Date/Time: 10/04/21 1225Technologist: CHANTAL Dictated Date/Time: 10/04/21 1218 Transcribed Date/Time:US OB Complete STANDARD Name: BRIANA PARRISH : 1995 Sex[facility] Pt Name: BRIANA PARRISH JAN [address] [facility] Phys: [place] [address] : 1995 Age: 26 SEX:F Exam Date: 08/22/21 Status: REG CLI Acct: [id number] Loc: [facility] Pt Unit #: [id number] Report #: [id number] CC: Amy Brand NP ULTRASOUND REPORT Order # Category/Exam [id number] ULT/US OB Complete STANDARD ([id number]): . Results EXAM: Completeobstetrical ultrasound HISTORY: Encounter [...] Note Provider Source 2025-01-01 11:31:16 Form received: [facility] PA: Ozempic 0.25/0.5 mg PA Approved Approval dates: 12/30/2024- 12/30/[address] [facility] 2024-12-30 08:51:59 MORA completed [facility] AG40MPGH Pending determination [facility] Rufino Harris RN [facility] 2024-12-29 16:05:58 Images from the original note were not included. [facility] Erica Hyman [facility] 2024-11-18 15:15:00 Images from the original note were not included. Patient has been identified by and was provided with cup, antiseptic towelette, and clean catch instructions. 1 urine specimen(s) sent. Unpreserved 1 Urine Culture Aptima tube Other urine [facility] 2024-11-06 15:30:00 Addended by: JESUS MARES on: 11/11/2024 05:34 PM Modules accepted: Orders [facility] 2021-10-29 20:56:00 [facility] Name: BRIANA PARRISH [address] [place] [address] : 1995, Age: 26, [place]: [place] [address] Unit #: [id number], Status: REG [facility] Location: HLD/OP Report Dict DrTennille: Georgia Cotton MD Admission Date: Report #: [id number] Discharge Date: CC: Labor and Delivery H [...] gravid Extremeties: no edema FHT: category 1 [place] contractions every: none - Assessment 26 at [...] 10/29/21 2158 Georgia Cotton STLSJX 2021-10-04 11:46:00 [facility] Name: BRIANA PARRISH [address] [facility] : 1995, Age: 26, [place]: [place] [address] Unit #: [id number], Status: REG [facility] Location: CSHLD/OP Report Dict DrTennille: Mariana Vega DO Admission Date: Report #: [id number] Discharge Date: CC: Labor and Delivery H [...] - Mother (cervical), PGM (breast) Current medications: pre- vitamins Previous surgical history: dilation and curettage, [...] <Electronically signed by Mariana Vega DO> 10/04/21 8044 [facility]iana [facility]ega [facility]
[2025-01-14] MEDS ORDERED: ONDANSETRON 4 MG/2 ML VIAL ONE (07:10)
[2025-01-14] MEDS ORDERED: NA CHLORIDE 0.9% 1,000 ML ONE (07:11)
[2025-01-14] MEDS ORDERED: guaiFENesin 100 MG/5 ML UCUP ONE (07:11)
[2025-01-14] MEDS ORDERED: KETOROLAC 30 MG/ML INJ ONE (07:11)
[2025-01-14 07:40] LABS: Specific Gravity 1.024 (1.005-1.030); Urine Bacteria None Seen /HPF (<20); Urine Bilirubin NEGATIVE (Negative); Urine Blood Trace (Negative); Urine Clarity Turbid (Clear); Urine Color Light-Yellow (Yellow); Urine Culture Reflex Order NOT NEEDED; Urine Glucose NEGATIVE (Negative); Urine Ketones NEGATIVE (Negative); Urine Micro Reflex YN NO BILL MICROSCOPIC; Urine Mucus Slight /HPF (None Seen); Urine Nitrite NEGATIVE (Negative); Urine Protein NEGATIVE (Negative); Urine RBC <5 /HPF (None Seen); Urine Urobilinogen Normal (Normal); Urine WBC <5 /HPF (<5)
--- NOTE | 2025-01-14 08:00 | ER ---
Nurse's Notes [facility] Name: Nina Parrish Age: 29 yrs Sex: Female : 1995 Arrival Date: 01/14/2025 Time: 06:16 Bed 6 Private MD: Diagnosis: Viral infection, unspecified Presentation: 01/14 07:09 Chief complaint:. Coronavirus screen: Client denies travel out of the [place] in the last kc6 14 days. At this time, the client does not indicate any symptoms associated with coronavirus-19. Ebola Screen: Patient negative for fever greater than or equal to 101.5 degrees Fahrenheit, and additional compatible Ebola Virus Disease symptoms Patient denies exposure to infectious person. Patient denies travel to an Ebola-affected area in the 21 days before illness onset. No symptoms or risks identified at this time. Initial Sepsis Screen: Does the patient meet any 2 criteria? No. Patient's initial sepsis screen is negative. Does the patient have a suspected source of infection? No. Patient's initial sepsis screen is negative. Risk Assessment: Do you want to hurt yourself or someone else? Patient reports no desire to harm self or others. Onset of symptoms was January 13, 2025. 07:09 Method Of Arrival: Ambulatory [facility] 07:09 Acuity: OMAIRA 3 kc6 Triage Assessment: 07:10 General: Appears in no apparent distress. comfortable, Behavior is calm, cooperative, kc6 appropriate for age. Pain: Denies pain. 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 - Infectious Disease History:: Denies. - Family history:: not pertinent. - Social history:: Smoking status: Patient denies any tobacco usage or history of. Screenin:[facility] ED Fall Risk Assessment (Adult) History of falling in the last 3 months, kc6 including since admission No falls in past 3 months (0 pts) Confusion or Disorientation No (0 pts) Intoxicated or Sedated No (0 pts) Impaired Gait No (0 pts) Mobility Assist Device Used No (0 pt) Altered Elimination No (0 pt) Score/Fall Risk Level 0 - 2 = Low Risk Oriented to surroundings, Maintained a safe environment, Educated pt \T\ family on fall prevention, incl call for assistance when getting out of bed. Abuse screen: Denies threats or abuse. Denies injuries from another. Nutritional screening: No deficits noted. Tuberculosis screening: No symptoms or risk factors identified. Assessment: 08:29 General: Appears in no apparent distress. comfortable, well groomed, well developed, kc6 Behavior is calm, cooperative, appropriate for age, Reports feeling ill for 1-2 days. Neuro: Level of Consciousness is awake, alert, obeys commands, Oriented to person, place, time, situation, Appropriate for age Reports headache. Cardiovascular: Capillary refill < 3 seconds. Respiratory: Airway is patent Trachea midline Respiratory effort is even, unlabored, Respiratory pattern is regular, symmetrical. GI: Abdomen is flat, non-distended, Bowel sounds present X 4 quads. Abd is soft and non tender X 4 quads. Reports nausea, vomiting, Patient currently denies abdominal pain, diarrhea. : No signs and/or symptoms were reported regarding the genitourinary system. Urine is clear. EENT: Reports nasal congestion pain when swallowing. Derm: No signs and/or symptoms reported regarding the dermatologic system. Skin is intact, is healthy with good turgor, Skin is pink, warm \T\ dry. Musculoskeletal: No signs and/or symptoms reported regarding the musculoskeletal system. Circulation, motion, and sensation intact. Range of motion: intact in all extremities. Vital Signs: 07:09 BP 123 / 87; Pulse 91; Resp 18; Temp 98.5; Pulse Ox 97% ; Weight 97.52 kg; Height 5 ft. kc6 1 in. ; Pain 0/10; 07:09 Body Mass Index 40.62 (97.52 kg, 154.94 cm) kc6 07:09 Pain Scale: Adult kc6 [place] Coma Score: 06:43 Eye Response: spontaneous(4). Motor Response: obeys commands(6). Verbal Response: sp4 oriented(5). Total: 15. ED Course: 06:18 Patient arrived in ED. jj6 06:34 Zion Becerra MD is Attending Physician. sp4 06:37 Liberty Nugent is Primary Nurse. cp4 07:00 Inserted saline lock: 22 gauge in right antecubital area, using aseptic technique. cp4 Flushed with 10 mL NS. 07:03 Attending Physician role handed off by Zion Becerra MD ec2 07:03 Rafal Mclain MD is Attending Physician. ec2 07:10 Triage completed. kc6 07:10 Arm band placed on right wrist. kc6 07:33 IV discontinued, intact, bleeding controlled, No redness/swelling at site. Pressure kc6 dressing applied. Inserted saline lock: 22 gauge in left antecubital area, using aseptic technique. Flushed with 10 mL NS. 07:33 Patient has correct armband on for positive identification. Bed in low position. Call kc6 light in reach. Side rails up X 1. Pulse ox on. NIBP on. Door closed. Noise minimized. Lights dimmed. Warm blanket given. Pillow given. 07:34 Urine collected: clean catch specimen, clear. kc6 08:30 No provider procedures requiring assistance completed. IV discontinued, intact, kc6 bleeding controlled, No redness/swelling at site. Pressure dressing applied. Administered Medications: 07:33 Drug: NS 0.9% IV 1000 ml IV at 1 bolus Per protocol; to be given as a bolus over 60 kc6 minutes Route: IV; Rate: 1 bolus; Site: left antecubital; 08:28 Follow up: Response: No adverse reaction; IV Status: Completed infusion; IV Intake: kc6 1000ml 07:33 Drug: Ondansetron IVP 8 mg IVP once; over 2 minutes Route: IVP; Site: left antecubital; kc6 08:28 Follow up: Response: No adverse reaction kc6 07:33 Drug: Ketorolac IVP 30 mg IVP once Route: IVP; Site: left antecubital; kc6 08:28 Follow up: Response: No adverse reaction kc6 07:33 Drug: Dextromethorphan-Guaifenesin PO Liquid 10 mg-100 mg/5 mL 20 ml PO once Route: PO; kc6 08:28 Follow up: Response: No adverse reaction kc6 Medication: 08:30 VIS not applicable for this client. kc6 Intake: 08:28 IV: 1000ml; Total: 1000ml. kc6 Outcome: 07:59 Discharge ordered by . ec2 08:30 Discharged to home ambulatory, kc6 08:30 Condition: good 08:30 Discharge instructions given to patient, Instructed on discharge instructions, follow up and referral plans. medication usage, Demonstrated understanding of instructions, follow-up care, medications, Prescriptions given X 2, 08:30 Patient left the ED. kc6 Signatures: Liliam Tee Kaitlyn RN RN kc6 Zion Becerra MD MD sp4 Rafal Mclain MD MD ec2 Liberty Nugent 4 Corrections: (The following items were deleted from the chart) 07:11 07:10 PSHx: D\T\C; kc6 kc6
--- NOTE | 2025-01-14 08:00 | EDPHYS ---
Physician Documentation [facility] Name: iNna Parrish Age: 29 yrs Sex: Female : 1995 Arrival Date: 01/14/2025 Time: 06:16 Bed 6 Private MD: ED Physician Rafal Mclain HPI: 01/14 06:34 This 29 yrs old Female presents to ER via Unassigned with complaints of Flu sp4 Symptoms. 06:43 29-year-old female employee of [employer] presents with acute onset of fever, sore sp4 throat, cough, chills, vomiting. [employer]: 07:10 LMP 12/2024, unknown kc6 Historical: - Allergies: 07:10 shrimp; kc6 - PMHx: 07:10 depressive disorder; diabetes mellitus; Hypercholesterolemia; kc6 - PSHx: 07:10 colposcopy; D\T\C; kc6 - Immunization history:: Adult Immunizations up to date. - Infectious Disease History:: Denies. - Family history:: not pertinent. - Social history:: Smoking status: Patient denies any tobacco usage or history of. ROS: 06:43 Constitutional: Positive fever, positive chills, positive cough, positive congestion, sp4 positive vomiting 06:43 All other systems are negative, Exam: 06:43 Constitutional: This is a well developed, well nourished patient who is awake, alert, sp4 and in no acute distress. Head/Face: Normocephalic, atraumatic. Eyes: Pupils equal round and reactive to light, extra-ocular motions intact. Lids and lashes normal. Conjunctiva and sclera are not injected. Cornea within normal limits. Periorbital areas with no swelling, redness, or edema. ENT: Nares patent. No nasal discharge, no septal abnormalities noted. Tympanic membranes are normal and external auditory canals are clear. Oropharynx with no redness, swelling, or masses, exudates, or evidence of obstruction, uvula midline. Mucous membranes moist. Neck: Trachea midline, no thyromegaly or masses palpated, and no cervical lymphadenopathy. Supple, full range of motion without nuchal rigidity, or vertebral point tenderness. Chest/axilla: Normal chest wall appearance and motion. Nontender with no deformity. No lesions are appreciated. Cardiovascular: Regular rate and rhythm with a normal S1 and S2. No gallops, murmurs, or rubs. Normal PMI, no JVD. No pulse deficits. Respiratory: Lungs have equal breath sounds bilaterally, clear to auscultation and percussion. No rales, rhonchi or wheezes noted. No increased work of breathing, no retractions or nasal flaring. Abdomen/GI: Soft, with normal bowel sounds. No distension or tympany. No guarding or rebound. No evidence of tenderness throughout. Back: No spinal tenderness. No costovertebral tenderness. Skin: Warm, dry with normal turgor. Normal color with no rashes, no lesions, and no evidence of cellulitis. MS/ Extremity: Pulses equal, no cyanosis. Neurovascular intact. Full, normal range of motion. Neuro: Awake and alert, GCS 15, oriented to person, place, time, and situation. Cranial nerves II-XII grossly intact. Motor strength 5/5 in all extremities. Sensory grossly intact. Psych: Awake, alert, with orientation to person, place and time. Behavior, mood, and affect are within normal limits Vital Signs: 07:09 BP 123 / 87; Pulse 91; Resp 18; Temp 98.5; Pulse Ox 97% ; Weight 97.52 kg; Height 5 ft. kc6 1 in. ; Pain 0/10; 07:09 Body Mass Index 40.62 (97.52 kg, 154.94 cm) kc6 07:09 Pain Scale: Adult kc6 Kenton Coma Score: 06:43 Eye Response: spontaneous(4). Motor Response: obeys commands(6). Verbal Response: sp4 oriented(5). Total: 15. MDM: 06:45 Differential Diagnosis altered mental status, sepsis, flu. Data reviewed: vital signs, sp4 nurses notes, lab test result(s), urinalysis. Transition of care: After a detail discussion of the patient's case, care is transferred to Rafal Mclain MD. 07:04 Medical Screening Exam initiated ec2 07:04 ED course: Patient signed out to me by. Physician, in brief arrives today for URI ec2 symptoms along with nausea and vomiting. Plan is a medicate the patient, reassess and discharged home.. 07:26 ED course: Patient signed out to me by previous physician, arrives today for evaluation ec2 of URI signs and symptoms, in brief arrives today for evaluation of URI symptoms along with nausea and vomiting. Plan is to medicate, obtain lab work and discharge home.. 07:59 ED course: On reassessment patient with improvement in symptoms. Will discharge home, ec2 suspect viral infection. Return precautions given.. 01/14 06:34 Order name: Influenza Screen (a \T\ B); Complete Time: 07:44 sp4 01/14 06:34 Order name: Test, Urine; Complete Time: 07:44 sp4 01/14 06:34 Order name: Urinalysis W/Microscopic; Complete Time: 07:44 sp4 01/14 06:41 Order name: Saline Lock; Complete Time: 06:59 sp4 Administered Medications: 07:33 Drug: NS 0.9% IV 1000 ml IV at 1 bolus Per protocol; to be given as a bolus over 60 kc6 minutes Route: IV; Rate: 1 bolus; Site: left antecubital; 08:28 Follow up: Response: No adverse reaction; IV Status: Completed infusion; IV Intake: kc6 1000ml 07:33 Drug: Ondansetron IVP 8 mg IVP once; over 2 minutes Route: IVP; Site: left antecubital; kc6 08:28 Follow up: Response: No adverse reaction kc6 07:33 Drug: Ketorolac IVP 30 mg IVP once Route: IVP; Site: left antecubital; kc6 08:28 Follow up: Response: No adverse reaction kc6 07:33 Drug: Dextromethorphan-Guaifenesin PO Liquid 10 mg-100 mg/5 mL 20 ml PO once Route: PO; kc6 08:28 Follow up: Response: No adverse reaction kc6 Disposition Summary: 01/14/25 07:59 Discharge Ordered Notes: Location: Home ec2 Condition: Stable ec2 Diagnosis - Viral infection, unspecified ec2 Followup: ec2 - With: Private Physician - When: - Reason: Re-evaluation by your physician Discharge Instructions: - Discharge Summary Sheet ec2 - Viral Illness, Adult ec2 Forms: - Work release form ec2 - Medication Reconciliation Form ec2 - Antibiotic Education ec2 - Prescription Opioid Use ec2 - Patient Portal Instructions ec2 - Leadership Thank You Letter ec2 Prescriptions: - Zofran 4 mg Oral Tablet - take 1 tablet ORAL route every 12 hours As needed; 20 tablet; Refills: 0, ec2 Product Selection Permitted - Tessalon Perles 100 mg Oral Capsule - take 1 capsule ORAL route every 8 hours As needed; 15 capsule; Refills: 0, ec2 Product Selection Permitted Signatures: Dispatcher [employer] Teresa Mendez, RN RN kc6 Zion Becerra MD MD sp4 Rafal Mclain MD MD ec2 Corrections: (The following items were deleted from the chart) 06:35 06:35 Influenza Screen (A \T\ B)+BA.LAB.BRZ ordered. EDMS EDMS 06:35 06:35 Test, Urine+UC.LAB.BRZ ordered. EDMS EDMS 06:35 06:35 Urinalysis W/Microscopic+U.LAB.BRZ ordered. EDMS EDMS 07:11 07:10 PSHx: D\T\C; kc6 kc6
[2025-01-14 08:57] VITALS: BP 123/87; TEMP 98.5; O2SAT 97
== END 2025-01-14 08:30 | disposition home or self-care (01) ==
LOC: ER 06:16
DX: B34.9 Viral infection, unspecified (principal)
CPT/HCPCS: 96361; 81001; 81025; 87804 ×2; 96375; 96374; 99284; J2405; J7030

== ENCOUNTER 2025-04-26 18:05 | Emergency (ER) | payer OTHER ==
--- OUTSIDE RECORDS SUMMARY | 2025-04-26 18:11 | XMS REPORT | Continuity of Care Document ---
Author Name Unknown Address [address] [facility] [place] [address] [facility] Address [address] [place] [address] Care Team Providers Care Slot Supervisor Name Role Phone Pcp, Patient Does Not Have A Primary Care Physic meeta Butch Vo Attending Clinician Unavailable Amy Handy Attending Clinician Unavaila Radha Harrell Attending Clinician Unavailab Jesus Gross Attending Clinician [phone] JESUS MARES Attending Clinician Unavailable V[facility]-Lab Attending Clinician Unavailable AVRIL SANTOS Attending [...] Unavailable BRET MARTINEZ Attending Clinician Unavailab le Lab, Ang-Rmchp Attending Clinician Unavailable DEVONTE FUENTES Attending Clinician Unavail able Ke Damico Attending Clinician Unavailable JASE GILLILAND Attending Clinician Unavailable Sean Gary Attending Clinician Unavailable Demarco Temple Attending Clinician Unavailable Ricardo Benz Attending Clinician Jewell Nathan Admitting Clinician Unavailable Rakan Rodriguez Admitting Clinician Unavailable Demarco Temple Admitting Clinician Unavailable Payers Payer Name Policy Type Policy Number Effective Date Expirati on Date Source [facility] (MEDICAID HMO) [id number] 2022 00:00:00 2022 00:00:00 MEDICAID PENDING PENDING 2021 00:00:00 Problems Condition Name Condition Details Condition Category Status Onset Date Resolution Date Last Treatment Date Treating Clinician Comments Source Hyperchole sterolemia Hyperchole sterolemia Problem Active - 00:00: 00 [facility] Anxiety Anxiety Problem Active 3- 00:00: 00 [facility] Depressive disorder Depressive Disorder Problem Active - 00:00: 00 [facility] Lump in lower inner quadrant of left breast Lump in Lower Inner Quadrant of Left Breast Problem Active - 00:00: 00 [facility] Panic attack Panic attack Disease Active 2023-12 2- 00:00: 00 [facility] PTSD (post-trau matic stress disorder) PTSD (post-trau matic stress disorder) Disease Active 2023-12 00:00: 00 [facility] Bipolar 1 disorder Bipolar 1 disorder Disease Active 2023-12 1- 00:00: 00 [facility] High cholestero l High cholestero l Disease Active 7-05 00:00: 00 [facility] Rubella non-immune status, antepartum Rubella non-immune status, antepartum Disease Active 06-13 00:00: 00 Overview: Formattin g of this note might be different from the original. Address in PP. [facility] Supervisio n of high risk in first trimester Supervisio n of high risk in first trimester Disease Active 06-12 00:00: 00 [facility] Inmate in correction al facility Inmate in correction al facility Disease Active 06-12 00:00: 00 [facility] Obesity in Obesity in Disease Active 06-12 00:00: 00 [facility] BMI 37.0-37.9, adult BMI 37.0-37.9, adult Disease Active 06-12 00:00: 00 [facility] Multiparit y Multiparit y Disease Active 06-12 00:00: 00 [facility] History of depression History of depression Disease Active 06-12 00:00: 00 [facility] Constipati on, unspecifie d constipati on type Constipati on, unspecifie d constipati on type Disease Active 06-12 00:00: 00 [facility] Alcohol dependence in remission Alcohol dependence in remission Disease Active 06-12 00:00: 00 [facility] History of drug abuse History of drug abuse Disease Active 06-12 00:00: 00 [facility] Cramping affecting , antepartum Cramping affecting , antepartum Disease Active 06-12 00:00: 00 [facility] History of drug abuse History of drug abuse Disease Active 06-12 00:00: 00 [facility] Chlamydia Chlamydia Disease Active 2016-12 0 00:00: 00 [facility] Encounter for contracept luis felipe management , unspecifie d type Encounter for contracept luis felipe management , unspecifie d type Disease Active 2016-12 018 00:00: 00 [facility] Breast mass, right Breast mass, right Disease Active 2016-12 00:00: 00 [facility] Depression , unspecifie d depression type Depression , unspecifie d depression type Disease Active 2016-12 00:00: 00 [facility] Drug usage Drug usage Disease Active 2016-12 00:00: 00 [facility] BMI 25.0-25.9, adult BMI 25.0-25.9, adult Disease Active 2016-12 00:00: 00 [facility] Anemia, unspecifie d type Anemia, unspecifie d type Disease Active 2016-12 00:00: 00 [facility] BMI 25.0-25.9, adult BMI 25.0-25.9, adult Disease Active 2016-12 00:00: 00 [facility] Allergies, Adverse Reactions, Alerts Allergy Name Allergy Type Status Severity Reaction(s) Onset Date Inactive Date Treating Clinician Comments Source No Known Allergie s DA Active U 12-04 00:00: 00 [facility] No Known Allergie s DA Active U 2020-12 00:00: 00 [facility] No Known Allergie s DA Active U 02-21 00:00: 00 [facility] Shrimp Propensi ty to adverse reaction s Active Shortness of Breath 2016-12 00:00: 00 Lips swell [facility] SHRIMP DRUG INGREDI Active SOB 2016-12 00:00: 00 [facility] Social History Social Habit Start Date Stop Date Quantity Comments Source ASSERTION 2021-03-29 00:00:00 Not [facility] History of tobacco use Cigarette Smoker [facility]coholic beverage intake 2022-03-14 00:00:00 2022-03-14 00:00:00 Current non-drinker of alcohol (finding) [facility] Cigarettes smoked current (pack per day) - Reported 2021-06-12 00:00:00 2021-06-12 00:00:00 [facility] Cigarette pack-years 2021-06-12 00:00:00 2021-06-12 00:00:00 [facility] Tobacco use and exposure 2021-06-12 00:00:00 2021-06-12 00:00:00 Smokeless tobacco non-user [facility] Alcohol intake 2021-06-12 00:00:00 2021-06-12 00:00:00 Current non-drinker of alcohol (finding) [facility] Tobacco Comment 2021-06-12 00:00:00 2021-06-12 00:00:00 trying to wean herself 3-4 cigarrettes per day [facility] History of Social function 2021-06-12 00:00:00 2021-06-12 00:00:00 [facility] Sex assigned at 1995 00:00:00 1995 00:00:00 [facility] Smoking Status Start Date Stop Date Source Current Every Day Smoker [facility] tobacco smoker 2021-06-12 00:00:00 [facility] Medications Ordered Medication Name Filled Medication Name Start Date Stop Date Current Medication? Ordering Clinician Indication Dosage Frequency Signature (SIG) Comments Components Source ergocalcife rol, vitamin d2, 1,250 mcg (50,000 unit) capsule 2023-12 00:00: 00 Yes [id number] Take 1 capsule by mouth weekly. [facility] metformin HCl (METFORMIN ORAL) 2023-12 15:25: 37 11-06 00:00 :00 No Take by mouth. [facility] OLANZapine 10 mg tablet 2023-12 00:00: 00 Yes 10mg Take 1 tablet by mouth at bedtime. [facility] OXcarbazepi ne 300 mg tablet 2023-12 00:00: 00 Yes TAKE 1 TABLET BY MOUTH TWICE DAILY FOR MOOD OR IRRITABILI GY [facility] desogestreL -ethinyl estradioL (APRI) 0.15-0.03 mg per tablet - 00:00: 00 Yes [facility] 25/iron fum/folic/d mclain (-1 ORAL) 06-12 11:00: 04 Yes Take by mouth. [facility] Ozempic 0.25 mg or 0.5 mg (2 mg/3 mL) subcutaneou s pen injector INJECT 0.25 MG ONCE A WEEK FOR 4 WEEKS, THEN INCREASE DOSE TO 0.5 MG Ozempic 0.25 mg or 0.5 mg (2 mg/3 mL) subcutaneou s pen injector INJECT 0.25 MG ONCE A WEEK FOR 4 WEEKS, THEN INCREASE DOSE TO 0.5 MG No Ozempic 0.25 mg or 0.5 mg (2 mg/3 mL) subcutaneo us pen injector INJECT 0.25 MG ONCE A WEEK FOR 4 WEEKS, THEN INCREASE DOSE TO 0.5 MG [facility] prazosin 1 mg capsule TAKE 1 CAPSULE BY MOUTH EVERY NIGHT AT BEDTIME prazosin 1 mg capsule TAKE 1 CAPSULE BY MOUTH EVERY NIGHT AT BEDTIME No prazosin 1 mg capsule TAKE 1 CAPSULE BY MOUTH EVERY NIGHT AT BEDTIME [facility] sertraline 100 mg tablet TAKE 1 TABLET BY MOUTH DAILY FOR DEPRESSION sertraline 100 mg tablet TAKE 1 TABLET BY MOUTH DAILY FOR DEPRESSION No sertraline 100 mg tablet TAKE 1 TABLET BY MOUTH DAILY FOR DEPRESSION [facility] sumatriptan sumatriptan No craven matripta n [facility] Trileptal Trileptal No Trileptal [facility] Zyprexa Zyprexa No Zyprexa [facility] atorvastati n 10 mg tablet TAKE 1 TABLET BY MOUTH AT BEDTIME atorvastati n 10 mg tablet TAKE 1 TABLET BY MOUTH AT BEDTIME No atorvastat in 10 mg tablet TAKE 1 TABLET BY MOUTH AT BEDTIME [facility] Vital Signs Vital Name Observation Time Observation Value Comments S tim Systolic blood pressure 2024-11-06 21:29:00 124 mm[Hg] [facility] Diastolic blood pressure 2024-11-06 21:29:00 89 mm[Hg] [facility] Heart rate 2024-11-06 21:29:00 86 /min [facility] Respiratory rate 2024-11-06 21:29:00 18 /min [facility] Body height 2024-11-06 21:29:00 154.9 cm [facility] Body weight 2024-11-06 21:29:00 95.255 kg [facility] BMI 2024-11-06 21:29:00 39.68 kg/m2 [facility] Oxygen saturation in Arterial blood by Pulse oximetry 2024-11-06 21:29:00 96 /min [facility] WEIGHT 2021-12-04 20:52:00 98.150466 kg HEIGHT 2021-12-04 20:52:00 154.94 cm Largest [...] Weight 2021-10-29 20:35:28 2160 WEIGHT 2021-10-29 20:35:00 96.232370 kg HEIGHT 2021-10-29 20:35:00 154.94 cm Hx [...] Weight 2021-10-08 01:22:52 2160 WEIGHT 2016-11-13 02:19:00 80.554335 kg HEIGHT 2016-11-13 02:19:00 154.94 cm WEIGHT 2014-05-21 14:26:00 84.211898 kg HEIGHT 2014-05-21 14:26:00 162.56 cm Procedures Procedure Date / Time Performed Performing Clinician Source POCT GLUCOSE (AUTOMATED) 2024-11-06 21:49:00 Jesus Mares [facility] EXTERNAL PAP SMEAR 2021-05-10 21:01:00 Doctor Un assigned, [place] [facility] Dilation of Cervix Uteri and Curettage for Termination of 2013-09-01 00:00:00 [facility] Colposcopy [facility] Cryosurgery [facility] Encounters Start Date/Time End Date/Time Encounter Type Admission Type Attending Clinicians Care Facility Care Department Encounter ID Source 2024-07-19 17:06:00 Outpatient Butch Vo [facility] [id number] [facility] 2024-07-13 17:18:00 Outpatient Amy Handy [facility] [id number] [facility] 2024-03-25 10:40:01 Outpatient Amy Brand [facility] [id number] [facility] 2024-02-19 09:28:00 Outpatient Amy Brand [facility] HP[facility] [id number] [facility] 2024-01-24 11:05:01 Outpatient Amy Brand [facility] HP[facility] [id number] [facility] 2024-01-22 10:11:00 Outpatient Amy Brand [facility] HP[facility] [id number] [facility] 2023-12-17 15:21:00 Outpatient Amy Brand [facility] HP[facility] [id number] [facility] 2023-09-11 08:30:00 Outpatient Butch Vo [facility] HPNT [id number] [facility] 2023-08-21 13:25:00 Outpatient Butch Vo [facility] HP[facility] [id number] [facility] 2023-06-29 15:58:00 Outpatient Radha Clemente [facility] HPNT [id number] [facility] 2023-06-10 15:07:00 Outpatient Butch Vo HPNT HPNT [id number] [facility] 2023-03-14 13:03:05 Outpatient Butch Vo HPNT HPNT [id number] [facility] 2023-03-06 14:22:00 Outpatient Butch Vo HPNT HPNT [id number] [facility] 2023-01-30 09:31:01 Outpatient HPNT HPNT [id number] [facility] 2023-01-29 11:30:01 Outpatient HPNT HPNT [id number] [facility] 2022-09-24 09:15:03 Outpatient HPNT HPNT [id number] [facility] 2022-08-13 14:55:02 Outpatient HPNT HPNT [id number] [facility] 2022-08-01 17:43:00 Outpatient HPNT HPNT [id number] [facility] 2022-05-18 10:26:00 Outpatient HPNT HPNT [id number] [facility] 2022-02-12 11:09:02 Outpatient HPNT HPNT [id number] [facility] 2021-12-27 14:12:22 Outpatient HPNT HPNT [id number] [facility] 2021-12-27 14:05:30 Outpatient HPNT HPNT [id number] [facility] 2021-10-02 04:27:[address] [facility] [id number] [facility] 2025-03-31 00:00:00 2025-03-31 10:05:53 Jesus Haley [facility] [id number] 350.1.13.10 4.2.7.2.686 [id number] [facility] 2025-02-11 00:00:00 2025-02-11 00:00:00 Cathleen Edgar, SHELL FISHERMAN: [address], [address], [place] [address] , Ph. [facility] - GC_GCBZW_La [facility]* [id number] [facility] 2025-02-01 00:00:00 2025-02-01 09:35:34 [facility] [id number] 350.1.13.10 4.2.7.2.686 [id number] [facility] 2025-01-01 00:00:00 2025-01-01 11:32:51 [facility] 1.2840.114 350.1.13.10 4.2.7.2.686 [id number] [facility] 2024-12-29 00:00:00 2024-12-30 08:54:31 [facility] [place] [id number] 350.1.13.10 4.2.7.2.686 [id number] [facility] 2024-11-20 00:00:00 2024-11-26 09:06:51 Patient Secure M[facility] [place] [id number] 350.1.13.10 4.2.7.2.686 [id number] [facility] 2024-11-18 15:15:00 2024-11-18 15:30:00 Base Remover Visit Vtc-Lab Jesus Mares [facility] [place] [facility] 1.2.840.114 350.1.13.10 4.2.7.2.686 [id number] [facility] 2024-11-18 15:15:00 2024-11-18 15:15:00 Outpatient R MISTI MARESMiguel [facility] [id number] [facility] 2024-11-06 15:30:00 2024-11-06 16:10:54 [facility] [id number] [facility] 2024-11-06 15:30:00 2024-11-06 16:10:54 Office Visit Dustin [facility] [id number] 350.1.13.10 4.2.7.2.686 [id number] [facility] 2024-05-02 10:24:00 2024-05-02 11:57:00 Emergency [facility] [id number] [facility] 2023-12-16 18:00:00 2023-12-16 22:49:00 Emergency ER Will Lopez [facility] [id number] [facility] 2023-10-08 12:26:00 2023-10-08 15:35:00 Emergency ER Ena Duarte [facility] [id number] [facility] 2023-05-14 23:06:00 2023-05-14 23:55:00 Emergency ER Zo Batista [facility] [id number] [facility] 2023-03-19 22:41:00 2023-03-19 23:35:00 Emergency ER Ena Duarte [facility] [id number] [facility] 2023-03-01 22:36:00 2023-03-01 23:45:00 Emergency ER Lester, Zo STLSJM STLSJM [id number] [facility] 2023-02-25 22:34:00 2023-02-26 02:11:00 Emergency ER Lester, Zo STLSJM STLSJM [id number] [facility] 2023-02-19 08:51:00 2023-02-19 08:52:00 Outpatient R Amy Brand [facility] [id number] [facility] 2023-02-12 00:00:00 2023-02-12 00:00:00 Outpatient Amy Brand [facility] ST[facility] [id number] [facility] 2022-12-03 16:37:00 2022-12-03 18:38:00 Emergency ER Timi Bolivar STLSJM STLSM [id number] [facility] 2022-11-14 14:47:00 2022-11-14 15:53:00 Emergency ER Zo Batista STLSM STLS [id number] [facility] 2022-07-24 13:36:00 2022-07-24 14:06:00 Emergency ER LesterAllen yuba STLS STLS [id number] [facility] 2022-05-28 11:36:00 2022-05-28 11:36:00 [facility] [id number] 2022-05-21 16:23:00 2022-05-21 17:30:00 Emergency ER Johann Steel STLSJM STLSJM [id number] [facility] 2022-05-18 18:05:00 2022-05-18 19:05:00 Emergency ER Butch Ribeiro [facility] [id number] [facility] 2022-04-10 19:00:00 2022-04-10 19:59:00 Emergency ER Zo Batista [facility] [id number] [facility] 2022-03-30 21:54:00 2022-03-30 22:35:00 Emergency ER Bhupinder Campos [facility] [id number] [facility] 2022-03-27 08:15:00 2022-03-27 09:31:00 Emergency ER Zo Batista [facility] [id number] [facility] 2022-03-11 00:29:00 2022-03-11 01:21:00 Emergency ER Johann Steel [facility] [id number] [facility] 2022-02-28 00:00:00 2022-02-28 00:00:00 Case Management Sheryl Ruelas [id number] 350.1.13.10 4.2.7.2.686 [id number] [facility] 2021-12-04 20:12:00 2021-12-06 19:55:00 Inpatient U Rakan Rodriguez [facility] OB [id number] [facility] 2021-11-30 10:10:00 2021-11-30 10:11:00 Outpatient R Rodriguez Rakan STLSJX STLSJX [id number] [facility] 2021-10-29 20:08:00 2021-10-29 22:31:00 Outpatient U Rakan Rodriguez STLSJX ST[facility]JX [id number] [facility] 2021-10-04 10:05:00 2021-10-04 16:20:00 Outpatient Rakan Sue STLSJX STLSJX [id number] [facility] 2021-09-20 09:21:00 2021-09-20 09:22:00 Outpatient Rakan Melvin STLSAlcidesM STLSJM [id number] [facility] 2021-08-22 14:53:00 2021-08-22 14:54:00 Outpatient Amy Daily STJX STLSJX [id number] [facility] 2021-08-22 14:00:00 2021-08-22 14:00:00 [facility] [id number] [facility] 2021-08-02 10:45:00 2021-08-02 10:45:[address] [facility] [id number] [facility] 2021-07-16 09:48:00 2021-07-16 09:48:00 Emergency ER Sunday Berkowitz [facility] STLS [id number] [facility] 2021-07-10 09:30:00 2021-07-10 09:30:[address] [facility] [id number] [facility] 2021-06-19 08:18:45 2021-06-19 08:44:57 Base Remover Visit Lab, Ang-Rmp [facility] [id number] 350.1.13.10 4.2.7.2.686 [id number] 2021-06-19 08:00:00 2021-06-19 08:00:[address] [facility] [id number] [facility] 2021-06-12 11:15:00 2021-06-12 11:15:[address] [facility] [id number] [facility] 2021-06-06 08:00:00 2021-06-06 08:00:[address] [facility] [id number] [facility] 2020-08-03 02:29:00 2020-08-03 02:29:00 Emergency ER Ke Damico [facility] [id number] [facility] 2017-05-05 23:33:00 2017-05-06 04:29:00 Emergency ER Jase Gilliland [facility] [id number] [facility] 2016-11-13 01:44:00 2016-11-13 08:15:00 Outpatient ER Rakan Rodriguez [facility] [id number] [facility] 2016-09-27 23:06:00 2016-09-27 23:56:00 Emergency ER Jase Gilliland [facility] [id number] [facility] 2016-09-04 10:41:00 2016-09-04 10:42:00 Outpatient R Rakan Rodriguez [facility] [id number] [facility] 2016-08-22 11:13:00 2016-08-22 12:06:00 Emergency ER Sean Gary [facility] [id number] [facility] 2016-07-06 19:55:00 2016-07-06 22:03:00 Emergency ER Jase Gilliland [facility] [id number] [facility] 2014-05-21 15:28:00 2014-05-24 15:40:00 Inpatient Demarco Young [facility] [id number] [facility] 2014-05-07 15:21:00 2014-05-07 15:22:00 Outpatient Ricardo Qureshi [facility] [id number] [facility] Results Test Description Test Time Test Comments Results Result Co mments Source [facility] [id number] 22:57:00* Test Item Value Reference Range Interpretation [...] viable organisms. Vaginitis Panel 3 by DNA [id number] 15:57:00* Test Item Value Reference Range Interpretation Comme nts Vaginitis Panel 3 by DNA Pro be (test code = VP3) VPIIICANDI Vaginitis Panel 3 by DNA Pro be (test code = VP31) N A Vaginitis Panel 3 by DNA Pro be (test code = VP31) VPIIITRICH A [id number] 11:40:00* Test Item Value Reference Range Interpretation [...] No Wet Prep Sources: VaginalSexual Assault Suspected? [id number] 11:18:00* Test Item Value Reference Range Interpretation [...] Pelvic or flank painUrine Source: Urine Clean [id number] 11:18:00* Test Item Value Reference Range Interpretation Comme nts Urinalysis (test code = UACRFLXNO) No Indications to order a Urinalysis: Pelvic or flank painUrine Source: Urine Clean [id number] 11:11:00* Test Item Value Reference Range Interpretation [...] (test code = PREGUSG) 1.042 1.002-1.036 H [id number] 19:58:00* Test Item Value Reference Range Interpretation [...] for Estimated GFR: Greater than 90 mL/min/1.73 w4Hqcpbvmw eGFR is based on the CKD-EPI 2020 [...] code = ALT) 23 U/L 8-55 N [id number] 19:38:00* Test Item Value Reference Range Interpretation [...] code = BASO#) 0.1 thou/uL 0.0-0.2 N [id number] 19:20:00* Test Item Value Reference Range Interpretation [...] Urinalysis: Pelvic or flank painUrine Source: Urine [id number] 19:20:00* Test Item Value Reference Range Interpretation [...] (test code = PREGUSG) 1.026 1.002-1.036 N [id number] 19:20:00* Test Item Value Reference Range Interpretation Comme nts Urinalysis (test code = UACRFLXNO) No HIndications to order a Urinalysis: Pelvic or flank painUrine Source: Urine [id number] 14:41:00* Test Item Value Reference Range Interpretation Comme nts Coagulation (test code = DDIMTT) 0.38 *mcg/mL 0.27-0.43 N * Reference Rang e Units: mcg/mL of fibrinogen equivalent units(FEU)Based upon a retrospective study of [facility] patients in April 2006, a result of"Less than 0.44 mcg/mL FEU" is predictive of the absence ofa DVT or PE. [id number] 14:28:00* Test Item Value Reference Range Interpretation Comme nts Chemistry (test code = CRP) 0.59 mg/dL See_Comment H [Automated messa ge] The system which generated this result transmitted reference range: = or < 0.5. The reference range was not used to interpret this result as normal/abnormal. SWhat test does the doctor want? C-REACTIVE PROTEIN (CRP)[id number] 13:58:00* Test Item Value Reference Range Interpretation [...] Pelvic or flank painUrine Source: Urine Clean [id number] 13:58:00* Test Item Value Reference Range Interpretation Comme nts Urinalysis (test code = UACRFLXNO) No HIndications to order a Urinalysis: Pelvic or flank painUrine Source: Urine Clean [id number] 13:52:00* Test Item Value Reference Range Interpretation [...] 1.020 1.002-1.036 N HCulture, Strep Group A [id number] 16:47:00* Test Item Value Reference Range Interpretation Comme nts Culture, Strep Group A Rflx (test code = STRPACULT) STRPCULT Culture, Strep Group A Rflx (test code = STRPACULT1) N Strep Group A [id number] 23:49:00* Test Item Value Reference Range Interpretation Comme nts Strep Group A Screen (test c ode = STRP) STRPANEG1 Strep Group A Screen (test c ode = STRP1) N Strep Group A Screen (test c ode = STRP1) STRPTH TONS HChemistry - Vmskivgm1635-14-18 23:21:00* Test Item Value Reference Range Interpretation Comme [facility] Chemistry - Specials (test code = BHCGST) Negative NEGATIVE Method of s ensitivity- Indeterminant: results should be repeated after 48-72 hrs Positive: results may be detected as early as 1 day after the first missed menses. Nqgkhgjzpj6887-94-88 23:01:00* Test Item Value Reference Range Interpretation Comme [facility] Hematology (test code = HGBT) 12.5 g/dL 12.0-16.0 N Hematology (test code = HCTT) 39.4 % 36.0-47.0 N Dqtfyizwld7549-78-56 12:05:00* Test Item Value Reference Range Interpretation Comme [facility] Hematology (test code = WBCT) 11.2 10x3/uL [...] Adequate Hematology (test code = MC) Normal Xjdmyxemi7217-04-88 02:02:00* Test Item Value Reference Range Interpretation Comme [facility] Chemistry (test code = TROPI-T) Less than 0.010 ng/mL < 0.028 Eocxiusfa1511-35-22 23:23:00* Test Item Value Reference Range Interpretation Comme [facility] Chemistry (test code = TROPI-R) Less than 0.010 ng/mL < 0.028 * Reference Range 0.00 - 0.028 ng/mL Negative 0.029 - 0.29 ng/mL Indeterminate Greater or Equal to 0.3 ng/mL Strongly suggests CT Chemistry - BNP, HgbA1c, [id number] 23:23:00* Test Item Value Reference Range Interpretation Comme [facility] Chemistry - BNP, HgbA1c, PTHi (test code = BNP) Less than 10.0 pg/mL 0-100 N Alkrwucnd2365-58-66 23:22:00* Test Item Value Reference Range Interpretation [...] for Estimated GFR: Greater than 90 mL/min/1.73 n3Rtwpsvqy eGFR is based on the CKD-EPI 2020 [...] code = ALT) 15 U/L 8-55 N Azbafypko0024-17-96 23:22:00* Test Item Value Reference Range Interpretation Comme nts Chemistry (test code = MG-T) 2.1 mg/dL 1.6-2.6 N Jwgaoyyqael0243-29-42 23:20:00* Test Item Value Reference Range Interpretation Comme nts Coagulation (test code = DDIMTT) 0.33 *mcg/mL 0.27-0.43 N * Reference Rang e Units: mcg/mL of fibrinogen equivalent units(FEU)Based upon a retrospective study of [facility] patients in April 2006, a result of"Less than 0.44 mcg/mL FEU" is predictive of the absence ofa DVT or PE. Chemistry - Jbqfwkmt5850-00-65 23:12:00* Test Item Value Reference Range Interpretation Comme [facility] Chemistry - Specials (test code = BHCGST) Negative NEGATIVE Method of s ensitivity- Indeterminant: results should be repeated after 48-72 hrs Positive: results may be detected as early as 1 day after the first missed menses. Strep Group A Ccnjib5456-41-19 18:06:00* Test Item Value Reference Range Interpretation Comme [facility] Strep Group A Screen (test c ode = STRP) STRPTH A Strep Group A Screen (test c ode = STRP1) P A Chemistry - Wyqwqcxr8923-56-88 15:34:00* Test Item Value Reference Range Interpretation Comme [facility] Chemistry - Specials (test code = BHCGST) Negative NEGATIVE Method of s ensitivity- Indeterminant: results should be repeated after 48-72 hrs Positive: results may be detected as early as 1 day after the first missed menses. Hkwsfnpioy0111-14-77 15:25:00* Test Item Value Reference Range Interpretation Comme [facility] Hematology (test code = HGBT) 13.3 g/dL 12.0-16.0 N Hematology (test code = HCTT) 40.7 % 36.0-47.0 N Molecular Testing [id number] 15:01:00* Test Item Value Reference Range Interpretation Comme [facility] Molecular Testing MM (test code = [id number]) DETECTED NotDetected AA Results called t o: ENDY.AW2@1501Results called and verbally verified through "read-back".by Neena Shea on 07/24/22 at 1500.Performance of the Cepheid SARS-CoV-2 has only beenestablished in nasopharyngeal swab specimens. This testcannot rule out diseases caused by other bacterial or viralpathogens.CepEmidaid has been provided an FDA EUA that [...] Test: UnknownHospitalized: UnknownICU: UnknownDate of Symptom Onset: [id number]: UnknownReason for Testing: PUI -SymptomaticSource: Nasopharyngeal SwabSymptomatic as defined by CDC: GhvivuyZhkqjqtbcj4288-75-83 18:49:00* Test Item Value Reference Range Interpretation [...] = UABLD) Negative Negative Urine Source: Urine ExtegrCvevrfqfib9651-78-68 18:49:00* Test Item Value Reference Range Interpretation Comme nts Urinalysis (test code = UARBC) None Seen HPF 0-3 Urinalysis (test code = UAWBC) None Seen HPF 0-3 Urinalysis (test code = UASQUAM) 7-10 HPF 0-3 A Urinalysis (test code = UABAC) Rare-Few HPF None Seen Urinalysis (test code = UAMCS) 2+ LPF See_Comment A [Automated Savosolara ge] The system which generated this result transmitted reference range: <2+. The reference range was not used to interpret this result as normal/abnormal. Urine Source: Urine ZpxlweRmziahkhke5947-27-06 18:45:00* Test Item Value Reference Range Interpretation Comme [facility] Urinalysis (test code = BHCGUT) Negative [...] (test code = PREGUSG) 1.046 1.002-1.036 H Pmtynucbn1015-87-66 15:02:00* Test Item Value Reference Range Interpretation Comme [facility] Chemistry (test code = [id number]) H F GLU 99 Col: 0925 1 [...] January 2010. Is patient fasting? YMolecular Testing [id number] 17:48:00* Test Item Value Reference Range Interpretation Comme [facility] Molecular Testing MM (test code = [...] code = COVIDSOURCEMM) Nasopharyngeal Swab Resident in [facility] Care Setting: NoEmployed in Healthcare: NoFirst Test: NoHospitalized: NoICU:NoDate of Symptom Onset: [id number]: UnknownReason for Testing: PUI -SymptomaticSource: Nasopharyngeal SwabSymptomatic as defined by CDC: YesCulture, Yrliv3967-69-48 10:14:00* Test Item Value Reference Range Interpretation Comme nts Culture, Urine (test code = URC) NF N Culture, Urine (test code = URC1) 25 MSF N Chemistry - Lltcfmzj7222-28-43 01:45:00* Test Item Value Reference Range Interpretation Comme nts Chemistry - Specials (test c ode = TSH3) 1.2111 uIU/mL 0.35-4.94 N Ewoobqdsn9377-07-88 01:41:00* Test Item Value Reference Range Interpretation Comme nts Chemistry (test code = AMERICO) 28.0 U/L 25-125 N Cyfwvtvnm5420-16-76 01:41:00* Test Item Value Reference Range Interpretation Comme nts Chemistry (test code = LIP) 7 U/L 8-78 L Nmyreklkd6158-55-24 01:41:00* Test Item Value Reference Range Interpretation [...] Toxic: 50 - 100 mg/dL Depression of STREET WORKER: Greater than 100 mg/dL Fatalities reported: Greater than 400 mg/dL Chemistry (test code = SALCY) Less than 8.0 mg/dL 15.0-30.0 L Dvulcylsdl7162-74-30 01:32:00* Test Item Value Reference Range Interpretation [...] BASO#) 0.1 thou/uL 0.0-0.2 N Chemistry - Xqbgfnla3537-52-29 01:32:00* Test Item Value Reference Range Interpretation Comme [facility] Chemistry - Specials (test code = [...] 2 - 3 months 10,000 - 100,000 Nzjogvzgh0568-40-78 01:24:00* Test Item Value Reference Range Interpretation [...] code = ALT) 14 U/L 8-55 N Djelpikckt1292-37-15 01:20:00* Test Item Value Reference Range Interpretation [...] AMORPH URATES HPF Negative Urine Source: Urine YulfsuAxhhmnpebf4681-05-09 01:18:00* Test Item Value Reference Range Interpretation [...] NotDetected Toxicology (test code = MTCUTOFF) The Last.fm Profile-V Panel for Qualitative Drugs ofAbuse assays [...] Source: Urine VoidedCT Abdomen Pelvis W [facility] 1995 [facility] Name: BRIANA PARRISH [address] Phys: [place] [address] : 1995 Age: 28 SEX:F [phone] Exam Date: 12/16/23 Status: REG ER Acct: [id number] Loc: [facility] Pt Unit #: [id number] Report #: [id number] CC: Will Lopez MD PULSECHECKSJX:[id number] CAT SCAN REPORT Report Status: Signed Order # Category/Exam [id number] CT/CT Abdomen Pelvis W Con ([id number]): . Results EXAM: CT ABDOMEN AND PELVIS [...] 12/16/232101 Transcribed Date/Time:XR Knee Rt 4 View [facility] : 1995 [facility] Pt Name: BRIANA PARRISH [address] Phys: [place] [address] : 1995 Age: 27 SEX:F [phone] Exam Date: 03/19/23 Status: DEP ER Acct: [id number] Loc: [facility] Pt Unit #: [id number] Report #: [id number] CC: Ena Duarte MD IMAGING SERVICES REPORT Report Status: Signed Order # Category/Exam [id number] RAD/XR Knee Rt 4 View STANDARD ([id number]): . Results Radiograph right knee 4 views: HISTORY: 27-year-old female with acute on chronic right knee pain FINDINGS: Difficult to evaluate for joint effusion because of overlying clothing. There is probably edema in Hoffa's fat pad. No fracture or dislocation. Joint spaces aremaintained without erosions or osteophytes. No destructive osseous lesion. IMPRESSION: 1. No osseous abnormality. 2. Edema in Hoffa's fat pad and questionable joint effusion. Reported By: Rakesh Barrios MD Electronically Signed Date/Time: 03/20/23100 Technologist: KALI Dictated Date/Time: 03/20/23 010 Transcribed Date/Time:XR Chest 1 View [facility] : 1995 [facility] Pt Name: BRIANA PARRISH [address] Phys: [place] [address] : 1995 Age: 27 SEX:F [phone] Exam Date: 02/25/23 Status: REG ER Acct: [id number] Loc: [facility] Pt Unit #: [id number] Report #: [id number] CC: Zo Batista DO IMAGINGSERVICES REPORT Report Status: Signed Order # Category/Exam [id number] RAD/XR Chest 1 View Portable([id number]): . Results RADIOGRAPH CHEST 1 VIEW: DATE: 02/25/2023 HISTORY: Chest pain FINDINGS: There are no airspace densities, pulmonary edema, pneumothorax, or cardiomegaly. The lateral costophrenic angles are sharp. IMPRESSION: No acute cardiopulmonary findings. 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 Results US Breast Limited Lt History: Left breast palpable lump Comparison: None. Findings: Real-time grayscale and color evaluation of the left breast was performed first by the technologist and then inreal-time by the radiologist. Corresponding to the palpable [...] 3: Likely benign. Imaging appearance of benign fibroadenomaleft breast 11:00 1 cm from the nipple [...] Dictated Date/Time: 02/19/23 0938 Transcribed Date/Time: OB [facility] Name: BRIANA PARRISH : 1995 [facility] Pt Name: BRIANA PARRISH [address] [facility] Phys: [place] [address] : 1995 Age: 26 SEX:F Exam Date: 10/04/21 Status: REG [facility] Acct: [id number] Loc: C[facility]LD/OP Pt Unit #: [id number] Report #: [id number] CC: Mariana Vega DO ULTRASOUND REPORT Order # Category/Exam [id number] ULT/ OB [facility] ([id number]): . Results EXAM: OB [facility] 10/04/2021 11:47AM HISTORY: CSH . H/O Leaking [...] Name: BRIANA PARRISH : 1995 Sex[facility] Pt Name: BRIANA PARRISH [address] [facility] Phys: [place] [address] : 1995 Age: 26 SEX:F Exam Date: 08/22/21 Status: REG CLI Acct: [id number] Loc: [facility] Pt Unit #: [id number] Report #: [id number] CC: Amy Brand NP ULTRASOUND REPORT Order # Category/Exam [id number] ULT/US OB Complete STANDARD ([id number]): . Results EXAM: Completeobstetrical ultrasound HISTORY: Encounter [...] Transcribed Date/Time: Notes Date/Time Note Provider Source 2025-03-31 16:18:26 Called patient left a message to call clinic to schedule an appt. Erica Hyman [facility] 2025-03-31 10:03:59 Refill: Ozempic 0.5 mg weekly RADHA: 11/06/2024 NOV: none Patient canceled last visit Refill denied Per refill policy, patient must have a follow up scheduled PSS: please assist with scheduling follow up Iqra Vega RN [facility] 2025-02-01 09:33:49 Refill: Vitamin D 50,000 RADHA: 11/06/2024 NOV: 03/24/2025 Refill denied. Will need to review at next visit with labs , therapy was for 12 weeks. NOLOGY PROJECT MANAGER Iqra Vega RN [facility] 2025-01-01 11:31:16 Form received: [facility] PA: Ozempic 0.25/0.5 mg PA Approved Approval dates: 12/30/2024- 12/30/2025 Vega RN [facility] 2024-12-30 08:51:59 PA completed Sheth [id number] Pending determination Harris RN [facility] 2024-12-29 16:05:58 Images from the original note were not included. Hyman [facility] 2024-11-18 15:15:00 Images from the original note were not included. Patient has been identified by and was provided with cup, antiseptic towelette, and clean catch instructions. 1 urine specimen(s) sent. Unpreserved 1 Urine Culture Aptima tube Other urine [facility] 2024-11-06 15:30:00 Addended by: JESUS MARES on: 11/11/2024 05:34 PM Modules accepted: Orders [facility] 2021-10-29 20:56:00 [facility] Name: BRIANA PARRISH [address] [facility] : 1995, Age: 26, Sex: [place] [address] Unit #: [id number], Status: REG [facility] Location: CSHLD/OP Report Dict Dr.: Georgia Cotton MD Admission Date: Report #: [id number] Discharge Date: CC: Labor and Delivery H [...] Medical History: Anxiety, depression, HPV Current medications: pre- vitamins, other (meclazine and zofran) Previous surgical [...] gravid Extremeties: no edema FHT: category 1 [place] contractions every: none - Assessment 26 at [...] 10/29/21 2158 Georgia Cotton STLSJX 2021-10-04 11:46:00 [facility] Name: BRIANA PARRISH [address] [facility] : 1995, Age: 26, Sex: [place] [address] Unit #: [id number], Status: REG [facility] Location: CSHLD/OP Report Dict DrTennille: Mariana Vega DO Admission Date: Report #: [id number] Discharge Date: CC: Labor and Delivery H [...]
[2025-04-26 18:58] LABS: Absolute Basophils 0.1 K/uL (0-0.5); Absolute Eosinophils 0.4 K/uL (0-0.5); Absolute Lymphocytes (CBC) 2.7 K/uL (0.7-4.9); Absolute Monocytes 0.9 K/uL (0.1-1.3); Absolute Neutrophil 7.6 K/uL (1.8-8.0); Basophils % 0.9 % (0-1.3); Eosinophils % 3.7 % (0-4.4); Hematocrit 41.3 % (36.0-45.0); Hemoglobin 13.9 g/dL (12.0-15.0); MCH 28.9 pg (27.0-35.0); MCHC 33.6 g/dL (32.0-36.0); MPV 8.7 fL (7.6-11.3); Monocytes % 7.7 % (3.3-12.3); Neutrophils % 64.7 % (41.7-73.7); Platelets 335 thou/uL (152-406); RBC Red Blood Cell Count 4.81 M/uL (3.86-4.86); Red Cell Distribution Width 14.2 % (12.1-15.2)
[2025-04-26] MEDS ORDERED: LIDOCAINE VISCOUS 2% 10ML ORAL SOLN ONE (19:00)
[2025-04-26] MEDS ORDERED: MAGNES/ALUMIN/SIMET 30ML UCUP ONE (19:00)
[2025-04-26] MEDS ORDERED: MORPHINE 4 MG/ML SYR ONE (19:00)
[2025-04-26] MEDS ORDERED: ONDANSETRON 4 MG/2 ML VIAL ONE (19:00)
[2025-04-26] MEDS ORDERED: NA CHLORIDE 0.9% 1,000 ML ONE (19:01)
[2025-04-26 19:15] LABS: Specific Gravity 1.024 (1.005-1.030); Urine Bacteria None Seen /HPF (<20); Urine Bilirubin NEGATIVE (Negative); Urine Blood Negative (Negative); Urine Clarity Turbid (Clear); Urine Color Light-Yellow (Yellow); Urine Crystals Unidentified Few /HPF (None Seen); Urine Culture Reflex Order NOT NEEDED; Urine Glucose NEGATIVE (Negative); Urine Ketones NEGATIVE (Negative); Urine Microscopic Reflex YN ORDER UMIC; Urine Nitrite NEGATIVE (Negative); Urine Protein NEGATIVE (Negative); Urine RBC <5 /HPF (None Seen); Urine Urobilinogen Normal (Normal); Urine WBC <5 /HPF (<5)
[2025-04-26 19:18] LABS: ALT/SGPT 26 U/L (13-56); Albumin 3.9 g/dL (3.4-5.0); Alkaline Phosphatase 92 U/L (45-117); Anion Gap 9.6 mEq/L (5.0-15.0); BUN Blood Urea Nitrogen 16 mg/dL (7-18); Bicarbonate 27 mEq/L (21-32); Bilirubin Total 0.2 mg/dL (0.2-1.0); Globulin 3.9 g/dL (2.3-3.5); Glomerular Filtration Rate 122 ml/min (=/>90); Glucose Level 118 mg/dL (74-106); Lipase 33 U/L (13-75); Potassium 3.6 mEq/L (3.5-5.1); Protein, Total 7.8 g/dL (6.4-8.2); Sodium Level 138 mEq/L (136-145); Troponin High Sensitivity 5.6 pg/mL (<58.9)
[2025-04-26 19:21] LABS: AST/SGOT < 10 U/L (15-37)
--- NOTE | 2025-04-26 19:47 | ER ---
Nurse's Notes [facility] Name: Nina Parrish Age: 29 yrs Sex: Female : 1995 Arrival Date: 04/26/2025 Time: 18:05 Bed 25 Private MD: Diagnosis: Gastro-esophageal reflux disease without esophagitis Presentation: 04/26 18:14 Chief complaint: Headache and epigastric pain x 2 hrs. Coronavirus screen: At this hb time, the client does not indicate any symptoms associated with coronavirus-19. Ebola Screen: No symptoms or risks identified at this time. Initial Sepsis Screen: Does the patient meet any 2 criteria? No. Patient's initial sepsis screen is negative. Does the patient have a suspected source of infection? No. Patient's initial sepsis screen is negative. Risk Assessment: Do you want to hurt yourself or someone else? Patient reports no desire to harm self or others. Onset of symptoms was April 26, 2025. 18:14 Method Of Arrival: Ambulatory hb 18:14 Acuity: OMAIRA 3 hb Historical: - Allergies: 18:15 shrimp; hb - PMHx: 18:15 depressive disorder; diabetes mellitus; Hypercholesterolemia; hb - PSHx: 18:15 colposcopy; D\T\C; hb - Immunization history:: Adult Immunizations up to date. - Infectious Disease History:: Denies. - Social history:: Smoking status: Reported history of juuling and/or vaping. Screenin:08 [facility] ED Fall Risk Assessment (Adult) History of falling in the last 3 months, jb4 including since admission No falls in past 3 months (0 pts) Confusion or Disorientation No (0 pts) Intoxicated or Sedated No (0 pts) Impaired Gait No (0 pts) Mobility Assist Device Used No (0 pt) Altered Elimination No (0 pt) Score/Fall Risk Level 0 - 2 = Low Risk Oriented to surroundings, Maintained a safe environment. Abuse screen: Denies threats or abuse. Nutritional screening: No deficits noted. Tuberculosis screening: No symptoms or risk factors identified. Assessment: 19:00 General: Appears in no apparent distress. comfortable, Behavior is calm, cooperative, jb4 appropriate for age. Pain: Complains of pain in epigastric area Pain does not radiate. Pain currently is 5 out of 10 on a pain scale. Quality of pain is described as burning. Neuro: Level of Consciousness is awake, alert, obeys commands, Oriented to person, place, time, situation. Cardiovascular: Patient's skin is warm and dry. Respiratory: Airway is patent Respiratory effort is even, unlabored, Respiratory pattern is regular, symmetrical. Derm: Skin is intact, Skin is pink, warm \T\ dry. Musculoskeletal: Circulation, motion, and sensation intact. Range of motion: intact in all extremities. 20:08 Reassessment: Patient appears in no apparent distress at this time. Patient and/or jb4 family updated on plan of care and expected duration. Pain level reassessed. Patient is alert, oriented x 3, equal unlabored respirations, skin warm/dry/pink. Patient states feeling better. Vital Signs: 18:14 BP 135 / 86; Pulse 88; Resp 16; Temp 98.1; Pulse Ox 100% on R/A; Weight 95.25 kg; hb Height 5 ft. 1 in. ; Pain 5/10; 19:24 BP 113 / 77; Pulse 84; Resp 16; Pulse Ox 96% on R/A; jb4 18:14 Body Mass Index 39.68 (95.25 kg, 154.94 cm) hb 18:14 Pain Scale: Adult hb ED Course: 18:06 Patient arrived in ED. mr 18:07 Ariela Paredes FNP-C is PHCP. kb 18:07 Fabien Perkins MD is Attending Physician. kb 18:11 PHCP role handed off by Ariela Paredes FNP-C dr5 18:11 Spike Charles FNP-C is PHCP. dr5 18:15 Triage completed. hb 18:15 Arm band placed on. hb 18:48 UA Rfx Maximo Cult if indicated Sent. bc6 18:48 Troponin High Sensitivity Sent. bc6 18:48 CBC with Diff Sent. bc6 18:48 CMP Sent. bc6 18:48 Lipase Sent. bc6 18:48 Initial lab(s) drawn, by me, sent to lab. Urine collected: clean catch specimen, bc6 cloudy. Inserted saline lock: 20 gauge in left antecubital area, using aseptic technique. Blood collected. Flushed with 10 mL NS. 20:08 Patient has correct armband on for positive identification. Bed in low position. Call jb4 light in reach. Side rails up X 1. Provided Education on: discharge instructions.. 20:08 No provider procedures requiring assistance completed. IV discontinued, intact, jb4 bleeding controlled, No redness/swelling at site. Pressure dressing applied. Patient maintains SpO2 saturation greater than 95% on room air. Administered Medications: 19:10 Drug: Ondansetron IVP 4 mg IVP once; over 2 minutes Route: IVP; Site: left antecubital; jb4 19:10 Drug: NS 0.9% IV 1000 ml IV at 1 bolus Per protocol; to be given as a bolus over 60 jb4 minutes Route: IV; Rate: 1 bolus; Site: left antecubital; 19:10 Drug: GI Cocktail without - (Maalox PO 30 ml, Lidocaine Mucous Membrane 2 % 15 jb4 ml) PO once Route: PO; 19:22 Drug: morphine IVP or IV 4 mg IVP once over 4 mins Route: IVP; Infused Over: 4 mins; jb4 Site: left antecubital; Medication: 20:08 VIS not applicable for this client. jb4 Outcome: 19:47 Discharge ordered by . kirill 20:08 Discharged to home ambulatory, jb4 20:08 Condition: stable 20:08 Discharge instructions given to patient, Instructed on discharge instructions, follow up and referral plans. medication usage, Demonstrated understanding of instructions, follow-up care, medications, Prescriptions given X 2, 20:10 Patient left the ED. jb4 Signatures: Ariela Paredes, AILYN-C RETAIL MERCHANDISING COORDINATOR-Ckb Courtney Raza, Reg Reg mr Suzanna Nicholson RN RN hb Bryson, James, RN RN jb4 Teodora Cam [facility] Spike Charles FNP-C FNP-Cdr5
--- NOTE | 2025-04-26 19:47 | EDPHYS ---
Physician Documentation [facility] Name: Nina Parrish Age: 29 yrs Sex: Female : 1995 Arrival Date: 04/26/2025 Time: 18:05 Bed 25 Private MD: ED Physician Fabien Perkins HPI: 04/26 19:48 This 29 yrs old Female presents to ER via Ambulatory with complaints of dr5 Epigastric Pain, Headache. 19:48 Patient is a 29-year-old female with history of hyperlipidemia, diabetes, depression dr5 coming in with epigastric abdominal pain that started 2 hours prior to arrival. Patient reports that she ate was cake. Patient denies fever, nausea, vomiting, diarrhea.. Historical: - Allergies: 18:15 shrimp; hb - PMHx: 18:15 depressive disorder; diabetes mellitus; Hypercholesterolemia; hb - PSHx: 18:15 colposcopy; D\T\C; hb - Immunization history:: Adult Immunizations up to date. - Infectious Disease History:: Denies. - Social history:: Smoking status: Reported history of juuling and/or vaping. ROS: 19:48 Constitutional: as per hpi dr5 Exam: 19:48 Constitutional: This is a well developed, well nourished patient who is awake, alert, dr5 and in no acute distress. Head/Face: Normocephalic, atraumatic. Eyes: Pupils equal round and reactive to light, extra-ocular motions intact. Lids and lashes normal. Conjunctiva and sclera are non-icteric and not injected. Cornea within normal limits. Periorbital areas with no swelling, redness, or edema. ENT: Nares patent. No nasal discharge, no septal abnormalities noted. Tympanic membranes are normal and external auditory canals are clear. Oropharynx with no redness, swelling, or masses, exudates, or evidence of obstruction, uvula midline. Mucous membranes moist. Chest/axilla: Normal chest wall appearance and motion. Nontender with no deformity. No lesions are appreciated. Cardiovascular: Regular rate and rhythm with a normal S1 and S2. Normal PMI, no JVD. No pulse deficits. Respiratory: Lungs have equal breath sounds bilaterally, clear to auscultation. No rales, rhonchi or wheezes noted. No increased work of breathing, no retractions or nasal flaring. Abdomen/GI: Soft, non-tender, non-distended Back: No spinal tenderness. No costovertebral tenderness. Full range of motion. Skin: Warm, dry with normal turgor. Normal color with no rashes, no lesions, and no evidence of cellulitis. MS/ Extremity: Pulses equal, no cyanosis. Neurovascular intact. Full, normal range of motion. Vital Signs: 18:14 BP 135 / 86; Pulse 88; Resp 16; Temp 98.1; Pulse Ox 100% on R/A; Weight 95.25 kg; hb Height 5 ft. 1 in. ; Pain 5/10; 19:24 BP 113 / 77; Pulse 84; Resp 16; Pulse Ox 96% on R/A; jb4 18:14 Body Mass Index 39.68 (95.25 kg, 154.94 cm) hb 18:14 Pain Scale: Adult hb MDM: 18:07 Medical Screening Exam initiated kb 19:48 Differential diagnosis: viral Infection, bacterial infection, gastroenteritis, GERD. dr5 Data reviewed: vital signs, nurses notes, lab test result(s), radiologic studies. I considered the following discharge prescriptions or medication management in the emergency department Medications were administered in the Emergency Department. See MAR. Care significantly affected by the following chronic conditions: Diabetes, Hypertension. Care significantly affected by the following Social Determinants of Health: Poor access to healthcare and/or lack of insurance, Poor access to transportation, Problems related to employment. Counseling: I had a detailed discussion with the patient and/or guardian regarding the historical points, exam findings, and any diagnostic results supporting the discharge/admit diagnosis, the presence of at least one elevated blood pressure reading (>120/80) during this emergency department visit, lab results, radiology results, the need for outpatient follow up, for definitive care, a family practitioner, a craps dealer, to return to the emergency department if symptoms worsen or persist or if there are any questions or concerns that arise at home. ED course: Patient's pain has resolved and is feeling much better. Will start patient on PPI and have patient follow with GI this week. All questions answered. Recommended patient alternate Tylenol Motrin as needed for pain. Refrain from spicy or fatty foods.. 04/26 18: Order name: CBC with Diff; Complete Time: 19:03 hb 04/26 18:23 Order name: CMP; Complete Time: 19:22 hb 04/26 18:23 Order name: Lipase; Complete Time: 19:22 hb 04/26 18:23 Order name: Troponin High Sensitivity; Complete Time: 19:22 hb 04/26 18:23 Order name: UA Rfx Maximo Cult if indicated; Complete Time: 19:16 hb 04/26 18:46 Order name: Test, Urine dr5 04/26 18:23 Order name: IV Saline Lock; Complete Time: 18:48 hb 04/26 18:23 Order name: Labs collected and sent; Complete Time: 18:48 hb Administered Medications: 19:10 Drug: Ondansetron IVP 4 mg IVP once; over 2 minutes Route: IVP; Site: left antecubital; jb4 19:10 Drug: NS 0.9% IV 1000 ml IV at 1 bolus Per protocol; to be given as a bolus over 60 jb4 minutes Route: IV; Rate: 1 bolus; Site: left antecubital; 19:10 Drug: GI Cocktail without - (Maalox PO 30 ml, Lidocaine Mucous Membrane 2 % 15 jb4 ml) PO once Route: PO; 19:22 Drug: morphine IVP or IV 4 mg IVP once over 4 mins Route: IVP; Infused Over: 4 mins; jb4 Site: left antecubital; Disposition: 21:03 Co-signature as Attending Physician, Fabien Perkins MD I reviewed the patient's care rt provided by the Advanced Practice Provider and agree with the diagnosis and treatment plan. Disposition Summary: 04/26/25 19:47 Discharge Ordered Notes: Location: Home dr5 Condition: Stable dr5 Diagnosis - Gastro-esophageal reflux disease without esophagitis dr5 Followup: dr5 - With: Emergency Department - When: As needed - Reason: Worsening of condition Followup: dr5 - With: Private Physician - When: 1 - 2 days - Reason: Recheck today's complaints, Continuance of care, Re-evaluation by your physician Discharge Instructions: - Discharge Summary Sheet dr5 - Gastroesophageal Reflux Disease, Adult dr5 Forms: - Work release form dr5 - Medication Reconciliation Form dr5 - Patient Portal Instructions dr5 - Leadership Thank You Letter dr5 Prescriptions: - Protonix 40 mg Oral Tablet - take 1 tablet ORAL route once daily; 30 tablet; Refills: 0, Product Selection dr5 Permitted - Pepcid 20 mg Oral Tablet - take 1 tablet ORAL route once daily for 10 days; 10 tablet; Refills: 0, Product dr5 Selection Permitted Signatures: Dispatcher [employer] EDPA Ariela Paredes, CENTRAL OFFICE SUPERVISOR-C CENTRAL OFFICE SUPERVISOR-Ckb Suzanna Nicholson RN RN Timi Mcgee RN RN jb4 Fabien Perkins MD MD rt Micheal Charlesin, CENTRAL OFFICE SUPERVISOR-C CENTRAL OFFICE SUPERVISOR-Cdr5 Corrections: (The following items were deleted from the chart) 18:47 18:47 Test, Urine+[id number].LAB.BRZ ordered. EDMS EDMS 19:50 19:48 Constitutional: as per hpi Eyes: Negative for injury, pain, redness, and dr5 discharge, Neck: Negative for injury, pain, and swelling, Cardiovascular: Negative for chest pain, palpitations, and edema, Respiratory: Negative for shortness of breath, cough, wheezing, and pleuritic chest pain, Abdomen/GI: Negative for abdominal pain, nausea, vomiting, diarrhea, and constipation, Back: Negative for injury and pain, Skin: Negative for injury, rash, and discoloration, Neuro: Negative for headache, weakness, numbness, tingling, and seizure, Psych: Negative for depression, anxiety, suicide ideation, homicidal ideation, and hallucinations, dr5
[2025-04-26 20:17] VITALS: TEMP 98.1
[2025-04-26 20:18] VITALS: BP 113/77; O2SAT 96
[2025-04-26 21:31] LABS: Specific Gravity 1.024 (1.005-1.030)
== END 2025-04-26 20:10 | disposition home or self-care (01) ==
LOC: ER 18:05
DX: K21.9 Gastro-esophageal reflux disease without esophagitis (principal)
CPT/HCPCS: 85025; 81001; 36415; 81025; 84484; 83690; 80053; 96375; 96374; 99284; J2405; J7030